=== PATIENT | male | born 1955 | race Caucasian/White ===

== ENCOUNTER 2023-08-02 08:47 | Outpatient (CLI) | payer OTHER, SELFPAY ==
[2023-08-02 09:14] LABS: Basophils Absolute Auto 0.1 K/mm3 (0.0-0.1); Eosinophils Absolute Auto 0.3 K/mm3 (0-0.3); Eosinophils Percent Auto 5.3 % (0-4.4); Hematocrit 39.6 % (42.0-52.0); Hemoglobin 12.6 g/dL (14.0-18.0); Immature Granulocyte Absolute 0.01 K/mm3 (0.00-0.031); Immature Granulocyte Percent A 0.2 % (0-0.5); Lymphocytes Absolute Auto 1.88 K/mm3 (0.9-3.2); Lymphocytes Percent Auto 36.6 % (18.3-44.2); Mean Corpuscular HGB Conc 31.8 g/dl (32-36); Mean Corpuscular Hemoglobin 28.2 pg (26-34); Mean Corpuscular Volume 88.6 fl (80-100); Mean Platelet Volume 8.6 fl (7.4-10.4); Monocytes Absolute Auto 0.5 K/mm3 (0.1-0.6); Monocytes Percent Auto 9.6 % (2.6-8.5); Neutrophils Absolute Auto 2.4 K/mm3 (1.3-6.7); Neutrophils Percent Auto 47.3 % (45.5-73.1); Platelet Count Result 138 k/mm3 (150-375); Red Blood Count 4.47 M/mm3 (4.6-6.20); Red Cell Distribution Width 13.4 % (11.5-14.5); White Blood Count 5.1 K/mm3 (4.5-10.0)
[2023-08-02 09:30] LABS: Alanine Aminotransferase 59 U/L (6-50); Albumin Level 4.1 g/dL (3.5-5.1); Alkaline Phosphatase 159 U/L (38-126); Anion Gap 9 mmol/L (4-12); Aspartate Amino Transferase 46 U/L (17-59); Bilirubin,Total 0.4 mg/dL (0.2-1.3); Blood Urea Nitrogen 24 mg/dL (9-20); Calcium 9.5 mg/dL (8.4-10.2); Carbon Dioxide 21 mmol/L (22-30); Chloride 113 mmol/L (98-107); Cholesterol 118 mg/dL (0-200); Estimated Glomerular Filt Rate 51; Glucose 150 mg/dL (65-110); HDL Direct 40 mg/dL; Potassium 4.4 mmol/L (3.4-5.0); Sodium 143 mmol/L (137-145); Triglycerides 78 mg/dL (<150)
[2023-08-02 09:41] LABS: LDL Cholesterol Direct 62 mg/dL
[2023-08-02 09:42] LABS: Appearance Urine Clear (Clear); Bacteria Urine None Seen /hpf; Bilirubin Urine Negative (Negative); Blood Urine Negative (Negative); Color Urine Yellow (Yellow); Glucose Urine UA Negative (Negative); Ketones Urine Negative (Negative); Leukocyte Esterase Ur Negative LEU/UL (Negative); Need Manual Microscopic Reviewed; Nitrate Urine Negative (Negative); Protein Urine Trace mg/dL (Negative); RBC Urine 0-2 /hpf (0-2); Squamous Epithelial Cell Urine Occasional /hpf (Few); Urobilinogen Urine 0.2 mg/dL (<2.0); WBC Urine 0-5 /hpf (0-3); pH Urine 5.5 (5.0-9.0)
[2023-08-02 09:44] LABS: Add Urine Microscopic? YES
[2023-08-02 09:48] LABS: Creatinine Urine 108.6 mg/dL
[2023-08-02 09:52] LABS: MALB Creatinine Ratio 12.3 mg/g (0-30); Microalbumin Urine Random 13.4 mg/L (0-16.7)
== END 2023-08-02 08:48 | disposition home or self-care (01) ==
PROVIDERS: PCP Family Medicine; Visit Provider Internal Medicine
DX: Z00.00 Encounter for general adult medical examination without abnormal findings (principal); Z13.1 Encounter for screening for diabetes mellitus; Z76.89 Persons encountering health services in other specified circumstances
CPT/HCPCS: 36415; 80053; 80061; 81001; 82043; 83036; 84153; 85025

== ENCOUNTER 2024-09-25 13:51 | Emergency (ER) | payer OTHER, SELFPAY ==
--- NOTE | ~2024-09-25 | CT_ITS ---
CT abdomen pelvis wo con Ordering provider: Colin Husain MD History: 68 years Male with . hematuria, hx stones . Comparison: None. Technique: CT abdomen and pelvis without IV and without oral contrast. Automated exposure control and iterative reconstruction technique were employed. The dose-length product was 876.96 mGy-cm. Findings: VISUALIZED LOWER CHEST: Normal. UPPER ABDOMINAL ORGANS: Liver: Lobulated outline suggestive of cirrhosis. Gallbladder: Small hyperdensity near to the neck suggestive of a stone. Ultrasound evaluation advised . Spleen: Normal. Stomach/duodenum: Normal. Pancreas: Normal. Adrenals: Normal. Kidneys: Multiple stones in the left kidney lower pole with the largest measures 5.4 mm. Tiny cyst is seen in the left kidney lower pole. Exophytic Soft tissue density also seen in the left kidney lower pole which measures 1.3 cm most likely a cyst. Follow-up advised. No definite left hydroureter or hydronephrotic changes seen. Calcific shadow is seen along the course of the left ureter in the pelvis most likely outside and measures 5 mm. Minimal fat stranding seen i n the area. Follow-up advised. Tiny stone in the right kidney lower pole. PELVIC ORGANS: The bladder is normal. BOWEL AND MESENTERY: Colon: No evidence of diverticulitis.. Normal appendix. Small Bowel: Normal. No obstruction. Peritoneum/mesentery: No free air or free fluid. No mesenteric lymphadenopathy. RETROPERITONEUM: Mild atheromatous disease of the abdominal aorta. No retroperitoneal lymphadenopat hy. MUSCULOSKELETAL: Superficial soft tissues: The superficial soft tissues are normal. Bones: Age appropriate degenerative changes of the spine. Erect symphysitis. Bilateral hip osteoarthr itic changes. IMPRESSION: 1. Bilateral kidney stones. 2. Calcific shadow which measures 5 mm seen along the course of the left ureter which may be an old adjacent to the ureter.. No definite left hydroureter or hydronephrotic changes seen. Minimal fat str anding is seen in the same area. Follow-up advised. 3. Highly suggestive liver cirrhosis. Clinical correlation advised. 4. Possible cholelithiasis. Ultrasound evaluation advised. 5. Soft tissue density in the left kidney. Follow-up advised. Reviewed, dictated and finalized at location A. IMPRESSION: 1. Bilateral kidney stones. 2. Calcific shadow which measures 5 mm seen along the course of the left urete r which may be an old adjacent to the ureter.. No definite left hydroureter or hydronephrotic changes seen. Minimal fat stranding is seen in the same area. Fo llow-up advised. 3. Highly suggestive liver cirrhosis. Clinical correlation advised. 4. Possible cholelithiasis. Ultrasound evaluation advised. 5. Soft tissue density in the left kidney. Follow-up advised.
[2024-09-25 14:08] VITALS: BP 136/78; PULSE 99; RESP 16; TEMP 36.9; O2SAT 100
[2024-09-25 14:54] VITALS: BP 136/78; PULSE 99; RESP 18; TEMP 36.9; O2SAT 100
--- NOTE | 2024-09-25 14:54 | ED_ITS ---
HPI - Male Genitourinary General Chief complaint: Urogenital-Male Stated complaint: hematuria, hx of kidney stones Time Seen by Provider: 09/25/24 14:46 History of Present Illness HPI Narrative: 68-year-old male with a past medical history including kidney stones requiring lithotripsy. Patient presents to the emergency department with right-sided flank pain and hematuria. States it feels very similar to his normal kidney stone. He has passed numerous stones without any interventions otherwise. Denies any fever, chills, nausea, vomiting abdominal pain. No trauma or injury. No urinary pain, dysuria, urgency, retention, or foul odor. Review of Systems 2 Review of Systems: As reviewed above in HPI Exam 2 Narrative: GENERAL: [Well-appearing, well-nourished, and in no acute distress.] HEAD: [Normocephalic, atraumatic.] EYES: [PERRLA and EOMI.] ENT: Nares clear, no rhinorrhea or epistaxis. Mucous membranes moist. NECK: Supple. CHEST: [Clear to auscultation. No respiratory distress.] HEART: [Regular rate and rhythm]. No murmur heard. [Normal peripheral pulses.] ABDOMEN: [Soft, nondistended], [nontender], [No rigidity or guarding] EXTREMITIES: Normal range of motion. [No edema.] SKIN: Warm, dry, no rash. NEURO: [No focal deficits]. Alert and oriented [x3.] PSYCH: [Normal mood and affect.] Course Vital Signs Vital signs: Vital Signs Temperature 36.9 C 09/25/24 14:08 Pulse Rate 99 09/25/24 14:08 Respiratory Rate 16 09/25/24 14:08 Blood Pressure 136/78 09/25/24 14:08 Pulse Oximetry 100 09/25/24 14:08 Oxygen Delivery Room Air 09/25/24 14:08 Temperature 36.9 C 09/25/24 14:54 Pulse Rate 99 09/25/24 14:54 Respiratory Rate 18 09/25/24 14:54 Blood Pressure 136/78 09/25/24 14:54 Pulse Oximetry 100 09/25/24 14:54 Oxygen Delivery Room Air 09/25/24 14:54 MDM - Male Genitourinary MDM Narrative Medical decision making narrative: 68-year-old male with history of kidney stones 1 previously requiring lithotripsy. Patient presents to the emergency room with right-sided flank discomfort and hematuria consistent with his kidney stone. Denies any fever, chills, nausea, vomiting, dysuria, hematuria, foul odor or retention. Patient otherwise is well appearing not any acute distress with normal vital signs without any tachycardia, fever, hypoxia blood pressure concerns. Considerations presently are for nephrolithiasis, urolithiasis, bladder stone, hematuria from an infection or cystitis. CT scan without contrast was ordered for delineation and a urinalysis obtained as well as blood work to assess kidney function. Patient is comfortable at this time and does not require analgesia medications. Previously seen Dr. Felipe from urology. Patient's laboratory studies reassuring. No leukocytosis or anemia. Normal platelet count. Electrolytes normal. Normal creatinine from baseline. Slightly hyperglycemic 192. LFTs mildly elevated but consistent with his previous levels. Urinalysis shows blood but no signs of infection. CT scan finding shows bilateral kidney stones and a 5 mm calcific structure in the left ureter. Liver cirrhosis evident, cholelithiasis without cholecystitis. Soft tissue density in left kidney. Patient made aware of the above imaging findings and given his symptomatic control at this time can be safely discharged with tamsulosin and follow up with his urologist. Patient's questions were answered he was safe for discharge. Medical Records Attestation: I reviewed the patient's medical records. Lab Data Attestation: I reviewed the patient's lab results. 09/25/24 15:14 09/25/24 15:14 Labs: Lab Results 09/25/24 09/25/24 Range/Units 14:42 15:14 WBC 6.0 (4.5-10.0) K/mm3 RBC 5.18 (4.6-6.20) M/mm3 Hgb 14.6 (14.0-18.0) g/dL Hct 45.2 (42.0-52.0) % MCV 87.3 (80-100) fl MCH 28.2 (26-34) pg MCHC 32.3 (32-36) g/dl RDW 13.4 (11.5-14.5) % Plt Count 146 L (150-375) k/mm3 MPV 9.1 (7.4-10.4) fl Immature Gran % (Auto) 0.2 (0-0.5) % Neut % (Auto) 45.7 (45.5-73.1) % Lymph % (Auto) 38.2 (18.3-44.2) % [place] % (Auto) 10.1 H (2.6-8.5) % Eos % (Auto) 4.8 H (0-4.4) % Baso % (Auto) 1.0 (0.2-1.2) % Lymph # (Auto) 2.30 (0.9-3.2) K/mm3 [place] # (Auto) 0.6 (0.1-0.6) K/mm3 Eos # (Auto) 0.3 (0-0.3) K/mm3 Baso # (Auto) 0.1 (0.0-0.1) K/mm3 Abs Immat Gran (auto) 0.01 (0.00-0.031) K/mm3 Absolute Neuts (auto) 2.8 (1.3-6.7) K/mm3 Absolute Nucleated RBC 0.000 (0.0-0.012) K/mm3 Nucleated RBC % 0.0 (0.0-0.2) % Sodium 137 (137-145) mmol/L Potassium 4.4 (3.4-5.0) mmol/L Chloride 106 (98-107) mmol/L Carbon Dioxide 21 L (22-30) mmol/L Anion Gap 10 (4-12) mmol/L BUN 24 H (9-20) mg/dL Creatinine 1.30 (0.7-1.3) mg/dL Estim Creat Clear Calc 49 ml/min Estimated GFR 55 L (59 - ) Glucose 192 H (65-110) mg/dL Calcium 9.3 (8.4-10.2) mg/dL Total Bilirubin 0.3 (0.2-1.3) mg/dL AST 68 H (17-59) U/L ALT 98 H (6-50) U/L Alkaline Phosphatase 167 H (38-126) U/L Total Protein 7.5 (6.3-8.2) g/dL Albumin 4.4 (3.5-5.1) g/dL Urine Color Yellow (Yellow) Urine Appearance Clear (Clear) Urine pH 5.5 (5.0-9.0) Ur Specific [place] 1.022 (1.001-1.035) Urine Protein Negative (Negative) mg/dL Urine Glucose (UA) Trace H (Negative) mg/dL Urine Ketones Trace H (Negative) mg/dL Ur Blood (Man) 3+ H (Negative) Urine Nitrate Negative (Negative) Urine Bilirubin Negative (Negative) Urine Urobilinogen 0.2 (<2.0) mg/dL Leukocyte Esterase Rfl Negative (Negative) CAESAR/UL Urine RBC >100 H (0-2) /hpf Urine WBC 0-5 (0-3) /hpf Ur Squamous Epith Cells None seen (Few) /hpf Urine Bacteria None seen /hpf Urine Casts 0-2 Imaging Data Attestation: I personally reviewed and interpreted this imaging study as follows: My impression: Impressions Abdomen/Pelvis CT 09/25/24 15:31 IMPRESSION: 1. Bilateral kidney stones. 2. Calcific shadow which measures 5 mm seen along the course of the left ureter which may be an old adjacent to the ureter.. No definite left hydroureter or hydronephrotic changes seen. Minimal fat stranding is seen in the same area. Follow-up advised. 3. Highly suggestive liver cirrhosis. Clinical correlation advised. 4. Possible cholelithiasis. Ultrasound evaluation advised. 5. Soft tissue density in the left kidney. Follow-up advised. Discharge Plan Discharge Clinical Impression: Kidney stones, Elevated LFTs, Abnormal CT scan, kidney Patient Disposition: Home Condition: Stable Instructions: Antibiotic Form, Kidney Stones (ED), How to Strain Your Urine (ED), Flank Pain (ED) Additional Instructions: Your CT scan shows bilateral kidney stones and 1 in the left side as approximately 5 mm. No signs of hydronephrosis. You do have a soft tissue density in the left kidney that need some outpatient follow-up for repeat imaging and monitoring. Your CT scan also shows some incidental findings including potential liver cirrhosis any do have mildly elevated LFTs which are consistent. You also have some potential gallstones which are not causing any issues at this time. Follow-up with regular doctor about all these as well as your urologist. Return with any emergent concerns we will send you home with some Flomax. Patient Language: Trinidadian Prescriptions: New tamsulosin [Flomax] 0.4 mg capsule 0.4 mg PO DAILY Qty: 20 0RF Follow-up/Referrals: Davi Fernández MD [Physician] - 1 Week (Kidney stones, hematuria) Mango Ramos MD [Physician] - Time of Disposition: 17:05
[2024-09-25 15:08] LABS: Add Urine Microscopic? YES; Appearance Urine Clear (Clear); Bacteria Urine None Seen /hpf; Bilirubin Urine Negative (Negative); Blood Urine 3+ (Negative); Color Urine Yellow (Yellow); Glucose Urine UA Trace mg/dL (Negative); Ketones Urine Trace mg/dL (Negative); Leukocyte Esterase Ur Negative LEU/UL (Negative); Nitrate Urine Negative (Negative); Non Pathogenic Casts 0-2; Protein Urine Negative (Negative); RBC Urine >100 /hpf (0-2); Specific Grav Ur 1.022 (1.001-1.035); Squamous Epithelial Cell Urine None Seen /hpf (Few); Urobilinogen Urine 0.2 mg/dL (<2.0); WBC Urine 0-5 /hpf (0-3); pH Urine 5.5 (5.0-9.0)
[2024-09-25 15:40] LABS: Basophils Absolute Auto 0.1 K/mm3 (0.0-0.1); Eosinophils Absolute Auto 0.3 K/mm3 (0-0.3); Eosinophils Percent Auto 4.8 % (0-4.4); Hematocrit 45.2 % (42.0-52.0); Hemoglobin 14.6 g/dL (14.0-18.0); Immature Granulocyte Absolute 0.01 K/mm3 (0.00-0.031); Immature Granulocyte Percent A 0.2 % (0-0.5); Lymphocytes Percent Auto 38.2 % (18.3-44.2); Mean Corpuscular HGB Conc 32.3 g/dl (32-36); Mean Corpuscular Hemoglobin 28.2 pg (26-34); Mean Corpuscular Volume 87.3 fl (80-100); Mean Platelet Volume 9.1 fl (7.4-10.4); Monocytes Absolute Auto 0.6 K/mm3 (0.1-0.6); Monocytes Percent Auto 10.1 % (2.6-8.5); Neutrophils Absolute Auto 2.8 K/mm3 (1.3-6.7); Neutrophils Percent Auto 45.7 % (45.5-73.1); Platelet Count Result 146 k/mm3 (150-375); Red Blood Count 5.18 M/mm3 (4.6-6.20); Red Cell Distribution Width 13.4 % (11.5-14.5)
[2024-09-25 15:50] LABS: Alanine Aminotransferase 98 U/L (6-50); Albumin Level 4.4 g/dL (3.5-5.1); Alkaline Phosphatase 167 U/L (38-126); Anion Gap 10 mmol/L (4-12); Aspartate Amino Transferase 68 U/L (17-59); Bilirubin,Total 0.3 mg/dL (0.2-1.3); Blood Urea Nitrogen 24 mg/dL (9-20); Calcium 9.3 mg/dL (8.4-10.2); Carbon Dioxide 21 mmol/L (22-30); Chloride 106 mmol/L (98-107); Estimated CRCL calculation 49 ml/min; Estimated Glomerular Filt Rate 55; Glucose 192 mg/dL (65-110); Potassium 4.4 mmol/L (3.4-5.0); Sodium 137 mmol/L (137-145); Total Protein 7.5 g/dL (6.3-8.2)
== END 2024-09-25 17:26 | disposition home or self-care (01) ==
PROVIDERS: Physician Assistant; Emergency Provider Student in an Organized Health Care Education/Training Program; PCP Internal Medicine
DX: N20.0 Calculus of kidney (principal); R79.89 Other specified abnormal findings of blood chemistry; R93.429 Abnormal radiologic findings on diagnostic imaging of unspecified kidney
CPT/HCPCS: 36415; 74176; 80053; 81001; 85025; 99284

== ENCOUNTER 2024-12-12 08:50 | Outpatient (CLI) | payer OTHER, SELFPAY ==
--- OUTSIDE RECORDS SUMMARY | 2024-12-12 09:08 | XMS_ITS | Clinical Summary ---
Author Organization [facility] Address [address] [place] [address] Care Team Providers Care Veterans Adviser Name Role Phone Shannon Melgar MD Unavailable Unknown, Provider Primary Care Provider Unavaila ble Source Comments [facility],non-owned Affiliates and Associated Physician Practices is amultiple site organization consisting of ambulatory clinics and hospital sitesin [place], [place] and [place]. This disclosure is being madepursuant to the Care Everywhere program and may not contain all information available regarding this patient. Last updated 18.[facility] Encounters Date Type Department Care Team Description 11/27/2024 3:15 PM CDT - 11/27/2024 11:59 PM CDT Hospital Encounter [address] [id number] Shannon Melgar MD Discharge Disposition: Home or Self Care 11/27/2024 Travel from Last 3 Months Social History Tobacco Use Types Packs/Day Years Used Date Smoking Tobacco: Never Assessed Sex and Gender Information Value Date Recorded Sex Assigned at Male 06/18/2024 8:32 AM [employer] Legal Sex Male 8:32 AM [employer] Gender Identity Male 06/18/2024 8:32 AM [employer] Sexual Orientation Not on file Plan of Treatment Health Maintenance Due Date Last Done Comments COLOGUARD (AGES 45-75) - COL ON CA SCREENING 1956 COLON MONITORING 1956 COLONOSCOPY - COLON CA SCREENING 1956 CT COLONOGRAPHY - COLON CA SCREENING 1956 Colorectal Cancer Screening 1956 FIT - COLON CA SCREENING 1956 FLEX SIG - COLON CA SCREENING 1956 DTAP/TDAP/TD VACCINES (1 - Tdap) 12/14/1975 PNEUMOCOCCAL VACCINE 50+ (1 of 2 - PCV) 12/14/1975 ZOSTER VACCINE (1 of 2) 2006 HEPATITIS B VACCINE (1 of 3 - Risk 3-dose series) 2016 Respiratory Syncytial Virus (RSV) Vaccine Pt: or over 60 yrs (1 - Risk 60-74 years 1-dose series) 2016 COVID-19 VACCINE (2 - 2023-2 5 season) 2024 02/08/2024 DEPRESSION SCREENING 04/17/2024 INFLUENZA VACCINE (#1) 2024 01/25/2024 LIPID TESTING 01/30/2029 01/31/2024, 12/01/2022 HEPATITIS C SCREENING Completed 01/31/2024 HIB VACCINE Aged Out No longer eligi ble based on patient's age to complete this topic HPV VACCINE Aged Out No longer eligi ble based on patient's age to complete this topic MENINGOCOCCAL (Group B) VACCINE SHARED DECISION-MAKING Aged Out No longer eligible based on patient's age to complete this topic MENINGOCOCCAL GROUPS A/C/Y/W VACCINE Aged Out No longer eligible b ased on patient's age to complete this topic Procedures Procedure Name Priority Date/Time Associated Diagnosis Comments US ELASTOGRAPHY Routine 11/27/2024 3:59 PM CDT Cirrhosis of liver without ascites, unspecified hepatic cirrhosis type (HCC) from Last 3 Months Results * US Elastography (11/27/2024 3:59 PM CDT) Anatomical Region Laterality Modality Abdomen Ultrasound 11/27/2024 4:47 PM CDT Impressions 11/27/2024 8:35 PM CDT Impression: Stiffness Score: Median 7.34 kPa. IQR/Median retio: 7.2. (Retio should be less than 30%). Reference: <5 kPa (1.3 m/sec)- High probability of being normal. <9 kPa (1.7 m/sec)- in the absence of other known clinical signs, rule out compensated advanced chronic liver disease (cACLD). If there is known clinical signs, May need for test for confirmation. 9-13 kPa (1.7-2.1 m/sec)-suggestive of cACLD but need for test for confirmation. >13 kPa (2.1 m/sec)- Rule in cACLD >17 kPa (2.4m/sec)- suggestive of clinically significant portal hypertension (CSPH). > Dictated by Kaur Ramírez 11/27/2024 4:47 PM > Dictated by Product Safety Manager I, Bairon Matos have personally reviewed and interpreted this examination/study. > Interpreting Provider: Bairon Matos on 11/27/2024 8:35 PM Narrative 11/27/2024 8:35 PM CDT PROCEDURE: US ELASTOGRAPHY, DATE/TIME OF EXAM: 11/27/2024 3:59 PM, LOCATION [facility] INDICATION: K74.60: Cirrhosis of liver without ascites, unspecified hepatic cirrhosis type (HCC) ADDITIONAL CLINICAL INFORMATION: Ordering Provider Reason For Exam: see media order Technologist Note: Additional: COMPARISON: None. Technique: A limited abdominal ultrasound was performed by using real-time and B-Mode to localize an optimal sampling site, to target only liver tissue. 50Hz Shear Wave pulses were applied and the resulting Shear Wave and Propagation Speed detected with an ultrasonic signal, using US Elastography. Skin to liver capsule distance and liver parenchyma were accessed during the entire examination with the US Elastography. At least ten Shear Waves were produced; individual measurements of each Shear Wave were calculated. Patient tolerated the procedure well and was discharged without incident. Findings: The median liver stiffness score was 7.34 kPa. The Interquartile Range (IQR) to Median ratio all measurement 7.2 %. Procedure Note Bairon Tineo MD - 11/27/2024 PROCEDURE: US ELASTOGRAPHY, DATE/TIME OF EXAM: 11/27/2024 3:59 PM, LOCATION [facility] INDICATION: K74.60: Cirrhosis of liver without ascites, unspecified hepaticcirrhosis type (HCC) ADDITIONAL CLINICAL INFORMATION: Ordering Provider Reason For Exam: see media order Technologist Note: Additional: COMPARISON: None. Technique: A limited abdominal ultrasound was performed by usingreal-time and B-Mode to localize an optimal sampling site, to target only liver tissue. 50Hz Shear Wave pulses were applied and the resulting Shear Wave and Propagation Speed detected with an ultrasonic signal, using US Elastography. Skin to liver capsule distance and liver parenchyma were accessed during the entire examination with the US Elastography. At least ten Shear Waves were produced; individual measurements of each Shear Wave were calculated. Patient tolerated the procedure well and was discharged withoutincident. Findings: The median liver stiffness score was 7.34 kPa. The Interquartile Range (IQR) to Median ratio all measurement 7.2 %. Impression: Stiffness Score: Median 7.34 kPa. IQR/Median retio: 7.2. (Retio shouldbe less than 30%). Reference: <5 kPa (1.3 m/sec)- High probability of being normal. <9 kPa (1.7 m/sec)- in the absence of other known clinical signs, ruleout compensated advanced chronic liver disease (cACLD). If there is known clinical signs, May need for test for confirmation. 9-13 kPa (1.7-2.1 m/sec)-suggestive of cACLD but need for test for confirmation. >13 kPa (2.1 m/sec)- Rule in cACLD >17 kPa (2.4m/sec)- suggestive of clinically significant portal hypertension (CSPH). > Dictated by Kaur Ramírez 11/27/2024 4:47 PM > Dictated by Product Safety Manager I, Bairon Matos have personally reviewed and interpreted this examination/study. > Interpreting Provider: Bairon Matos on 11/27/2024 8:35 PM us Shannon Melgar MD ORDERABLES Final Result from Last 3 Months Insurance [facility] Care Teams Veterans Adviser Relationship Specialty Start Date End Date Shannon Melgar MD [address] [address] PCP - Att[facility] 05/18/24 Unknown, Provider PCP - General 07/09/24
[2024-12-12 09:41] LABS: Hematocrit 44.6 % (42.0-52.0); Hemoglobin 14.4 g/dL (14.0-18.0); Immature Granulocyte Percent A 0.2 % (0-0.5); Lymphocytes Absolute Auto 1.86 K/mm3 (0.9-3.2); Mean Corpuscular HGB Conc 32.3 g/dl (32-36); Mean Corpuscular Hemoglobin 28.7 pg (26-34); Mean Corpuscular Volume 88.8 fl (80-100); Nucleated Red Blood Cells Absolute Auto 0.000 K/mm3 (0.0-0.012); Nucleated Red Blood Cells Perc 0.0 % (0.0-0.2); Platelet Count Result 141 k/mm3 (150-375); Red Blood Count 5.02 M/mm3 (4.6-6.20); White Blood Count 6.2 K/mm3 (4.5-10.0)
[2024-12-12 09:46] LABS: Ammonia < 9 umol/L (9-30)
[2024-12-12 09:51] LABS: Hemoglobin A1C 7.1 % (<5.7)
[2024-12-12 09:55] LABS: INR 1.2; Prothrombin Time 14.7 Seconds (11.1-14.7)
[2024-12-12 10:05] LABS: Alanine Aminotransferase 109 U/L (6-50); Albumin Level 4.3 g/dL (3.5-5.1); Alkaline Phosphatase 154 U/L (38-126); Anion Gap 8 mmol/L (4-12); Aspartate Amino Transferase 81 U/L (17-59); Bilirubin,Total 0.7 mg/dL (0.2-1.3); Blood Urea Nitrogen 29 mg/dL (9-20); Calcium 9.5 mg/dL (8.4-10.2); Carbon Dioxide 24 mmol/L (22-30); Chloride 102 mmol/L (98-107); Cholesterol 128 mg/dL (0-200); Estimated Glomerular Filt Rate 46; Glucose 146 mg/dL (65-110); HDL Direct 47 mg/dL; Potassium 4.6 mmol/L (3.4-5.0); Sodium 134 mmol/L (137-145); Total Protein 7.4 g/dL (6.3-8.2); Triglycerides 80 mg/dL (<150)
[2024-12-12 10:37] LABS: Hepatitis B Surface Antigen Negative (Negative); Thyroid Stimulating Hormone Reflex 1.880 uIU/mL (0.465-4.68)
[2024-12-12 10:41] LABS: Prostate Specific Antigen 0.8 ng/mL (< OR = 4.0)
[2024-12-12 10:42] LABS: HAV RESULT Negative (Negative)
[2024-12-12 10:57] LABS: Hepatitis B Surface Anti Res Positive
[2024-12-13 07:09] LABS: Hep B Core Ab, Total Negative (Negative)
[2024-12-18 16:08] LABS: ANA by IFA Rfx Titer/Pattern Positive (.)
== END 2024-12-12 08:51 | disposition home or self-care (01) ==
PROVIDERS: PCP Internal Medicine; Visit Provider Internal Medicine
DX: Z79.899 Other long term (current) drug therapy (principal)
CPT/HCPCS: 36415; 80053; 80061; 82140; 83036; 84153; 84443; 85025; 85610; 86015; 86038; 86704; 86706; 86709; 87340

== ENCOUNTER 2024-12-18 12:47 | Observation (INO) | payer OTHER, SELFPAY ==
--- NOTE | ~2024-12-18 | US_ITS ---
EXAM: US carotid duplex BI - 12/19/2024 8:31 CDT History: 69 years old Male with stroke workup Technique: Real-time sonographic images of the bilateral carotid and vertebral arterial systems were obtained. Color Doppler sonography and spectral waveform analysis were performed. Findings: Right Velocities (cm/sec): Right Common carotid Peak systolic velocity: 90 Right internal carotid Peak systolic velocity: 113 End diastolic velocity: 51 Right ICA/CCA ratio: 1.3 Right External carotid Peak systolic velocity: 90 Right Vertebral: Antegrade flow Left Velocities (cm/sec): Left Common carotid Peak systolic velocity: 93 Left internal carotid Peak systolic velocity: 93 End diastolic velocity: 46 Left ICA/CCA ratio: 1.0 Left External carotid Peak systolic velocity: 75 Left Vertebral: Antegrade flow Impression: No evidence of sonographically significant stenosis. Reviewed, dictated and finalized at location N. Impression: No evidence of sonographically significant stenosis.
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
--- NOTE | ~2024-12-18 | XR_ITS ---
EXAM/PROCEDURE: XR chest 2V - 12/18/2024 13:15 CDT HISTORY: 69 years old Male with pre-syncope TECHNIQUE: Two view(s) of the chest. COMPARISON: None available. FINDINGS: LUNGS/ PLEURA: No focal consolidation. No appreciable pneumothorax or large pleural effusion. HEART/ MEDIASTINUM: Heart appears normal in size. BONES: Degenerative changes. OTHER: Visualized upper abdomen is unremarkable. IMPRESSION: No acute process. Reviewed, dictated and finalized at location N. IMPRESSION: No acute process.
--- NOTE | ~2024-12-18 | MR_ITS ---
EXAMINATION: MR brain/brain stem wo/w con DATE: 12/19/2024 09:42 INDICATION: Transient alteration of awareness TECHNIQUE: Magnetic resonance imaging (MRI) of the brain and brainstem was performed without and with 20 mL Multihance intravenous contrast. Sequences included sagittal and axial T1-weighted SE, axial diffusion-weighted FS SE, axial 3D SWAN, axial T2-weighted FLAIR, and axial T2-weighted FSE. Postcontrast axial and coronal T1-weighted SE was obtained. Apparent diffusion coefficient (ADC) maps were created. COMPARISON: Head CT dated 12/18/2024 FINDINGS: There are no areas of restricted diffusion to suggest acute infarction. No intracranial hemorrhage or abnormal intracranial mass lesion. There are scattered areas of nonspecific increased T2-weighted signal intensity in the cerebral white matter, predominantly involving the deep and periventricular whi te matter. Single focus of susceptibility artifact in the anterior left frontal lobe consistent with sequela of chronic microhemorrhage.. The ventricles are symmetric and normal in size. There are no abnormal extra-axial fluid collections. Flow voids are seen in the cerebral arteries on the T2-weighted sequences consistent with their expected patency. Left vertebral artery is dominant. Visualized orbits and soft tissues are unremarkable. There are no areas of abnormal enhancement on the post contrast images. IMPRESSION: 1. Mild scattered periventricular predominant nonspecific white matter T2 hyperintensity which within normal limits for age and likely sequela of chronic small vessel ischemic disease. No acute intracranial process or abnormally enhancing brain lesions. Reviewed, dictated and finalized at location A. IMPRESSION: 1. Mild scattered periventricular predominant nonspecific white matter T2 hyper intensity which within normal limits for age and likely sequela of chronic smal l vessel ischemic disease. No acute intracranial process or abnormally enhancin g brain lesions.
[2024-12-18 12:55] VITALS: BP 136/91; PULSE 111; RESP 17; O2SAT 98
--- NOTE | 2024-12-18 13:05 | ECG_ITS ---
Test Date: 2024-12-18 13:57:43 Measurements Intervals [place] Rate: 98 P: 0 MS: 0 QRS: 16 QRSD: 96 T: 59 QT: 337 QTc: 431 Interpretive Statements NORMAL SINUS RHYTHM SEPTAL MYOCARDIAL INFARCTION , OF INDETERMINATE AGE [40+ ms Q WAVE IN V1/V2] ABNORMAL ECG No previous ECG available for comparison Electronically Signed On 12-18-2024 15:42:03 CDT by Jonathan Rosales M.D.
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
--- NOTE | 2024-12-18 13:11 | PC.NURSE ---
patient to radiology at this time
--- OUTSIDE RECORDS SUMMARY | 2024-12-18 13:54 | XMS_ITS | Clinical Summary ---
Author Organization [facility] Address [address] [place] [address] Care Team Providers Care Selenium Plant Operator Name Role Phone Shannon Melgar MD Unavailable Unknown, Provider Primary Care Provider Unavaila ble Source Comments [facility],non-owned Affiliates and Associated Physician Practices is amultiple site organization consisting of ambulatory clinics and hospital sitesin [place], [place], [place] and [place]. This disclosure is being madepursuant to the Care Everywhere program and may not contain all information available regarding this patient. Last updated 18.[facility] Encounters Date Type Department Care Team Description 11/27/2024 3:15 PM CDT - 11/27/2024 11:59 PM CDT Hospital Encounter [address] [phone] Shannon Meglar MD Discharge Disposition: Home or Self Care 11/27/2024 Travel from Last 3 Months Social History Tobacco Use Types Packs/Day Years Used Date Smoking Tobacco: Never Assessed Sex and Gender Information Value Date Recorded Sex Assigned at Male 06/18/2024 8:32 AM MANAGER R D Legal Sex Male 8:32 AM MANAGER R D Gender Identity Male 06/18/2024 8:32 AM MANAGER R D Sexual Orientation Not on file Plan of [...] Ramírez 11/27/2024 4:47 PM > Dictated by Electrical And Instrument Mechanic I, Bairon Matos have personally reviewed and interpreted this examination/study. > Interpreting Provider: Bairon Matos on 11/27/2024 8:35 PM Narrative 11/27/2024 8:35 PM CDT PROCEDURE: US ELASTOGRAPHY, DATE/TIME OF EXAM: 11/27/2024 3:59 PM, LOCATION [facility] INDICATION: K74.60: Cirrhosis of liver without ascites, [...] DATE/TIME OF EXAM: 11/27/2024 3:59 PM, LOCATION [facility] INDICATION: K74.60: Cirrhosis of liver without ascites, [...] Ramírez 11/27/2024 4:47 PM > Dictated by Electrical And Instrument Mechanic I, Bairon Matos have personally reviewed and interpreted this examination/study. > Interpreting Provider: Bairon Matos on 11/27/2024 8:35 PM us Shannon Melgar MD ORDERABLES Final Result from Last 3 Months Insurance [facility] Care Teams Selenium Plant Operator Relationship Specialty Start Date End Date Shannon Melgar MD [address] [address] PCP - [facility] 05/18/24 Unknown, Provider PCP - General 07/09/24
[2024-12-18 14:00] LABS: Hematocrit 45.8 % (42.0-52.0); Hemoglobin 14.7 g/dL (14.0-18.0); Immature Granulocyte Percent A 0.2 % (0-0.5); Lymphocytes Absolute Auto 1.79 K/mm3 (0.9-3.2); Mean Corpuscular HGB Conc 32.1 g/dl (32-36); Mean Corpuscular Hemoglobin 28.5 pg (26-34); Mean Corpuscular Volume 88.9 fl (80-100); Nucleated Red Blood Cells Absolute Auto 0.000 K/mm3 (0.0-0.012); Nucleated Red Blood Cells Perc 0.0 % (0.0-0.2); Platelet Count Result 153 k/mm3 (150-375); Red Blood Count 5.15 M/mm3 (4.6-6.20); White Blood Count 5.5 K/mm3 (4.5-10.0)
[2024-12-18 14:12] LABS: INR 1.1; Partial Thromboplastin Time 28.1 Seconds (22.3-36.8); Prothrombin Time 14.0 Seconds (11.1-14.7)
[2024-12-18 14:19] LABS: Alanine Aminotransferase 80 U/L (6-50); Albumin Level 4.4 g/dL (3.5-5.1); Alkaline Phosphatase 159 U/L (38-126); Anion Gap 7 mmol/L (4-12); Aspartate Amino Transferase 49 U/L (17-59); Bilirubin,Total 0.4 mg/dL (0.2-1.3); Blood Urea Nitrogen 26 mg/dL (9-20); Calcium 9.5 mg/dL (8.4-10.2); Carbon Dioxide 24 mmol/L (22-30); Chloride 105 mmol/L (98-107); Estimated CRCL calculation 47 ml/min; Estimated Glomerular Filt Rate 51; Glucose 229 mg/dL (65-110); Potassium 4.6 mmol/L (3.4-5.0); Sodium 136 mmol/L (137-145); Total Protein 7.6 g/dL (6.3-8.2)
--- OUTSIDE RECORDS SUMMARY | 2024-12-18 14:34 | XMS_ITS | Encounter Summary ---
Author Organization [facility] Address [facility] [place] [address] Care Team Providers Care Sap Payroll Consultant Name Role Phone Shannon Melgar MD Primary Care Provider El Cook MD Unavailable Encounter Details Date Type Department Care Team (Late st Contact Info) Description 07/03/2024 Therapy Plan [facility] Physical Therapy [address] [place] [address] Anila Gibbons, PT [facility] [place] [address] Social History Tobacco Use Types Packs/Day Years Used Date Smoking Tobacco: Never Passive Smoke Exposure: Never Smokeless Tobacco: Never Comments:Counseled by Dr. Neva saenz. Alcohol Use Standard Drinks/Week Comments Yes 3.3 (1 standard drink = 0.6 oz p ure alcohol) socially AUDIT-C Answer Date Recorded Q1: How often do you have a drink containing alc ohol? Monthly or less 08/01/2023 Q2: How many drinks containi ng alcohol do you have on a typical day when you are drinking? 3 or 4 08/01/2023 Q3: How often do you have si x or more drinks on one occasion? Never 08/01/2023 PHQ-2 Answer Date Recorded Patient Health Questionnaire-2 Score 0 06/04/2024 Sex and Gender Information Value Date Recorded Sex Assigned at Male 05/02/2024 1:46 PM CARTRIDGE MAKER Legal Sex Male 2:51 PM CARTRIDGE MAKER Gender Identity Male 06/04/2024 4:19 PM CARTRIDGE MAKER Sexual Orientation Straight 06/04/2024 4: 19 PM CARTRIDGE MAKER documented as of this encounter Plan of Treatment Upcoming Encounters Date Type Department Care Team (Late st Contact Info) Description 03/04/2025 3:00 PM CARTRIDGE MAKER [facility] [place] [address] [address] [place] [address] Shannon Melgar MD [facility] [address] [address] 04/22/2025 10:30 AM CARTRIDGE MAKER Office Visit [facility] [place] [address] Dione Duke PA 3 [facility] [address] [place] [address] 06/04/2025 4:20 PM CARTRIDGE MAKER Office Visit [facility] [address] [place] [address] Shannon Melgar MD [facility] [address] [address] documented as of this encounter Visit Diagnoses Not on filedocumented in this encounter Additional Health Concerns Assessment Noted Time PHQ-9 Depression Total Score: 2 06/04/19 25 5:17 PM CARTRIDGE MAKER documented as of this encounter Care Teams Sap Payroll Consultant Relationship Specialty Start Date End Date Shannon Melgar MD [address] [place] [id number] PCP - General INTERNAL MEDICINE 08/01/23 El Cook MD [address] [phone] UNKNOWN PHYSICIAN SPECIALTY 01/15/24 documented as of this encounter
--- OUTSIDE RECORDS SUMMARY | 2024-12-18 14:34 | XMS_ITS | Encounter Summary ---
Author Organization [facility] Address [facility] [place] [address] Care Team Providers Care Display And Banner Designer Name Role Phone Shannon Melgar MD Primary Care Provider [phone] El Cook MD Unavailable Encounter Details Date Type Department Care Team (Late st Contact Info) Description 06/21/2024 Adku Message Enc [facility] - [address] [place] [address] [place] Provider lab results Social History Tobacco Use Types Packs/Day Years [...] Sex Assigned at Male 05/02/2024 1:46 PM RESPIRATORY CARE TECHNICIAN Legal Sex Male 2:51 PM RESPIRATORY CARE TECHNICIAN Gender Identity Male 06/04/2024 4:19 PM RESPIRATORY CARE TECHNICIAN Sexual Orientation Straight 06/04/2024 4: 19 PM RESPIRATORY CARE TECHNICIAN documented as of this encounter Plan of Treatment Upcoming Encounters Date Type Department Care Team (Late st Contact Info) Description 03/04/2025 3:00 PM RESPIRATORY CARE TECHNICIAN [facility] [place] [facility] [address] [place] [address] Shannon Melgar MD [address] [place] [address] 04/22/2025 10:30 AM RESPIRATORY CARE TECHNICIAN Office [facility] [address] [place] [address] Dione Duke PA 3 [facility] [address] [place] [address] 06/04/2025 4:20 PM RESPIRATORY CARE TECHNICIAN Office Visit [facility] - [address] [place] [address] Shannon Melgar MD [facility] [address] [address] documented as of this encounter Visit Diagnoses Not on filedocumented in this encounter Additional Health Concerns Assessment Noted Time PHQ-9 Depression Total Score: 2 06/04/19 25 5:17 PM RESPIRATORY CARE TECHNICIAN documented as of this encounter Care Teams Display And Banner Designer Relationship Specialty Start Date End Date Shannon Melgar MD [address] [place] [id number] PCP - General INTERNAL MEDICINE 08/01/23 El Cook MD [address] [place] [address] UNKNOWN PHYSICIAN SPECIALTY 01/15/24 documented as of this encounter
--- OUTSIDE RECORDS SUMMARY | 2024-12-18 14:35 | XMS_ITS | Clinical Summary ---
Author Organization [facility] Address [address] [place] [address] Care Team Providers Care Valve Inserter Name Role Phone Shannon Melgar MD Primary Care Provider [phone] El Cook MD Unavailable Allergies Active Allergy Reactions Criticality Noted Date Comments Sulfa Antibiotics Hives 01/13/2021 Medications Coenzyme Q10 (COQ10) 30 MG Cap Active Magnesium Oxide 420 MG Tab Active fish oil (OMEGA-3 FATTY ACID) 1000 MG Cap capsule Take 1 capsule (1,000 mg total) by mouth 2 (two) times daily. Active multi vitamin/mineral s (THERA-M ENHANCED) tablet Take 1 tablet by mouth daily. Active ALANINE OR Beta-alanine. Supplement for bone support. Active traMADol (ULTRAM) 50 MG tabletIndicatio ns:Chronic Pain Take 1 tablet (50 mg total) by mouth daily as needed for Pain. Indications: Chronic Pain 30 tablet 01/31/20 24 Active sildenafil (REVATIO) 20 MG tablet TAKE 1 TO 5 TABLETS BY MOUTH ONE HOUR BEFORE SEXUAL ACTIVITY 03/25/20 24 Active Testosterone 1.62 % GelIndications: Low testosterone in male 1 APPLICATION BY OTHER ROUTE DAILY. 75 g 09/11/19 25 Active lactulose (CHRONULAC) 10 GM/15ML solutionIndicat ions:Cirrhosis of liver without ascites, unspecified hepatic cirrhosis type (CMS/HCC HHS/HCC) Take 30 mLs (20 g total) by mouth nightly as needed. 240 mL 12 12/04/19 25 Active tirzepatide (MOUNJARO) 12.5 MG/0.5ML injectionIndica tions:Diabetes Mellitus Inject 12.5 mg into the skin once a week. Indications: Diabetes 6 mL 1 12/04/19 25 Active Finerenone (KERENDIA) 10 MG TabIndications: CKD stage 3 due to type 2 diabetes mellitus (CMS/HCC HHS/HCC) Take 10 mg by mouth daily. 90 tablet 1 12/04/19 25 Active carvedilol (COREG) 6.25 MG tabletIndicatio ns:Hypertension associated with type 2 diabetes mellitus (CMS/HCC HHS/HCC) Take 1 tablet (6.25 mg total) by mouth 2 (two) times daily. 180 tablet 1 12/04/19 25 Active ELIQUIS 5 MG tabletIndicatio ns:Persistent atrial fibrillation (CMS/HCC HHS/HCC) Take 1 tablet (5 mg total) by mouth 2 (two) times daily. 60 tablet 5 12/04/19 25 Active lisinopril (PRINIVIL) 10 MG tabletIndicatio ns:Hypertension associated with type 2 diabetes mellitus (CMS/HCC HHS/HCC) Take 1 tablet (10 mg total) by mouth daily. 90 tablet 1 12/04/19 25 Active metFORMIN (GLUCOPHAGE) 500 MG tabletIndicatio ns:Type 2 diabetes mellitus with hyperglycemia, without long-term current use of insulin (CMS/HCC HHS/HCC) Take 1 tablet (500 mg total) by mouth daily with breakfast. 90 tablet 1 12/04/19 25 Active rosuvastatin (CRESTOR) 20 MG tabletIndicatio ns:Hyperlipidem ia associated with type 2 diabetes mellitus (CMS/HCC HHS/HCC) Take 1 tablet (20 mg total) by mouth nightly at bedtime. 90 tablet 1 12/04/19 25 Active venlafaxine XR (EFFEXOR-XR) 150 MG 24 hr capsuleIndicati ons:Mild episode of recurrent major depressive disorder,SHRADDHA (generalized anxiety disorder) Take 1 capsule (150 mg total) by mouth daily. 90 capsule 1 12/04/19 25 Active vitamin D2, ergocalciferol, (DRISDOL) 1.25 mg capsuleIndicati ons:Vitamin D deficiency Take 1 capsule (1.25 mg total) by mouth every 7 days. 12 capsule 3 12/04/19 25 Active vitamin D2, ergocalciferol, (DRISDOL) 1.25 mg capsule Take 1 capsule (1.25 mg total) by mouth. 2024 Discontinued(R eorder) venlafaxine XR (EFFEXOR-XR) 150 MG 24 hr capsuleIndicati ons:Mild episode of recurrent major depressive disorder,SHRADDHA (generalized anxiety disorder) Take 1 capsule (150 mg total) by mouth daily. 90 capsule 1 06/04/19 25 2024 Discontinued rosuvastatin (CRESTOR) 20 MG tabletIndicatio ns:Hyperlipidem ia associated with type 2 diabetes mellitus (CMS/HCC HHS/HCC) Take 1 tablet (20 mg total) by mouth nightly at bedtime. 90 tablet 1 06/04/192024 Discontinued(R eorder) carvedilol (COREG) 6.25 MG tabletIndicatio ns:Hypertension associated with type 2 diabetes mellitus (CMS/HCC HHS/HCC) Take 1 tablet (6.25 mg total) by mouth 2 (two) times daily. 180 tablet 1 06/04/192024 Discontinued(R eorder) ELIQUIS 5 MG tabletIndicatio ns:Persistent atrial fibrillation (CMS/HCC HHS/HCC) Take 1 tablet (5 mg total) by mouth 2 (two) times daily. 60 tablet 5 06/04/192024 Discontinued(R eorder) tirzepatide (MOUNJARO) 10 MG/0.5ML injectionIndica tions:Diabetes Mellitus Inject 10 mg into the skin once a week. Indications: Diabetes 6 mL 1 06/04/192024 Discontinued(T herapy completed) Finerenone (KERENDIA) 10 MG TabIndications: CKD stage 3 due to type 2 diabetes mellitus (CMS/HCC HHS/HCC) Take 10 mg by mouth daily. 90 tablet 1 06/06/192024 Discontinued(R eorder) lisinopril (PRINIVIL) 10 MG tabletIndicatio ns:Hypertension associated with type 2 diabetes mellitus (CMS/HCC HHS/HCC) Take 1 tablet (10 mg total) by mouth daily. 90 tablet 1 10/08/192024 Discontinued(R eorder) metFORMIN (GLUCOPHAGE) 500 MG tabletIndicatio ns:Type 2 diabetes mellitus with hyperglycemia, without long-term current use of insulin ([facility]) Take 1 tablet (500 mg total) by mouth daily with breakfast. 10/09/192024 Discontinued(R eorder) venlafaxine XR (EFFEXOR-XR) 150 MG 24 hr capsuleIndicati ons:Mild episode of recurrent major depressive disorder,SHRADDHA (generalized anxiety disorder) Take 1 capsule by mouth once daily 90 capsule 11/23/192024 Discontinued(R eorder) potassium citrate CR (UROCIT-K) 10 MEQ (1080 MG) tablet Take 1 tablet (10 mEq total) by mouth 3 (three) times daily with meals. 10/09/192024 Discontinued Active Problems Problem Noted Date Diagnosed Date Injury of tendon of long hea d of biceps, left, initial encounter 12/03/2024 Impingement syndrome of left shoulder 12/03/2024 Cirrhosis of liver without a scites, unspecified hepatic cirrhosis type ([facility]) 10/07/2024 Longstanding persistent atri al fibrillation ([facility]) 02/29/2024 Hyperlipidemia associated wi th type 2 diabetes mellitus ([facility]) 08/01/2023 Sciatica of left side 08/01/2023 Hypertension associated with type 2 diabetes mellitus ([facility]) 08/01/2023 SHRADDHA (generalized anxiety disorder) 08/01/2023 Mild episode of recurrent major depressive disor ashley 08/01/2023 Type 2 diabetes mellitus wit h hyperglycemia, without long-term current use of insulin ([facility]) 08/01/2023 Encounters Date Type Department Care Team Description 12/12/2024 8:20 AM CDT Laboratory Only [facility] [place] [address] [place] [address] Shannon Melgar MD 12/12/2024 Travel 12/11/2024 [facility]phone [facility] [place] [address] [place] [address] Shannon Melgar MD Information 12/05/2024 [facility]phone [facility] [place] [address] [address] [address] [place] [address] Shannon Melgar MD Information 12/03/2024 3:40 PM CDT Office Visit [place] [address] [address] [address] [place] [address] Shannon Melgar MD Annual (Cirrhosis of the liver. ); Diabetes; Hypertension; Anxiety; Depression; Kidney Stones (H/o); Atrial Fibrillation (/); Follow Up (Chronic medical issues); Physical; Hyperlipidemia; Weight Problem; Low Testosterone (/); Liver Disease 12/03/2024 2:20 PM CDT Office Visit [facility] [address] [place] [address] Nehemiah Almonte MD Follow Up (Left shoulder ) 12/03/2024 Scan Film[employer] SRVCS Scanned, [facility] 12/03/2024 Travel 11/07/2024 [facility]phone [facility] [place] [address] [address] [address] [address] [place] [address] Shannon Melgar MD Orders 11/06/2024 [facility]phone [facility] [address] [address] [address] [address] [place] [address] Shannon Melgar MD Orders 10/11/2024 Telephone [facility] [address] [place] [address] Nehemiah Almonte MD Appointment Request 10/08/2024 9:15 AM CDT Office Visit [facility] [address] Shaw Martinez MD Atrial Fibrillation (Follow up) 10/08/2024 Orders Only [facility] [place] [address] [address] [address] [address] [place] [address] Shannon Melgar MD 10/08/2024 Travel 10/08/2024 Telephone [facility], [address] [address] Shaw Martinez MD Information 10/07/2024 9:20 AM CDT Office Visit [place] [address] [facility] [address] [place] [address] Shannon Melgar MD Follow Up (Pt has questions about abdominal us done at [facility]); ER F/U (Yefri ); Kidney Stones (/); Cirrhosis 10/07/2024 Results Follow-Up [place] [address] [address] [facility] [address] [place] [address] Shannon Melgar MD BASIC METABOLIC PANEL, CBC W/DIFF AUTOMATED, URINALYSIS 10/07/2024 Travel 09/25/2024 Scan Bamatea INFO SRVCS Scanned, [facility] CT (SCAN) 09/24/2024 Telephone [place] [address] [address] [facility] [address] [place] [address] Shannon Melgar MD Kidney Stones; Returned Call from Last 3 Months Immunizations Immunization Administration Dates Next Due Arexvy Respiratory Syncytial Virus (RSV, adjuvanted) 0.5 mL, PF 02/08/2024 Influenza Peds (Generic) 01/25/2024 MODERNA COVID-19 BIVALENT (6-11), MRNA, LNP-S, P F 02/08/2024 Pneumococcal (Pneumovax 23) 06/02/2021 Pneumococcal (Prevnar 20) 06/04/2024 Tdap (Generic) 12/24/2018,06/15/2008 Zoster (Zostavax) [address] Unt/0.65Ml 04/18/2017 Family History Medical History Relation Comments Diabetes Father Early Father CVA Heart Disease Father Hyperlipidemia Father Hypertension Father Stroke Father Depression Mother Diabetes Mother Drug Abuse Mother Sleeping pills Hypertension Mother Mental Health Mother COPD Sister Diabetes Sister Early Sister CHATTERJEE Hyperlipidemia Sister Hypertension Sister Mental Health Sister Stroke Sister Relation Status Comments Father Mother Sister Social History Tobacco Use Types Packs/Day Years Used Date Smoking Tobacco: Never Passive Smoke Exposure: Never Smokeless Tobacco: Never Tobacco Cessation:Counseling Given: Not Answered Comments:Counseled by Dr. Melgar. Alcohol Use Standard Drinks/Week Comments Yes 3.3 (1 standard drin k = 0.6 oz pure alcohol) About 1 oz/week with my on date night AUDIT-C Answer Date Recorded Q1: How often [...] Answer Date Recorded Patient Health Questionnaire-2 Score 3 12/03/2024 Sex and Gender Information Value Date Recorded Sex Assigned at Male 05/02/2024 1:46 PM PLATING EQUIPMENT TENDER Legal Sex Male 2:51 PM PLATING EQUIPMENT TENDER Gender Identity Male 06/04/2024 4:19 PM PLATING EQUIPMENT TENDER Sexual Orientation Straight 06/04/2024 4: 19 PM PLATING EQUIPMENT TENDER Last Filed Vital Signs Vital Sign Reading Time Taken Comments Blood Pressure 110/70 12/03/2024 3:45 PM CDT Pulse 78 12/03/2024 3:45 PM CDT Temperature 36.9 C (98.4 F) 12/03/2024 3:45 PM CDT Respiratory Rate 14 12/03/2024 3:45 PM CDT Oxygen Saturation 98% 12/03/2024 3:45 PM CDT Inhaled Oxygen Concentration - - Weight 92.6 kg (204 lb 3.2 oz) 12/03/2024 3:45 P M CDT Height 177.8 cm (5' 10) 12/03/2024 3:45 PM CDT Body Mass Index 29.3 12/03/2024 3:45 PM CDT Plan of Treatment Upcoming Encounters Date Type Department Care Team (Late st Contact Info) Description 03/04/2025 3:00 PM PLATING EQUIPMENT TENDER Office Visit [facility] [place] [address] [address] [place] [address] Shannon Melgar MD [address] [place] [address] [address] [place] [address] 04/22/2025 10:30 AM PLATING EQUIPMENT TENDER Office Visit [facility] [address] [place] [address] Dione Duke PA [address] [facility] [address] [place] [address] 06/04/2025 4:20 PM PLATING EQUIPMENT TENDER Office Visit [facility] [place] [address] [facility] [address] [place] [address] Shannon Melgar MD [address] [facility] [address] [place] [address] Health Maintenance Due Date Last Done Comments Zoster Vaccines (2 of 3) 06/13/2017 04/18/2017 Hemoglobin A1C 07/31/2024 01/31/2024, 08/02/2023 COVID-19 Vaccine (1 - 2023-2 5 season) 2024 02/08/2024 Lipid Panel 01/30/2025 01/31/2024, 12/01/2022, 02/07/2017 Kidney Health Evaluation 06/04/2025 06/04/2024 Diabetes: Retinopathy Eye Exam 01/04/2026 01/05/2024 Colorectal Cancer Screening Colonoscopy (10 Years) 03/29/2028 03/29/2018 DTaP, Tdap and Td Vaccines ( 3 - Td or Tdap) 12/24/2028 12/24/2018, 06/15/2008 Hepatitis C Completed 01/31/2024 RSV Immunization or 60+ Years Completed 02/08/2024 Pneumococcal Vaccine: 50+ Years Completed 06/04/2024, 06/02/2021 PHQ-2 (Physician [place]) Completed 12/03/2024 Meningococcal B Vaccine Aged Out No l onger eligible based on patient's age to complete this topic Meningococcal Vaccine Aged Out No ehsan krista eligible based on patient's age to complete this topic RSV Immunizations Under 20 Months Aged Out No longer eligible b ased on patient's age to complete this topic Procedures Procedure Name Priority Date/Time Associated Diagnosis Comments URINALYSIS, AUTO, COMPLETE Routine 10/07/2024 9:47 AM CDT Kidney stone CBC W/DIFF AUTOMATED Routine 10/07/2024 9:47 AM CDT Kidney stone BASIC METABOLIC PANEL Routine 10/07/2024 9:47 AM CDT Kidney stone COLLECTION VENOUS BLOOD VENIPUNCTURE Routine 10/07/2024 9:45 AM CDT Kidney stone CT GENERIC 09/25/2024 HEPATITIS C ANTIBODY Routine 01/31/2024 4:00 PM CDT General medical exam Drug therapy LIPID PANEL Routine 01/31/2024 4:00 PM CDT General medical exam Drug therapy HEMOGLOBIN, GLYCOSYLATED Routine 01/31/2024 4:00 PM CDT General medical exam Drug therapy DIABETIC RETINOPATHY EXAM (NEGATIVE)(SCAN ORDER) Routine 01/05/2024 COLONOSCOPY GENERIC (SCAN ORDER) 03/29/2018 from Last 3 Months or Most Recently Relevant to Health Maintenance Results * (ABNORMAL) URINALYSIS (10/07/2024 9:47 AM CDT) COLOR (U) YELLOW 10/07/2024 2:33 PM CDT [facility] TRANSPARENCY CLEAR CLEAR 10/07/2024 2:33 PM CDT [facility] SPECIFIC GRAVITY (U) 1.025 1.003 - 1.040 10/07/2024 2:33 PM CDT [facility] U PH 6.0 5.0 - 9.0 10/07/2024 2:33 PM CDT [facility] PROTEIN RANDOM (U) NEGATIVE NEGATIVE 10/07/2024 2:33 PM CDT [facility] GLUCOSE (U) NEGATIVE NEGATIVE 10/07/2024 2:33 PM CDT [facility] KETONES MG/DL (U) NEGATIVE NEGATIVE 10/07/2024 2:33 PM CDT [facility] BILIRUBIN (U) NEGATIVE NEGATIVE 10/07/2024 2:33 PM CDT [facility] BLOOD (U) NEGATIVE NEGATIVE 10/07/2024 2:33 PM CDT [facility] UROBILINOGEN 0.2 0.0 - 2.0 EU/DL 10/07/2024 2:33 PM CDT [facility] NITRITES NEGATIVE NEGATIVE 10/07/2024 2:33 PM CDT [facility] LEUKOCYTES (U) NEGATIVE NEGATIVE 10/07/2024 2:33 PM CDT [facility] RBC/HPF 0-3 0 - 3 /HPF 10/07/2024 2:33 PM CDT [facility] WBC/HPF 0-3 0 - 3 /HPF 10/07/2024 2:33 PM CDT [facility] EPI/HPF 0-3 /HPF 10/07/2024 2:33 PM CDT [facility] BACTERIA (U) 1+(A) NONE SEEN 10/07/2024 2:33 PM CDT [facility] URINE SPECIMEN OBTAINED BY CLEAN CATCH PROCEDURE / Unknown 10/07/2024 9:47 AM CDT Shannon Melgar MD URINE ORDERABLES Final Result [facility] [address] [place] [address], * (ABNORMAL) BASIC METABOLIC PANEL (10/07/2024 9:47 AM CDT) [facility] SODIUM S/P/B 140 136 - 145 MMOL/L 10/07/2024 2:24 PM CDT [facility] POTASSIUM S/P/B 4.8 3.5 - 5.1 MMOL/L 10/07/2024 2:24 PM [facility] CHLORIDE S/P/B 104 98 - 107 MMOL/L 10/07/2024 2:24 PM [facility] CO2 29.7 21 - 32 MMOL/L 10/07/2024 2:24 PM [facility] GLUCOSE 207(H) 70 - 99 MG/DL 10/07/2024 2:24 PM T [facility] BUN 25(H) 7 - 18 MG/DL 10/07/2024 2:24 PM [facility] CREATININE S/P/B 1.43(H) 0.70 - 1.30 MG/DL 10/07/2024 2:24 PM [facility] CALCIUM S/P/B 9.3 8.4 - 10.5 MG/DL 10/07/2024 2:24 PM [facility] ANION GAP 6.3 5 - 15 MMOL/L 10/07/2024 2:24 PM [facility] Comment:REFERENCE RANGE NOT ESTABLISHED OSMOLALITY (CALC) 300 MOSM/KG 025 2:24 PM [facility] Comment:REFERENCE RANGE NOT ESTABLISHED GFR ESTIMATE 54(L) >90 ML/MIN/1. 73 M2 10/07/2024 2:24 PM [facility] GFR NOTES GFR REFERENCE S: 10/07/2024 2:24 PM [facility] Comment: THE ESTIMATED GFR IS CALCULATED USING THE 2020 CKD-EPI EQUATION. THE FOLLOWING CATEGORIES FOR GRADING RENAL FUNCTION ARE RECOMMENDED BY THE INTERNATIONAL SOCIETY OF NEPHROLOGY (KDIGO 2012 CLINICAL PRACTICE GUIDELINE). G1,NORMAL OR HIGH: >89 ml/min/1.73 m2 G2,MILDLY DECREASED: 60-89 ml/min/1.73 m2 G3A,MILDLY TO MODERATELY DECREASED: 45-59 ml/min/1.73 m2 G3B,MODERATELY TO SEVERELY DECREASED: 30-44 ml/min/1.73 m2 G4,SEVERELY DECREASED: 15-29 ml/min/1.73 m2 G5,KIDNEY FAILURE: <15 ml/min/1.73 m2 10/07/2024 9:47 AM CDT Shannon Melgar MD LABORATORY Final Result -[facility] [address] [place] [address], * (ABNORMAL) CBC W/DIFF AUTOMATED (10/07/2024 9:47 AM CDT) WBC 5.28 4.00 - 10.80 x10'3/uL 10/07/2024 3:36 PM CDT MG-[facility] RBC 5.08 4.50 - 6.10 x10'6/uL 10/07/2024 3:36 PM CDT [facility] HGB 14.5 13.0 - 18.0 G/DL 10/07/2024 3:36 PM CDT [facility] HCT 44.5 37.0 - 52.0 % 10/07/2024 3:36 PM CDT [facility] MCV 87.6 78.0 - 100.0 FL 10/07/2024 3:36 PM CDT [facility] MCH 28.5 27.0 - 31.0 PG 10/07/2024 3:36 PM CDT [facility] MCHC 32.6(L) 33.0 - 36.0 G/DL 10/07/2024 3:36 PM CDT [facility] RDW 13.5 11.5 - 14.5 % 10/07/2024 3:36 PM CDT [facility] PLT 158 150 - 350 x10'3/uL 10/07/2024 3:36 PM CDT [facility] MPV 8.9 7.4 - 10.4 FL 10/07/2024 3:36 PM CDT [facility] DIFFERENTIAL TYPE AUTOMATED DIFFERENTIAL 10/07/2024 3:36 PM CDT [facility] NEUTROPHILS % 53.5 % 10/07/2024 3:36 PM CDT [facility] LYMPHOCYTES % 32.0 % 10/07/2024 3:36 PM CDT [facility] MONOCYTES % 9.5 % 10/07/2024 3:36 PM CDT [facility] EOSINOPHILS % 4.2 % 10/07/2024 3:36 PM CDT [facility] BASOPHILS % 0.4 % 10/07/2024 3:36 PM CDT [facility] IMMATURE GRANS % 0.4 % 10/07/2024 3:36 PM CDT [facility] ABS. NEUTROPHILS 2.83 1.60 - 8.30 x10'3/uL 10/07/2024 3:36 PM CDT [facility] ABS. LYMPHOCYTES 1.69 0.80 - 4.70 x10'3/uL 10/07/2024 3:36 PM CDT [facility] ABS. MONOCYTES 0.50 0.00 - 1.50 x10'3/uL 10/07/2024 3:36 PM CDT [facility] ABS. EOSINOPHILS 0.22 0.00 - 0.40 x10'3/uL 10/07/2024 3:36 PM CDT [facility] ABS. BASOPHILS 0.02 0.00 - 0.20 x10'3/uL 10/07/2024 3:36 PM CDT [facility] ABS. IMMATURE GRANULOCYTES 0.02 0.00 - 0.03 x10'3/uL 10/07/2024 3:36 PM CDT [facility] 10/07/2024 9:47 AM CDT us Shannon Melgar MD LABORATORY Final Result [facility] [address] [place] [address], [place] [phone] * CT GENERIC (09/25/2024) Anatomical Region Laterality Modality Other 09/25/2024 [facility] Scanned SCANNING Final Resu lt * (ABNORMAL) HEMOGLOBIN, GLYCOSYLATED (01/31/2024 4:00 PM CDT) HGB A1C 6.8(H) 4.5 - 6.2 % 02/01/2024 5:12 PM CDT [facility] ESTIMATED AVG GLUCOSE 148(H) 74 - 106 MG/DL 02/01/2024 5:12 PM CDT [facility] 01/31/2024 4:00 PM CDT Shannon Melgar MD LABORATORY Final Result Performing Organization Address City/[facility]/ZIP Co de Phone Number [facility] [address] [place] [address], [place] [phone] * (ABNORMAL) LIPID PANEL (01/31/2024 4:00 PM CDT) CHOLESTEROL 117 <200 MG/DL 02/01/2024 3:52 PM CDT [facility] TRIGLYCERIDES 164(H) <150 MG/DL 02/01/2024 3:52 PM CDT [facility] HDL 46 >40 MG/DL 02/01/2024 3:52 PM CDT [facility] LDL-C 38 <100 MG/DL 02/01/2024 3:52 PM CDT [facility] VLDL CALCULATION 33(H) 5 - 28 MG/DL 02/01/2024 3:52 PM CDT [facility] CHOL/HDL RATIO 2.5 0.0 - 4.0 02/01/2024 3:52 PM CDT [facility] LDL/HDL 0.8 0.41 - 2.13 02/01/2024 3:52 PM CDT [facility] NON HDL CHOLESTEROL 71 <140 MG/DL 02/01/2024 3:52 PM CDT [facility] 01/31/2024 4:00 PM CDT Shannon Melgar MD LABORATORY Final Result Performing Organization Address [facility] de Phone Number [facility] [address] [place] [address], [place] [phone] * HEPATITIS C ANTIBODY (01/31/2024 4:00 PM CDT) HEPATITIS C AB NON-REACTI VE NON-REACT MIGUEL A 02/01/2024 6:48 PM CDT [facility] Comment: ANTIBODIES TO HCV NOT DETECTED. DOES NOT EXCLUDE THE POSSIBILITY OF EXPOSURE TO HCV. 01/31/2024 4:00 PM CDT Shannon Melgar MD LABORATORY Final Result Performing Organization Address [facility] Co de Phone Number [facility] [address] [place] [address], [place] [phone] * DIABETIC RETINOPATHY EXAM (NEGATIVE) (01/05/2024) [facility] Scanned SCANNING Final Resu lt Performing Organization Address City/[facility] Co de Phone Number [facility] ONBASE * COLONOSCOPY GENERIC (SCAN ORDER) (03/29/2018) 03/29/2018 [facility] Scanned SCANNING Final Resu lt from Last 3 Months or Most Recently Relevant to Health Maintenance Insurance MEDICA Member Subscriber Plan / Payer (Ef fective 2023-Present) Name:Timo Palma Relation to Subscriber:Self Name:Timo Palma Payer ID:Not on file Type:Not on file Address: [place] [id number] [place] [phone] Advance Directives * Full Code (Latest Code Status on File) Date Activated Date Inactivated Comments 05/17/2024 4:02 PM 05/17/2024 8:20 PM Care Teams Valve Inserter Relationship Specialty Start Date End Date Shannon Melgar MD [address] [facility] [address] [place] [address] PCP - General INTERNAL MEDICINE 08/01/23 El Cook MD [address] [phone] UNKNOWN PHYSICIAN SPECIALTY 01/15/24
--- OUTSIDE RECORDS SUMMARY | 2024-12-18 14:35 | XMS_ITS | Encounter Summary ---
Author Organization [facility] Address Formerly [facility] [place] [address] Care Team Providers Care Target Developer Name Role Phone Shannon Melgar MD Primary Care Provider [phone] El Cook MD Unavailable Encounter Details Date Type Department Care Team (Latest Contact Info) Description 10/18/2023 Hyper9 Message Enc [facility] Multispecialty Care - [address] [place] [address] Shannon Melgar MD [address] [facility] [address] [place] [address] Atrial fibulation Social History Tobacco Use Types Packs/Day Years [...] Answer Date Recorded Patient Health Questionnaire-2 Score 1 08/01/2023 Sex and Gender Information Value Date Recorded Sex Assigned at Male 05/02/2024 1:46 PM LIFE SPECIALIST Legal Sex Male 2:51 PM LIFE SPECIALIST Gender Identity Male 06/04/2024 4:19 PM LIFE SPECIALIST Sexual Orientation Straight 06/04/2024 4: 19 PM LIFE SPECIALIST documented as of this encounter Plan of Treatment Upcoming Encounters Date Type Department Care Team (Late st Contact Info) Description 03/04/2025 3:00 PM LIFE SPECIALIST [facility] [place] - [address] [place] [address] Shannon Melgar MD Formerly [facility] [address] 04/22/2025 10:30 AM LIFE SPECIALIST Office Visit [facility] [address] [place] [address] Dione Duke PA 3 [facility] [address] [place] [address] 06/04/2025 4:20 PM LIFE SPECIALIST Office Visit [facility] [place] [address] [address] [place] [address] Shannon Melgar MD Formerly [facility] [address] [address] documented as of this encounter Visit Diagnoses Not on filedocumented in this encounter Additional Health Concerns Assessment Noted Time PHQ-9 Depression Total Score: 6 08/01/19 24 4:28 PM CDT documented as of this encounter Care Teams Target Developer Relationship Specialty Start Date End Date Shannon Melgar MD [address] [place] [id number] PCP - General INTERNAL MEDICINE 08/01/23 El Cook MD [address] [phone] UNKNOWN PHYSICIAN SPECIALTY 01/15/24 documented as of this encounter
--- OUTSIDE RECORDS SUMMARY | 2024-12-18 14:35 | XMS_ITS | Clinical Summary ---
Author Organization [facility] Address [address] [place] [address] Care Team Providers Care Wheelman Name Role Phone Shannon Melgar MD Unavailable Unknown, Provider Primary Care Provider Unavaila ble Source Comments [facility],non-owned Affiliates and Associated Physician Practices is amultiple site organization consisting of ambulatory clinics and hospital sitesin [place], [place], [place] and [place]. This disclosure is being madepursuant to the Care Everywhere program and may not contain all information available regarding this patient. Last updated 18.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 > Interpreting Provider: Bairon Matos on 11/27/2024 8:35 PM Narrative 11/27/2024 8:35 PM CDT PROCEDURE: US ELASTOGRAPHY, DATE/TIME OF EXAM: 11/27/2024 3:59 PM, LOCATION [facility] INDICATION: K74.60: Cirrhosis of liver without [...] DATE/TIME OF EXAM: 11/27/2024 3:59 PM, LOCATION [facility] INDICATION: K74.60: Cirrhosis of liver without [...] Ramírez 11/27/2024 4:47 PM > Dictated by Quality Assurance Monitor Chassis I, Bairon Matos have personally reviewed and interpreted this examination/study. > Interpreting Provider: Bairon Matos on 11/27/2024 8:35 PM us Shannon Melgar MD ORDERABLES Final Result from Last 3 Months Insurance [facility] Care Teams Wheelman Relationship Specialty Start Date End Date Shannon Melgar MD [address] [address] PCP - Att[facility] 05/18/24 Unknown, Provider PCP - General 07/09/24
[2024-12-18 15:28] VITALS: BP 137/94; PULSE 106; RESP 17; TEMP 36.7; O2SAT 96
--- NOTE | 2024-12-18 17:20 | ADMGEN ---
This patient, Timo Palma, was admitted to Medical Room 346-01. Patient/family oriented to hospital policies and general routines including ID bracelet, bed and alarms, visiting hours, pain management, procedures, bathroom and other care routines, personal items, smoking policy, room service/diet, and visiting hours. Information on how to activate the Rapid Response Team has been discussed. Patient/Family are encouraged to report perceived risks to care and to ask questions if they do not understand what they are told or what they should do.
[2024-12-18 17:21] VITALS: BMI 28.7
[2024-12-18 20:00] VITALS: PULSE 101
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
[2024-12-18 20:42] VITALS: PULSE 95
[2024-12-18] MEDS: APIXABAN 5 MG TABLET PO (20:42)
[2024-12-18] MEDS: ALPRAZolam (*CRX) 0.125 MG TABLET PO (20:42)
[2024-12-18] MEDS: VENLAFAXINE HCL XR 75 MG CAP.ER.24H PO (20:42)
[2024-12-18] MEDS: ROSUVASTATIN 20 MG TABLET PO (20:42)
[2024-12-18] MEDS: ACETAMINOPHEN 500 MG TABLET 1000 MG PO (20:43)
[2024-12-18 22:00] VITALS: BP 134/83; PULSE 106; RESP 18; TEMP 36.5; O2SAT 100
[2024-12-18] MEDS: LACTATED RINGERS 1,000 ML 100 ML IV CONT (23:14)
[2024-12-19] VITALS (12 sets, daily range): BP systolic 122–143; BP diastolic 65–83; PULSE 67–107; RESP 18; TEMP 35.8–36.3; O2SAT 94–99
--- NOTE | 2024-12-19 | ECHO_ITS ---
Patient Info Name: Timo Palma Age: 69 years : 1955 Gender: Male Ht: 70 in Wt: 200 lbs BSA: 2.14 m2 HR: 91 bpm BP: 122 / 65 mmHg Technical Quality: Good Exam Date: 12/19/2024 10:50 AM Patient Status: I Admit Date: 12/18/2024 Exam Type: CA echo doppler w bubble study Complete two-dimensional, color flow and Doppler transthoracic echocardiogram is performed with agitated saline. Staff Referring Physician: Symone Del Cid Boat Builder And Repairer: Susan Ontiveros Attending Provider: Radha Bazzi Contrast/Agitated Saline Contrast/Ag. Saline: Agitated Saline Amount: 20.00 ml Existing IV Access: Yes IV Access Condition: patent with no signs of infiltration Summary 1. There is normal biventricular size and systolic function. 2. There are no significant valvular abnormalities. 3. Agitated saline study did not reveal any ovcql-kw-[id number] intracardiac shunts. Left Ventricle The left ventricle is normal in size and systolic function. The left ventricular ejection fraction is visually estimated to be 60-65%. Right Ventricle The right ventricle is normal in size and systolic function. Left Atria The left atrium is normal size. Right Atria The right atrium is normal size. Atrial Septum Agitated saline study did not reveal any daqod-sm-[id number] intracardiac shunts. Aortic Valve The aortic valve is not well visualized. There is no aortic stenosis by echo Doppler gradients. Pulmonic Valve The pulmonic valve is not well visualized. Mitral Valve The mitral valve is normal. There is trace mitral regurgitation. Tricuspid Valve The tricuspid valve is normal. There is trace tricuspid regurgitation. Pericardium/Pleural Pericardium is normal in appearance with no evidence for significant pericardial effusion. Inferior Vena Cava Normal inferior vena cava with >50% collapse upon inspiration consistent with normal right atrial pressure, 3 mmHg. Left Ventricular Outflow Tract Name Value Normal LVOT 2D LVOT Diameter 2.0 cm LVOT Doppler LVOT Peak Velocity 148 cm/s LVOT Peak Gradient 9 mmHg LVOT Mean Gradient 5 mmHg LVOT VTI 29 cm LVOT VTI/AV VTI Ratio 0.8 LVOT Stroke Volume 94 ml LVOT CO 8.5 l/min LVOT CI 4.0 l/min/m2 Pulmonic Valve Name Value Normal RVOT Doppler RVOT Peak Velocity 57 cm/s RVOT Peak Gradient 1 mmHg PV Doppler PV Peak Velocity 92 cm/s PV Peak Gradient 3 mmHg Tricuspid Valve Name Value Normal Estimated PAP/RSVP RA Pressure 3 mmHg <=5 Aortic Valve Name Value Normal AV Doppler AV Peak Velocity 204 cm/s AV Peak Gradient 17 mmHg AV Mean Gradient 8 mmHg AV VTI 36 cm AV Area (Cont Eq VTI) 2.6 cm2 >=3.0 AV Area (Cont Eq Willam) 2.3 cm2 AV DI (Willam) 0.73 AV Regurgitation 2D LVOT Area 3.2 cm2 Ventricles Name Value Normal LV Dimensions 2D/MM LVOT Diameter 2.0 cm LV Fractional Shortening/Ejection Fraction 2D/MM LV Diastolic Volume (4C MOD) 93 ml LV EF (4C MOD) 61 % LV Diastolic Volume (2C MOD) 104 ml LV EF (2C MOD) 63 % LV Diastolic Volume (BP MOD) 99 ml 62-150 LV Diastolic Volume Index (BP MOD) 46 ml/m2 34-74 LV Systolic Volume (BP MOD) 37 ml 21-61 LV Systolic Volume Index (BP MOD) 18 ml/m2 11-31 LV EF (BP MOD) 62 % 52-72 LV Diastolic Length (4C) 8.8 cm LV Systolic Length (4C) 7.6 cm LV Stroke Volume (4C MOD) 57 ml Atria Name Value Normal LA Dimensions LA Volume (4C A-L) 33 ml LA Volume (BP A-L) 38 ml RA Dimensions RA Systolic Major Eccles Length (4C) 5.2 cm 2.1-2.7 RA Area (4C) 15.2 cm2 <=18.0 Report Signatures
[2024-12-19 06:12] LABS: Hematocrit 41.9 % (42.0-52.0); Hemoglobin 13.4 g/dL (14.0-18.0); Immature Granulocyte Percent A 0.3 % (0-0.5); Lymphocytes Absolute Auto 2.05 K/mm3 (0.9-3.2); Mean Corpuscular HGB Conc 32.0 g/dl (32-36); Mean Corpuscular Hemoglobin 28.9 pg (26-34); Mean Corpuscular Volume 90.3 fl (80-100); Nucleated Red Blood Cells Absolute Auto 0.000 K/mm3 (0.0-0.012); Nucleated Red Blood Cells Perc 0.0 % (0.0-0.2); Platelet Count Result 133 k/mm3 (150-375); Red Blood Count 4.64 M/mm3 (4.6-6.20); White Blood Count 5.8 K/mm3 (4.5-10.0)
[2024-12-19 06:30] LABS: Alanine Aminotransferase 61 U/L (6-50); Albumin Level 3.7 g/dL (3.5-5.1); Alkaline Phosphatase 130 U/L (38-126); Anion Gap 4 mmol/L (4-12); Aspartate Amino Transferase 42 U/L (17-59); Bilirubin,Total 0.5 mg/dL (0.2-1.3); Blood Urea Nitrogen 21 mg/dL (9-20); Calcium 9.1 mg/dL (8.4-10.2); Carbon Dioxide 25 mmol/L (22-30); Chloride 107 mmol/L (98-107); Estimated CRCL calculation 49 ml/min; Estimated Glomerular Filt Rate 53; Glucose 121 mg/dL (65-110); Potassium 4.1 mmol/L (3.4-5.0); Sodium 136 mmol/L (137-145); Total Protein 6.4 g/dL (6.3-8.2)
--- NOTE | 2024-12-19 07:27 | PM.IMPN ---
Progress Note: A&P Assessment and Plan (1) Altered awareness, transient: Code(s): R40.4 - Transient alteration of awareness Status: Acute Assessment and Plan: Reported 5 episodes of loss of time on Monday, 12/16. No current focal deficits. - Lipid panel 12/12/24: TG 80, cholesterol 128, LDL 52, HDL 47 - TSH and a1c WNL on 12/12/24 - UA nonconcerning for infection - CXR unremarkable - Head CT: No fracture or acute intracranial process. Mild age-related changes and small old lacunar infarct at the right thalamus. - Carotid duplex negative - MRI: Mild scattered periventricular predominant nonspecific white matter T2 hyperintensity which within normal limits for age and likely sequela of chronic small vessel ischemic disease. No acute intracranial process or abnormally enhancing brain lesions. - Possible focal seizure, no known seizure history. EEG ordered. - Echo: unremarkable - Will hold off on initiating triple therapy as he is already on a statin and Eliquis. - Initiate stroke protocol, NIH Stroke Scale, neuro's q.4 hours - Monitor CBC, CMP, magnesium, troponin, and lipid profile - Telemetry monitoring unremarkable. Consider 30 day event monitoring at discharge - Monitor blood glucose - Neurology consulted, appreciate assistance and recommendations (2) Anxiety: Code(s): F41.9 - Anxiety disorder, unspecified Status: Acute Assessment and Plan: - history of anxiety, depression, PTSD - continue home medication(s): Effexor - Xanax p.r.n. (3) Type 2 diabetes mellitus: Qualifiers: Diabetes mellitus complication status: without complication Diabetes mellitus prison insulin use: without prison use Qualified Code(s): E11.9 - Type 2 diabetes mellitus without complications Code(s): E11.9 - Type 2 diabetes mellitus without complications Status: Acute Assessment and Plan: - hypoglycemia protocol - POC blood glucose ACHS - home medication: Hold metformin in case of need for contrast and Mounjaro (NF). - correct regimen ordered - moderate dose TIDWM based off BMI - A1C 7.1% on 12/12/2024 (4) HTN (hypertension): Qualifiers: Hypertension type: primary hypertension Qualified Code(s): I10 - Essential (primary) hypertension Code(s): I10 - Essential (primary) hypertension Status: Acute Assessment and Plan: chronic, continue home medications - Lisinopril 10 mg daily - Carvedilol 6.25 mg BID - blood pressures stable, continue to monitor (5) Von willebrand disease, type 1: Code(s): D68.01 - Von Willebrand disease, type 1 Status: Chronic Assessment and Plan: - patient on Eliquis due to AFib, has been stable on this medication for some time - will avoid placing patient on plavix and ASA at this time, defer initiation of triple therapy for possible stroke/TIA until MRI results and Neurology consultation (6) Atrial fibrillation: Code(s): I48.91 - Unspecified atrial fibrillation Status: Acute Assessment and Plan: - s/p cardiac ablation - EKG: sinus rhythm - Current home medication: carvedilol 6.25 mg BID - Anticoagulation: eliquis 5 mg BID Time Spent With Patient Time with patient: 25 - 35 minutes Subjective Date/time seen: 12/19/24 07:27 Interval history: 69 year old male with PMH of atrial fibrillation s/p cardiac ablation, HLD, hypertension, sleep apnea, kidney stones, anemia, diabetes, anxiety, depression, and PTSD presents here with transient confusion. Patient is pleasant sitting up comfortably in bed and ambulating throughout the room. He remains alert and oriented at time assessment. He has no complaints denying chest pain, shortness a breath, palpitations, nausea/vomiting, abdominal pain. Patient states that he has not had any further episodes of lost time. He denies any tingling/numbness/weakness. Review of Systems Review of Systems: All systems reviewed & are unremarkable except as noted in HPI and below Exam Narrative: AF HR 67 RR 18 SpO2 94 BP 143/78 General: male in no acute respiratory distress who is nontoxic appearing, sitting up in bed and ambulating throughout the room HEENT: Normocephalic. Atraumatic. Extraocular movement intact. Sclera clear and anicteric. No facial asymmetry. Chest: Lungs are clear to auscultation bilaterally. No wheezes or crackles. CV: Heart was regular rate and rhythm. S1/S2. No murmurs, gallops, or rubs. Abd: Abdomen was soft. Nontender. Nondistended. Positive bowel sounds. Ext: No clubbing, cyanosis, or edema. DP pulses bilaterally. Neuro: Patient is alert and oriented x4. Strength is 5/5 in both upper and lower extremities. Cranial nerves 2-12 are intact. Speech is clear. Objective Data Vital Signs Vital Signs: Vital Signs - 24 hr 12/18/24 12:55 12/18/24 15:28 12/18/24 17:41 Temperature 98.1 F Pulse Rate 111 H 106 H Respiratory Rate 17 17 Blood Pressure 136/91 H 137/94 H Pulse Oximetry 98 96 Oxygen Delivery Room Air 12/18/24 20:00 12/18/24 20:00 12/18/24 20:42 Temperature Pulse Rate 101 H 95 Respiratory Rate Blood Pressure Pulse Oximetry Oxygen Delivery Room Air 12/18/24 22:00 12/19/24 00:00 12/19/24 02:11 Temperature 97.7 F Pulse Rate 106 H 94 Respiratory Rate 18 Blood Pressure 134/83 Pulse Oximetry 100 Oxygen Delivery Autopap 12/19/24 02:30 12/19/24 04:00 12/19/24 06:00 Temperature 97.0 F L 97.2 F L Pulse Rate 95 88 92 Respiratory Rate 18 18 Blood Pressure 133/77 122/65 Pulse Oximetry 98 99 Oxygen Delivery Intake/Output Intake/Output: Intake & Output 12/16/24 12/17/24 12/18/24 12/19/24 23:59 23:59 23:59 23:59 Intake Total 240 500 Balance 240 500 Meds/Results Medications: Active Medications Generic Name Dose Route Start Last Admin Trade Name Freq PRN Reason Stop Dose Admin Acetaminophen 1,000 mg 12/18/24 20:01 12/18/24 20:43 Acetaminophen 500 Mg Tablet PO 1,000 mg Q6H PRN Administration Mild Pain (1-3) or Fever Alprazolam 0.125 mg 12/18/24 20:03 12/18/24 20:42 Alprazolam (*Crx) 0.125 Mg Tablet PO 0.125 mg TID PRN Administration Anxiety Apixaban 5 mg 12/18/24 21:00 12/18/24 20:42 Apixaban 5 Mg Tablet PO 5 mg Q12H CARMEN Administration Carvedilol 6.25 mg 12/18/24 21:00 12/18/24 20:42 Carvedilol 6.25 Mg Tablet PO 6.25 mg Q12H CARMEN Administration Dextrose 12.5 gm 12/18/24 20:29 Dextrose 50% 25 Gm/50 Ml Syringe IV PUSH PRN PRN Hypoglycemia Protocol Glucagon 1 mg 12/18/24 20:29 Glucagon For Inj 1 Mg Vial IM PRN PRN Hypoglycemia Protocol Glucose 15 gm 12/18/24 20:29 Glucose Oral Gel 15 Gm Of Glucse In 37.5 Gm Tube PO PRN PRN Hypoglycemia Protocol Dextrose 1,000 mls @ 100 mls/hr 12/18/24 20:29 Dextrose 5% 1,000 Ml IVPB PRN PRN Hypoglycemia Protocol Insulin Aspart 3 - 6 units 12/19/24 08:00 Insulin Aspart (*Bkc) 100 Units/Ml SUB-Q TIDWM [facility] Protocol Lactulose 20 gm 12/18/24 20:02 Lactulose 20 Gm/30 Ml Udc PO HS PRN Constipation Lisinopril 10 mg 12/19/24 09:00 Lisinopril 10 Mg Tablet PO DAILY [facility] Miscellaneous Information 1 each 12/19/24 00:01 Please Send Home Med Magnesium Glycinate To Pharmacy For Verification When Available XX 01/18/25 00:00 CLARIFY [facility] Multivitamins Therapeutic 1 tablet 12/19/24 09:00 Multivitamins Therapeutic Tab (*Bkc) PO DAILY [facility] Non-Formulary Medication 100 mg 12/19/24 09:00 Magnesium Glycinate [Mag Glycinate] PO 01/18/25 08:59 DAILY [facility] Perflutren Lipid Microsphere 0 ml 12/18/24 20:30 Perflutren Lipid Microspheres 1.5 Ml Vial Diluted To 10 Ml Total Volume IV PUSH 12/21/24 20:31 ONCE PRN adequate visualization Protocol Rosuvastatin Calcium 20 mg 12/18/24 21:00 12/18/24 20:42 Rosuvastatin 20 Mg Tablet PO 20 mg HS CARMEN Administration Tramadol HCl 50 mg 12/18/24 20:02 Tramadol Hcl (*Crx) 50 Mg Tablet PO DAILY PRN PAIN RATED 4-6 Venlafaxine HCl 75 mg 12/18/24 20:20 12/18/24 20:42 Venlafaxine Hcl Xr 75 Mg Cap.Er.24h PO 75 mg BID CARMEN Administration Vitamin D 125 mcg 12/19/24 09:00 Cholecalciferol (Vitamin D3) 125 Mcg (5,000 Units) Tablet PO DAILY [facility] Radiology Results: ITS Impressions Head CT 12/18/24 13:15 IMPRESSION: 1. No fracture or acute intracranial process. 2. Mild age-related changes and small old lacunar infarct at the right thalamus. Chest X-Ray 12/18/24 13:30 IMPRESSION: No acute process. Labs Labs: Laboratory Results - last 24 hr 12/18/24 12/18/24 12/18/24 13:51 17:30 20:56 WBC 5.5 RBC 5.15 Hgb 14.7 Hct 45.8 MCV 88.9 MCH 28.5 MCHC 32.1 RDW 14.1 Plt Count 153 MPV 8.7 Immature Gran % (Auto) 0.2 Neut % (Auto) 55.3 Lymph % (Auto) 32.6 [place] % (Auto) 9.5 H Eos % (Auto) 1.5 Baso % (Auto) 0.9 Lymph # (Auto) 1.79 [place] # (Auto) 0.5 Eos # (Auto) 0.1 Baso # (Auto) 0.1 Abs Immat Gran (auto) 0.01 Absolute Neuts (auto) 3.0 Absolute Nucleated RBC 0.000 Nucleated RBC % 0.0 PT 14.0 INR 1.1 APTT 28.1 Sodium 136 L Potassium 4.6 Chloride 105 Carbon Dioxide 24 Anion Gap 7 BUN 26 H Creatinine 1.39 H Estim Creat Clear Calc 47 Estimated GFR 51 L Glucose 229 H POC Capillary Glucose 164 H 150 H Calcium 9.5 Total Bilirubin 0.4 AST 49 ALT 80 H Alkaline Phosphatase 159 H Total Protein 7.6 Albumin 4.4 12/19/24 05:42 WBC 5.8 RBC 4.64 Hgb 13.4 L Hct 41.9 L MCV 90.3 MCH 28.9 MCHC 32.0 RDW 14.0 Plt Count 133 L MPV 8.8 Immature Gran % (Auto) 0.3 Neut % (Auto) 47.9 Lymph % (Auto) 35.3 [place] % (Auto) 12.9 H Eos % (Auto) 2.9 Baso % (Auto) 0.7 Lymph # (Auto) 2.05 [place] # (Auto) 0.8 H Eos # (Auto) 0.2 Baso # (Auto) 0.0 Abs Immat Gran (auto) 0.02 Absolute Neuts (auto) 2.8 Absolute Nucleated RBC 0.000 Nucleated RBC % 0.0 PT INR APTT Sodium 136 L Potassium 4.1 Chloride 107 Carbon Dioxide 25 Anion Gap 4 BUN 21 H Creatinine 1.34 H Estim Creat Clear Calc 49 Estimated GFR 53 L Glucose 121 H POC Capillary Glucose Calcium 9.1 Total Bilirubin 0.5 AST 42 ALT 61 H Alkaline Phosphatase 130 H Total Protein 6.4 Albumin 3.7 Quality VTE Prophylaxis VTE prophylaxis: pharmacologic ordered
[2024-12-19] MEDS: ALPRAZolam (*CRX) 0.125 MG TABLET PO ×2 (08:08→21:24)
[2024-12-19] MEDS: CHOLECALCIFEROL (VITAMIN D3) 125 MCG (5,000 UNITS) TABLET PO (08:08)
[2024-12-19] MEDS: MULTIVITAMINS THERAPEUTIC TAB (*BKC) 1 TABLET PO (08:09)
[2024-12-19] MEDS: VENLAFAXINE HCL XR 75 MG CAP.ER.24H PO ×2 (08:09→17:13)
[2024-12-19] MEDS: APIXABAN 5 MG TABLET PO ×2 (08:09→21:23)
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
[2024-12-19] MEDS: ROSUVASTATIN 20 MG TABLET PO (21:23)
[2024-12-20] VITALS: PULSE 86
[2024-12-20 04:00] VITALS: PULSE 78
[2024-12-20 06:00] VITALS: BP 132/63; PULSE 86; RESP 18; TEMP 36.1; O2SAT 97
[2024-12-20 06:16] LABS: Hematocrit 42.5 % (42.0-52.0); Hemoglobin 13.6 g/dL (14.0-18.0); Immature Platelet Fraction Pct 1.8 % (0.9-11.2); Mean Corpuscular HGB Conc 32.0 g/dl (32-36); Mean Corpuscular Hemoglobin 28.6 pg (26-34); Mean Corpuscular Volume 89.5 fl (80-100); Platelet Count Result 150 k/mm3 (150-375); Red Blood Count 4.75 M/mm3 (4.6-6.20); White Blood Count 6.1 K/mm3 (4.5-10.0)
[2024-12-20 06:38] LABS: Alanine Aminotransferase 57 U/L (6-50); Albumin Level 3.7 g/dL (3.5-5.1); Alkaline Phosphatase 131 U/L (38-126); Anion Gap 5 mmol/L (4-12); Aspartate Amino Transferase 42 U/L (17-59); Bilirubin,Total 0.4 mg/dL (0.2-1.3); Blood Urea Nitrogen 22 mg/dL (9-20); Calcium 9.5 mg/dL (8.4-10.2); Carbon Dioxide 27 mmol/L (22-30); Chloride 106 mmol/L (98-107); Estimated CRCL calculation 48 ml/min; Estimated Glomerular Filt Rate 52; Glucose 113 mg/dL (65-110); Potassium 4.4 mmol/L (3.4-5.0); Sodium 138 mmol/L (137-145); Total Protein 6.5 g/dL (6.3-8.2)
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
[2024-12-20] MEDS: VENLAFAXINE HCL XR 75 MG CAP.ER.24H PO (08:48)
[2024-12-20 08:49] VITALS: PULSE 108
[2024-12-20] MEDS: APIXABAN 5 MG TABLET PO (08:49)
[2024-12-20 08:50] VITALS: PULSE 75; O2SAT 97
[2024-12-20] MEDS: CHOLECALCIFEROL (VITAMIN D3) 125 MCG (5,000 UNITS) TABLET PO (08:50)
[2024-12-20] MEDS: MULTIVITAMINS THERAPEUTIC TAB (*BKC) 1 TABLET PO (08:50)
[2024-12-20 14:00] VITALS: BP 116/78; PULSE 87; RESP 16; TEMP 36.8; O2SAT 98
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
== END 2024-12-20 16:20 | disposition home or self-care (01) ==
LOC: ANHED 13:24 → ANH3MEDSUR 16:55 → ANH3MED 17:01 → ANH3MEDSUR 12-23 07:22
PROVIDERS: Student in an Organized Health Care Education/Training Program; Admitting Provider General Practice; Emergency Provider Physician Assistant; PCP Internal Medicine; Visit Provider Internal Medicine
DX: R40.4 Transient alteration of awareness (principal); V48.5XXA Car driver injured in noncollision transport accident in traffic accident, initial encounter; W22.10XA Striking against or struck by unspecified automobile airbag, initial encounter; E11.9 Type 2 diabetes mellitus without complications; E78.5 Hyperlipidemia, unspecified; I10 Essential (primary) hypertension; Z86.73 Personal history of transient ischemic attack (TIA), and cerebral infarction without residual deficits; I48.91 Unspecified atrial fibrillation; F41.8 Other specified anxiety disorders; Z87.442 Personal history of urinary calculi; D68.01 Von Willebrand disease, type 1; F43.12 Post-traumatic stress disorder, chronic; Z79.84 Long term (current) use of oral hypoglycemic drugs; Z79.01 Long term (current) use of anticoagulants; G47.30 Sleep apnea, unspecified; Z79.899 Other long term (current) drug therapy
CPT/HCPCS: 36415; 70450; 70553; 71046; 80053; 82948; 85025; 85027; 85055; 85610; 85730; 93005; 93306; 93880; 94002; 95816; 96360; 96361; 96375; 99285; A9270; A9577; G0378; J7120

== ENCOUNTER 2024-12-25 06:51 | Outpatient (CLI) | payer OTHER, SELFPAY ==
--- OUTSIDE RECORDS SUMMARY | 2024-12-25 13:48 | XMS_ITS | Clinical Summary ---
Author Organization [facility] Address [address] [place] [address] Care Team Providers Care Psychiatric Assistant Name Role Phone Shannon Melgar MD Unavailable Unknown, Provider Primary Care Provider Unavaila ble Source Comments [facility],non-owned Affiliates and Associated Physician Practices is amultiple site organization consisting of ambulatory clinics and hospital sitesin [place], [place], [place] and [place]. This disclosure is being madepursuant to the Care Everywhere program and may not contain all information available regarding this patient. 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 > Interpreting Provider: Bairon Matos on 11/27/2024 8:35 PM Narrative 11/27/2024 8:35 PM CDT PROCEDURE: US ELASTOGRAPHY, DATE/TIME OF EXAM: 11/27/2024 3:59 PM, LOCATION [facility] INDICATION: K74.60: Cirrhosis of liver without ascites, [...] DATE/TIME OF EXAM: 11/27/2024 3:59 PM, LOCATION [facility] INDICATION: K74.60: Cirrhosis of liver without ascites, [...] Ramírez 11/27/2024 4:47 PM > Dictated by Pulley Maintainer I, Bairon Matos have personally reviewed and interpreted this examination/study. > Interpreting Provider: Bairon Matos on 11/27/2024 8:35 PM us Shannon Melgar MD ORDERABLES Final Result from Last 3 Months Insurance [facility] Care Teams Psychiatric Assistant Relationship Specialty Start Date End Date Shannon Melgar MD [address] [address] PCP - Attributed-[facility] 05/18/24 Unknown, Provider PCP - General 07/09/24
--- NOTE | 2025-01-08 12:04 | WPDHOLTEREM ---
Holter/Event Monitor Holter/Event Monitor Date of procedure: 12/25/24 Holter/Event Procedure: 3-7 Day Holter Monitor Indications: Transient alteration of awareness Conclusion: 1. 7 days holter monitor on 12/25/24. 2. Underlying rhythm is sinus rhythm. HR range 65-156 bpm; average HR 94 bpm. HR at 156 bpm was on 12/30/24 at 5:28 pm. 3. There are rare premature supraventricular complexes and rare supraventricular couplets. No supraventricular tachycardia. 4. There are rare premature ventricular complexes, rare ventricular couplets, and rare ventricular triplets, longest ventricular bigeminy was 4 seconds, and longest ventricular trigeminy was 8 seconds. No ventricular tachycardia. 5. No significant pauses greater than 3 seconds. 6. Patient reports 3 episodes of symptoms of lightheadedness which demonstrate sinus rhythm, HR range 99-116 bpm with 1 episode with PAC and PVC and 2 episodes with PVC's.
--- OUTSIDE RECORDS SUMMARY | 2025-04-25 06:54 | XMS_ITS | Clinical Summary ---
Author Organization [facility] Address [address] [place] [address] Care Team Providers Care Terminal Superintendent Name Role Phone El Cook MD Unavailable Luh Santoyo DO Primary Care Provider [phone] Shaw Martinez MD Unavailable [phone] Allergies Active Allergy Reactions Criticality Noted Date [...] days. 12 capsule 3 12/04/19 25 Active lisinopril (PRINIVIL) 5 MG tabletIndication [...] daily. 90 tablet 2 02/04/20 25 Active lisinopril (PRINIVIL) 2.5 MG tabletIndication s:Primary hypertension Take 1 tablet (2.5 mg total) by mouth daily. 30 tablet 2 03/17/20 25 Active traMADol (ULTRAM) 50 MG tabletIndication s:Chronic Pain Take 1 tablet (50 mg total) by mouth daily as needed for Pain. Indications: Chronic Pain 30 tablet 04/23/19 26 Active traMADol (ULTRAM) 50 MG tabletIndication s:Chronic Pain Take 1 tablet (50 mg total) by mouth daily as needed for Pain. Indications: Chronic Pain 30 tablet 01/04/20 25 026 Discontinu ed(Reorder ) hydrOXYzine (ATARAX) 10 MG tabletIndication s:Anxiety Take 1 tablet (10 mg total) by mouth 3 (three) times daily as needed for Anxiety. 30 tablet 03/17/20 25 025 Active Problems Problem Noted Date Diagnosed Date [...] Encounters Date Type Department Care Team Description 04/23/2025 3:20 PM CALCIMINER Office Visit [facility] Family & Internal [address] [address] Luh Santoyo, DO Follow Up (Patient is here for a 1 month follow up.); Anxiety (Patient states new dosage is working well and it does not cause him to sleep like the last dosage.); Hypertension 04/23/2025 Travel 04/01/2025 Telephone [facility] [address] [address] Timo Hanna MD Surgical Clearance 03/17/2025 8:00 AM CALCIMINER Office Visit [facility] Family & Internal Medicine [address] [address] Luh Santoyo, DO Follow Up (Patient is here for a 1 month follow up.); Anxiety (Patient reports that he has been doing better. Patient states that the medication makes him very sleepy so only takes it very PRN. States he would be open to discussing other medications that don't knock him out.) 03/17/2025 Travel 03/10/2025 MyChart Message Enc [facility] Orthopedic & Sports Medicine [facility] [address] [place] [address] Trista [facility] Provider surgical scheduling 03/06/2025 Scan [facility] INFO SRVCS Scanned, Doc Med Group 03/04/2025 Telephone [facility] Orthopedic Sports [facility] [address] [place] [address] Nehemiah Almonte MD Schedule Surgery 02/28/2025 Scan [facility] HEALTH INFO SRVCS Scanned, Doc Med Group Lab (SCAN) 02/20/2025 Scan [facility] HEALTH INFO SRVCS Scanned, Doc Med Group 02/17/2025 MyChart Message Enc [facility] Orthopedic Sports [facility] [address] [place] [address] Trista, [facility] Provider MRI results 02/14/2025 Scan [facility] HEALTH INFO SRVCS Scanned, Doc Med Group EGD (SCAN); Colonoscopy Report (SCAN) 02/13/2025 Scan [facility] HEALTH INFO SRVCS Scanned, Doc Med Group 02/11/2025 9:00 AM CDT Office Visit [facility] Family & Internal [address] [address] Luh Santoyo, DO Anxiety (Pt is here today discuss PTSD symptoms and getting Xanax prescribed for when he has a PTSD episode. ) 02/11/2025 Travel 02/04/2025 Scan [facility] HEALTH INFO SRVCS Scanned, Doc Med Group 02/03/2025 7:00 AM CDT Office Visit [facility] Family Internal [address] [address] Luh Santoyo, DO New Patient (Pt is here today establish care. No questions/concerns. ) 02/03/2025 Telephone [facility] Family & Internal Medicine - [place] [address] [place] [address] Luh Santoyo, Medication Request 02/03/2025 Travel 01/29/2025 Telephone [facility], [address] [place] [address] Timo Hanna MD Surgical Clearance 01/28/2025 Scan HEALTH INFO SRVCS Scanned, Doc Med Group MRI (SCAN) from Last 3 Months Immunizations Immunization Administration Dates Next Due Arexvy Respiratory Syncytial Virus (RSV, adjuvanted) 0.5 mL, PF 02/08/2024 Fluzone High Dose (IIV, trivalent, 0.5mL) 2024 Influenza Peds (Generic) 01/25/2024 MODERNA COVID-19 BIVALENT (6 -11), MRNA, LNP-S, PF 02/08/2024 Pneumococcal (Pneumovax 23) 06/02/2021 Pneumococcal (Prevnar 20) 06/04/2024 Tdap (Generic) 01/06/2025,12/24/2018,06/15/2008 Zoster (Zostavax) [address] Unt/0.65Ml 04/18/2017 Family History Medical History Relation [...] Never Smokeless Tobacco: Never Tobacco Cessation:Counseling Given: No Comments:Counseled by Dr. Melgar. Alcohol Use Standard [...] Sex Assigned at Male 05/02/2024 1:46 PM CALCIMINER Legal Sex Male 2:51 PM CALCIMINER Gender Identity Male 06/04/2024 4:19 PM CALCIMINER Sexual Orientation Straight 06/04/2024 4: 19 PM CALCIMINER Last Filed Vital Signs Vital Sign Reading Time Taken Comments Blood Pressure 124/72 04/23/2025 3:23 PM CALCIMINER Pulse 87 04/23/2025 3:23 PM CALCIMINER Temperature 36.8 C (98.2 F) 04/23/2025 3:23 PM CALCIMINER Respiratory Rate 16 02/11/2025 9:07 AM CDT Oxygen Saturation 99% 04/23/2025 3:23 PM CALCIMINER Inhaled Oxygen Concentration - - Weight 86.8 kg (191 lb 4.8 oz) 04/23/2025 3:23 P M CALCIMINER Height 177.8 cm (5' 10) 04/23/2025 3:23 PM CALCIMINER Body Mass Index 27.45 04/23/2025 3:23 PM CALCIMINER Plan of Treatment Upcoming Encounters Date Type Department Care Team (Late st Contact Info) Description 05/12/2025 2:30 PM CALCIMINER Office Visit [facility] [address] [place] [address] [address] [place] [address] Timo Hanna MD [facility], [address] [place], [place] [address] 05/15/2025 11:00 AM CALCIMINER Office Visit [facility] Medical Group Orthopedic & Sports Medicine - [place] [address] [place] [address] Nehemiah Almonte MD [address] [address] [place] [address] 05/22/2025 2:15 PM CALCIMINER Office Visit [facility] THREE [facility], [address] [place] [address] Dione Duke PA 3 [facility] [address] [place] [address] 05/30/2025 9:00 AM CALCIMINER Allied Health/Nurse Visit [facility] Medical [facility] Orthopedic & Sports Medicine - [place] [address] [place] [address] Nehemiah Almonte MD [address] [address] [place] [address] 08/04/2025 3:00 PM CDT Office Visit [facility] Medical [facility] Family & Internal Medicine [address] [address] Luh Santoyo DO 3 [facility]. [address] [place] [address] Health Maintenance Due Date Last Done Comments Hepatitis A Vaccines (1 of 2 - Risk 2-dose series) 12/14/1975 Zoster Vaccines (2 of 3) 06/13/2017 04/18/2017 ASCVD LDL 01/30/2025 01/31/2024 Lipid Panel 01/30/2025 01/31/2024, 11/15, 02/07/2017 PHQ-2 (Physician [facility]) 04/17/2025 02/11/2025 Kidney Health Evaluation 06/04/2025 06/04/2024 Hemoglobin A1C 08/04/2025 02/03/2025, 0811/2024, 01/31/2024, Additional history exists COVID-19 Vaccine ( season) 2026 02/08/2024 Postponed from 12/16/2024 (Patient Refused) Diabetes: Retinopathy Eye Exam 2026 2024, 01/05/2024, 01/05/2024 DTaP, Tdap and Td Vaccines (4 - Td or Tdap) 01/06/2035 01/06/2025, 12/24/2018, 06/15/2008 Colorectal Cancer Screening Colonoscopy (10 Years) 02/14/2035 02/14/2025, 02/14/2025, 03/29/2018, Additional history exists Hepatitis C Completed 01/31/2024 RSV Immunization or 60+ Years Completed 02/08/2024 Pneumococcal Vaccine: 50+ Years Completed 06/04/2024, 06/02/2021 Influenza Adult Completed 02/03/2025, 01/25/2024 Meningococcal B Vaccine Aged Out No l onger eligible based on patient's age to complete this topic Meningococcal Vaccine Aged Out No ehsan krista eligible based on patient's age to complete this topic RSV Immunizations Under 20 Months Aged Out No longer eligible based on patient's age to complete this topic Procedures Procedure Name Priority Date/Time Associated Diagnosis Comments OUTSIDE PT/INR (SCAN ORDER) 02/28/2025 OUTSIDE LAB (SCAN ORDER) 02/28/2025 OUTSIDE LAB (SCAN ORDER) 02/28/2025 OUTSIDE LAB (SCAN ORDER) 02/28/2025 OUTSIDE LAB (SCAN ORDER) 02/28/2025 OUTSIDE LAB (SCAN ORDER) 02/28/2025 OUTSIDE LAB (SCAN ORDER) 02/28/2025 COLONOSCOPY GENERIC (SCAN ORDER) 02/14/2025 COLONOSCOPY GENERIC (SCAN ORDER) 02/14/2025 EGD GENERIC (SCAN ORDER) 02/14/2025 COLLECT.CAPILLARY (FNGR,HEEL,EAR) Routine 02/03/2025 7:14 AM CDT Type 2 diabetes mellitus with hyperglycemia, without long-term current use of insulin ([facility]/HCC) HEMOGLOBIN, GLYCOSYLATED Routine 02/03/2025 Type 2 diabetes mellitus with hyperglycemia, without long-term current use of insulin ([facility]CC HHS/HCC) MRI GENERIC 01/28/2025 MRI SHOULDER LT WO CON LENKA 01/28/2025 12:00 AM CDT Injury of tendon of long head of biceps, left, initial encounter DIABETIC RETINOPATHY EXAM (NEGATIVE)(SCAN ORDER) Routine 2024 HEPATITIS C ANTIBODY Routine 01/31/2024 4:00 PM CDT General medical exam Drug therapy LIPID PANEL Routine 01/31/2024 4:00 PM CDT General medical exam Drug therapy from Last 3 Months or Most Recently Relevant to Health Maintenance Results * OUTSIDE PT/INR (SCAN ORDER) (02/28/2025) 02/28/2025 [facility] Scanned SCANNING Final Resu lt * OUTSIDE LAB (SCAN ORDER) (02/28/2025) Only the most recent of6 resultswithin the time period is included. 02/28/2025 [facility] Scanned SCANNING Final Resu lt * EGD GENERIC (SCAN ORDER) (02/14/2025) 02/14/2025 Result [facility] Scanned SCANNING Final Resu lt * COLONOSCOPY GENERIC (SCAN ORDER) (02/14/2025) 02/14/2025 Result [facility] Scanned SCANNING Final Resu lt * COLONOSCOPY GENERIC (SCAN ORDER) (02/14/2025) 02/14/2025 Result [facility] Scanned SCANNING Final Resu lt * HEMOGLOBIN, GLYCOSYLATED (02/03/2025) HGB A1C 6.6 % [facility] 02/03/2025 Result [facility] Luh Santoyo DO LABORATORY Final Result [facility] [address] [place] [address], [place] * MRI SHOULDER LT WO CON (01/28/2025 12:00 AM CDT) Anatomical Region Laterality Modality Shoulder Magnetic Resonan ce 01/28/2025 Nehemiah Almonte MD MRI Final Result * MRI GENERIC (01/28/2025) Anatomical Region Laterality Modality Other 01/28/2025 Result [facility] Group Scanned SCANNING Final Resu lt * DIABETIC RETINOPATHY EXAM (NEGATIVE) (2024) Result [facility] Scanned SCANNING Final Resu lt [facility] * (ABNORMAL) LIPID PANEL (01/31/2024 4:00 PM CDT) CHOLESTEROL 117 <200 MG/DL 02/01/2024 3:52 PM CDT -[facility] TRIGLYCERIDES 164(H) <150 MG/DL 02/01/2024 3:52 PM CDT [facility] HDL 46 >40 MG/DL 02/01/2024 3:52 PM CDT [facility] LDL-C 38 <100 MG/DL 02/01/2024 3:52 PM CDT [facility] VLDL CALCULATION 33(H) 5 - 28 MG/DL 02/01/2024 3:52 PM CDT [facility] CHOL/HDL RATIO 2.5 0.0 - 4.0 02/01/2024 3:52 PM CDT [facility] LDL/HDL 0.8 0.41 - 2.13 02/01/2024 3:52 PM CDT [facility] NON HDL CHOLESTEROL 71 <140 MG/DL 02/01/2024 3:52 PM CDT [facility] 01/31/2024 4:00 PM CDT Shannon Melgar MD LABORATORY Final Result Performing Organization Address City/[facility]/ZIP Co de Phone Number -ALEXANDER JAMES MERSHON [address] [facility] [place] [address], [place] [phone] * HEPATITIS C ANTIBODY (01/31/2024 4:00 PM CDT) HEPATITIS C AB NON-REACTI VE NON-REACT MIGUEL A 02/01/2024 6:48 PM CDT [facility] Comment: ANTIBODIES TO HCV NOT DETECTED. DOES NOT EXCLUDE THE POSSIBILITY OF EXPOSURE TO HCV. 01/31/2024 4:00 PM CDT Shannon Melgar MD LABORATORY Final Result Performing Organization Address [facility] Co de Phone Number [facility] [address] [place] [address], [place] [phone] [id number] from Last 3 Months or Most Recently Relevant to Health Maintenance Insurance MEDIC MEDICARE PART A Advance Directives * Full Code (Latest Code Status on File) Date Activated Date Inactivated Comments 05/17/2024 4:02 PM 05/17/2024 8:20 PM Care Teams Terminal Superintendent Relationship Specialty Start Date End Date Luh Santoyo DO [facility] [place] [address] PCP - General FAMILY PRACTICE 02/03/25 El Cook MD [address] [phone] UNKNOWN PHYSICIAN SPECIALTY 01/15/24 Shaw Martinez MD [address] [address] Consulting Physician CLINICAL CARDIAC ELECTROPHYSIOLOGY 03/31/25
--- OUTSIDE RECORDS SUMMARY | 2025-04-25 06:54 | XMS_ITS | Encounter Summary ---
Author Organization [facility] Address [facility] [place] [address] Care Team Providers Care Phlebotomist Lab Assistant Name Role Phone El Cook MD Unavailable Luh Santoyo DO Primary Care Provider [phone] Shaw Martinez MD Unavailable [phone] Encounter Details Date Type Department Care Team (Late st Contact Info) Description 02/17/2025 [employer] Message Enc [facility] Medical Group Orthopedic & Sports Medicine - [address] [address] Trista, [facility] Provider MRI results Social History Tobacco Use Types Packs/Day [...] Sex Assigned at Male 05/02/2024 1:46 PM PROCESS SPECIALIST Legal Sex Male 2:51 PM PROCESS SPECIALIST Gender Identity Male 06/04/2024 4:19 PM PROCESS SPECIALIST Sexual Orientation Straight 06/04/2024 4: 19 PM PROCESS SPECIALIST documented as of this encounter Plan of Treatment Upcoming Encounters Date Type Department Care Team (Late st Contact Info) Description 05/12/2025 2:30 PM PROCESS SPECIALIST Office Visit [facility] [address] [place] [address] Timo Hanna MD Three [facility] [address] [place] [address] 05/15/2025 11:00 AM PROCESS SPECIALIST Office Visit [facility] Orthopedic & Sports Medicine - [place] [address] [place] [address] Nehemiah Almonte MD [address] [facility] [address] [place], [place] [address] 290- 05/22/2025 2:15 PM PROCESS SPECIALIST Office Visit [facility] THREE [facility] [address] [place] [address] Dione Duke PA 3 [facility] [address] [place] [address] 05/30/2025 9:00 AM PROCESS SPECIALIST Allied Health/Nurse Visit [facility] Orthopedic & Sports Medicine [facility] [address] [place] [address] Nehemiah Almonte MD [address] [place] [address] [place] [address] 08/04/2025 3:00 PM CDT Office Visit [facility] Medical Group Family & Internal Medicine [place] [address] [place] [address] Luh Santoyo DO 3 [facility]. [address] [place] [address] documented as of this encounter Visit Diagnoses Not on filedocumented in this encounter Additional Health Concerns Assessment Noted Time PHQ-9 Depression Total Score: 2 02/12/20 9:05 AM CDT documented as of this encounter Care Teams Phlebotomist Lab Assistant Relationship Specialty Start Date End Date Luh Santoyo DO [facility] [place] [address] PCP - General FAMILY PRACTICE 02/03/25 El Cook MD [address] [phone] UNKNOWN PHYSICIAN SPECIALTY 01/15/24 Shaw [facility] [address] [place] [address] Consulting Physician CLINICAL CARDIAC ELECTROPHYSIOLOGY 03/31/25 documented as of this encounter
--- OUTSIDE RECORDS SUMMARY | 2025-04-25 06:54 | XMS_ITS | Encounter Summary ---
Author Organization [facility] Address [facility] [place] [address] Care Team Providers Care Interventional Radiology Tech Name Role Phone Shannon Melgar MD Primary Care Provider [phone] El Cook MD Unavailable Luh Santoyo DO Primary Care Provider [phone] Shaw Martinez MD Unavailable [phone] Encounter Details Date Type Department Care Team (Latest Contact Info) Description 10/18/2023 MyChart Message Enc [facility] Medical Group Multispecialty Care - [place] [address] [place] [address] [address] [place] [address] Shannon Melgar MD 1188 [facility] 157 [place] [address] Atrial fibulation Social History Tobacco [...] Sex Assigned at Male 05/02/2024 1:46 PM CUSTODIAN Legal Sex Male 2:51 PM CUSTODIAN Gender Identity Male 06/04/2024 4:19 PM CUSTODIAN Sexual Orientation Straight 06/04/2024 4: 19 PM CUSTODIAN documented as of this encounter Plan of Treatment Upcoming Encounters Date Type Department Care Team (Late st Contact Info) Description 05/12/2025 2:30 PM CUSTODIAN Office Visit [place] [facility] [address] [place] [address] Timo Hanna MD Three [facility], [address] [place] [address] 05/15/2025 11:00 AM CUSTODIAN Office Visit [facility] Sports Medicine - [place] [address] [place] [address] Nehemiah Almonte MD [address] [place] [address] 05/22/2025 2:15 PM CUSTODIAN Office Visit [facility] THREE [facility] [place] [address] [place] [address] Dione Duke PA 3 [facility] [address] [place] [address] 05/30/2025 9:00 AM CUSTODIAN Allied Health/Nurse Visit [facility] Medicine - [place] [address] [place], [place] [address] 100- [phone] Nehemiah Almonte MD [address] [place] [address] 08/04/2025 3:00 PM CDT Office Visit [facility] Medical Group Family & Internal Medicine - [address] [address] Luh Santoyo DO 3 [facility]. [facility] [address] [place] [address] documented as of this encounter Visit Diagnoses Not on filedocumented in this encounter Additional Health Concerns Assessment Noted Time PHQ-9 Depression Total Score: 6 08/01/19 24 4:28 PM CDT documented as of this encounter Care Teams Interventional Radiology Tech Relationship Specialty Start Date End Date Shannon Melgar MD [address] [address] PCP - General INTERNAL MEDICINE 08/01/23 02/02/25 Luh Santoyo DO [address] [place] [address] PCP - General FAMILY PRACTICE 02/03/25 El Cook MD [address] [facility] 2 [place] [address] UNKNOWN PHYSICIAN SPECIALTY 01/15/24 Shaw Martinez MD Three [facility]. [facility] [address] [place] [address] Consulting Physician CLINICAL CARDIAC ELECTROPHYSIOLOGY 03/31/25 documented as of this encounter
--- OUTSIDE RECORDS SUMMARY | 2025-04-25 06:54 | XMS_ITS | Clinical Summary ---
Author Organization [facility] Address [address] [place] [address] Phone Care Team Providers Care Law Clerk Name Role Phone Unavailable Primary Care Provider Unavailabl e Encounters Date Type Department Care Team Description 04/22/2025 External Device Data [facility] [place] Provider, Abstract 04/08/2025 External Device Data [facility] Provider, Abstract 02/12/2025 External Device Data [place] Provider, Abstract 02/12/2025 External Device Data [place] Provider, Abstract from Last 3 Months Social History Tobacco [...] VACCINE 50+ YEARS Completed 06/04/2024 , 06/02/2021 Insurance [facility] [id number] OUT OF NETWORK [place] [id number]
--- OUTSIDE RECORDS SUMMARY | 2025-04-25 06:54 | XMS_ITS | Encounter Summary ---
Author Organization [facility] Address [facility]ly [facility], [facility] [place] [address] Care Team Providers Care Pharmacy Informatics Specialist Name Role Phone Shannon Melgar MD Primary Care Provider [phone] El Cook MD Unavailable Luh Santoyo DO Primary Care Provider [phone] Shaw Martinez MD Unavailable [phone] Encounter Details Date Type Department Care Team (Late st Contact Info) Description 06/21/2024 R&V Message Enc [facility] Medical Group Multispecialty Care - [address] [place] [address] Kylin Networktrisha, [facility] Provider lab results Social History [...] Sex Assigned at Male 05/02/2024 1:46 PM REGULATORY ASSOCIATE Legal Sex Male 2:51 PM REGULATORY ASSOCIATE Gender Identity Male 06/04/2024 4:19 PM REGULATORY ASSOCIATE Sexual Orientation Straight 06/04/2024 4: 19 PM REGULATORY ASSOCIATE documented as of this encounter Plan of Treatment Upcoming Encounters Date Type Department Care Team (Late st Contact Info) Description 05/12/2025 2:30 PM REGULATORY ASSOCIATE Office Visit [facility] [address] [place] [address] Timo Hanna MD Three [facility] [address] [place] [address] 05/15/2025 11:00 AM REGULATORY ASSOCIATE Office Visit [facility] Orthopedic & Sports Medicine - [place] [address] [place] [address] Nehemiah Almonte MD [address] [address] 05/22/2025 2:15 PM REGULATORY ASSOCIATE Office Visit [facility] THREE [facility], [address] [place] [address] Dione Duke PA 3 [facility] [address] [place] [address] 05/30/2025 9:00 AM REGULATORY ASSOCIATE Allied Health/Nurse Visit [facility] Orthopedic & Sports Medicine [facility] [address] [place] [address] Nehemiah Almonte MD [address] [place] [address] 08/04/2025 3:00 PM CDT Office Visit [facility] Medical [facility] Family & Internal Medicine [address] [address] Luh Santoyo DO 3 [facility]. [address] [place] [address] documented as of this encounter Visit Diagnoses Not on filedocumented in this encounter Additional Health Concerns Assessment Noted Time PHQ-9 Depression Total Score: 2 06/04/19 25 5:17 PM REGULATORY ASSOCIATE documented as of this encounter Care Teams Pharmacy Informatics Specialist Relationship Specialty Start Date End Date Shannon Melgar MD [address] [address] PCP - General INTERNAL MEDICINE 08/01/23 02/02/25 Luh Santoyo DO 2401 [place] [address] PCP - General FAMILY PRACTICE 02/03/25 El Cook MD [address] [address] UNKNOWN PHYSICIAN SPECIALTY 01/15/24 Shaw Martinez MD Three [facility]. [facility] 2800 [place] [address] Consulting Physician CLINICAL CARDIAC ELECTROPHYSIOLOGY 03/31/25 documented as of this encounter
--- OUTSIDE RECORDS SUMMARY | 2025-04-25 06:54 | XMS_ITS | Clinical Summary ---
Author Organization [facility] Address [address], [facility] 1 [place] [address] Phone Care Team Providers Care Glaze Carrier Name Role Phone Luh Santoyo Radha BURDICK Primary Care Provider [phone] López Lind MD Unavailable [phone] Allergies Active Allergy Reactions Criticality Noted Date [...] by mouth daily. Active ergocalciferol (VITAMIN D) 63431 UNIT Capsule Take 1.25 mg by mouth [...] Encounters Date Type Department Care Team Description 03/20/2025 2:00 PM INDUSTRIAL SALES REPRESENTATIVE Office Visit [facility] [address] [address] Mercy Jones APRN, COFFEE SAMPLER Easy bruising (Primary Dx) 03/20/2025 Travel 02/27/2025 2:45 PM INDUSTRIAL SALES REPRESENTATIVE Lab [facility] [address] [address] Lab, [facility] Von Willebrand disease 02/27/2025 2:30 PM INDUSTRIAL SALES REPRESENTATIVE Office Visit [facility] [address] [address] López Lind MD Von Willebrand disease (Primary [...] Sign Reading Time Taken Comments Blood Pressure 126/70 03/20/2025 2:21 PM INDUSTRIAL SALES REPRESENTATIVE Pulse 109 03/20/2025 2:21 PM INDUSTRIAL SALES REPRESENTATIVE Temperature 36.7 C (98.1 F) 03/20/2025 2:21 PM INDUSTRIAL SALES REPRESENTATIVE Respiratory Rate 18 03/20/2025 2:21 PM INDUSTRIAL SALES REPRESENTATIVE Oxygen Saturation 99% 03/20/2025 2:21 PM INDUSTRIAL SALES REPRESENTATIVE Inhaled Oxygen Concentration - - Weight 87 kg (191 lb 11.2 oz) 03/20/2025 2:21 PM INDUSTRIAL SALES REPRESENTATIVE Height 177.8 cm (5' 10) 03/20/2025 2:21 PM INDUSTRIAL SALES REPRESENTATIVE Body Mass Index 27.51 03/20/2025 2:21 PM INDUSTRIAL SALES REPRESENTATIVE Plan of Treatment Upcoming Encounters Date Type Department Care Team (Late st Contact Info) Description 09/18/2025 2:00 PM CDT Lab [facility] [address] [phone] Lab, Cc [facility] 09/18/2025 2:15 PM CDT Office Visit [facility] [address] [address] López Lind MD [facility] [address] [place] [address] [place] [address] Health Maintenance Due Date Last Done Comments Cologuard 2001 Colonoscopy 2001 Colorectal Cancer Screening 2001 Immunochemical Fecal Occult Blood 2001 PSA Discussion 12/14/2011 Zoster Immunization (2 of 3) 06/13/2017 04/18/2017 SARS-COV-2 Immunization ( - season) 2024 02/08/2024 Hepatitis C Virus (HCV) Screening Completed 01/31/2024 Respiratory Syncytial Virus (RSV) Immunization (Adult) Completed 02/08/2024 Pneumococcal Immunization (5 0+ years) Completed 06/04/2024, 06/02/2021 TdaP Immunization Completed 01/06/2025, 12/24/2018, 06/15/2008 Influenza Immunization Completed 5, 01/25/2024 Hepatitis B Immunization Aged Out No longer eligible based on patient's age to complete this topic Human Papillomavirus (HPV) Immunization (No Doses Required) Completed Meningococcal Immunization (ACWY) Aged Out No longer eligible b ased on patient's age to complete this topic Rotavirus Immunization Aged Out No lo nger eligible based on patient's age to complete this topic Procedures Procedure Name Priority Date/Time Associated Diagnosis Comments COMPLETE BLOOD COUNT (CBC) WITH DIFF Routine 02/27/2025 3:48 PM INDUSTRIAL SALES REPRESENTATIVE Von Willebrand disease APTT (PTT) Routine 02/27/2025 3:48 PM INDUSTRIAL SALES REPRESENTATIVE Von Willebrand disease LACTATE DEHYDROGENASE (LD) Routine 02/27/2025 3:48 PM INDUSTRIAL SALES REPRESENTATIVE [place]brand [place] [id number] Routine 02/27/2025 3:48 PM INDUSTRIAL SALES REPRESENTATIVE Von Willebrand disease from Last 3 Months Results * (ABNORMAL) [place] [id number] (02/27/2025 3:48 PM INDUSTRIAL SALES REPRESENTATIVE) FACTOR VIII ACTIVITY 144(H) 56 - 140 % CANCER TELEPHONE ANSWERING SERVICE OPERATOR [facility] VON WILLEBRAND FACTOR (VWF) AG 53 50 - 200 % CANCER TELEPHONE ANSWERING SERVICE OPERATOR [facility] VWF ACTIVITY 57 50 - 200 % CANCER TELEPHONE ANSWERING SERVICE OPERATOR [facility] INTERPRETATION NOTE [facility] Comment: COAGULATION: VON WILLEBRAND FACTOR ASSESSMENT CURRENT RESULTS ASSESSMENT THE VWF:AG IS NORMAL. THE VWF:ACTIVITY IS NORMAL. THE FVIII IS ELEVATED. VON WILLEBRAND FACTOR ASSESSMENT CURRENT RESULTS INTERPRETATION - THESE RESULTS ARE NOT CONSISTENT WITH A DIAGNOSIS OF VON WILLEBRAND DISEASE. PERSISTENTLY ELEVATED FVIII ACTIVITY IS A RISK FACTOR FOR VENOUS THROMBOSIS WELL RECURRENCE OF VENOUS THROMBOSIS. RISK IS GRADED AND INCREASES WITH THE DEGREE OF ELEVATION. ALTHOUGH ELEVATED FVIII ACTIVITY HAS BEEN IDENTIFIED TO CLUSTER WITHIN FAMILIES, A GENETIC BASIS FOR THE ELEVATION HAS NOT YET BEEN ELUCIDATED (BR J HAEMATOL. 2012; 157(6):653-663). VON WILLEBRAND FACTOR ASSESSMENT - RESULTS MAY BE FALSELY ELEVATED AND POSSIBLY FALSELY NORMAL VWF AND FVIII MAY INCREASE IN SAMPLES DRAWN FROM PATIENTS (PARTICULARLY CHILDREN) WHO ARE VISIBLY STRESSED AT THE TIME OF PHLEBOTOMY, ACUTE PHASE REACTANTS, OR IN RESPONSE TO CERTAIN DRUG THERAPIES SUCH DESMOPRESSIN. REPEAT TESTING MAY BE NECESSARY BEFORE EXCLUDING A DIAGNOSIS OF VWD ESPECIALLY IF THE CLINICAL SUSPICION IS HIGH FOR AN UNDERLYING BLEEDING DISORDER. THE SETTING FOR PHLEBOTOMY SHOULD BE CALM POSSIBLE AND PATIENTS SHOULD BE ENCOURAGED TO SIT QUIETLY PRIOR TO THE BLOOD DRAW. VON WILLEBRAND FACTOR ASSESSMENT DEFINITIONS - VWD - VON WILLEBRAND DISEASE; VWF - VON WILLE[place]AND FACTOR; VWF:AG - VWF ANTIGEN; VWF:ACTIVITY - VWF ACTIVITY; FVIII - FACTOR VIII ACTIVITY. - FOR QUESTIONS REGARDING PANEL INTERPRETATION, PLEASE CONTACT [employer] AT . DISCLAIMER THESE ASSESSMENTS AND INTERPRETATIONS ARE PROVIDED A CONVENIENCE IN SUPPORT OF THE PHYSICIAN-PATIENT RELATIONSHIP AND ARE NOT INTENDED TO REPLACE THE PHYSICIAN'S CLINICAL JUDGMENT. THEY ARE DERIVED FROM NATIONAL GUIDELINES IN ADDITION TO OTHER EVIDENCE AND EXPERT OPINION. THE CLINICIAN SHOULD CONSIDER THIS INFORMATION WITHIN THE CONTEXT OF CLINICAL OPINION AND THE INDIVIDUAL PATIENT. SEE GUIDANCE FOR VON WILLEBRAND FACTOR ASSESSMENT: (1) THE [facility]ATIONAL [facility]LOOD [facility]. THE DIAGNOSIS, EVALUATION AND MANAGEMENT OF VON WILLEBRAND DISEASE. BETHESDA, MD: [facility] PUBLICATION [id number]. 2007. AVAILABLE AT [email or web address] (2) TAM WL ET AL. AM J HEMATOL. 2009; 84(6):366-370. (3) DEEPA M ET AL. HAEMOPHILIA. 2004;10(3):199-217. (4) NIMISHA COREY ET AL. HAEMOPHILIA. 2004; 10(3):218-231. PDF IMAGE . [facility] 02/27/2025 3:48 PM INDUSTRIAL SALES REPRESENTATIVE [facility] - 03/01/2025 5:08 AM INDUSTRIAL SALES REPRESENTATIVE TESTING PERFORMED AT: [BN] LAB[address], [address], PHONE: [phone], STAFF CERTIFIED NURSE MIDWIFE: LAZ MCADAMS MD TESTING PERFORMED AT: [[facility]] [facility] / [facility], [address] [place] [address], [address], PHONE: [phone], STAFF CERTIFIED NURSE MIDWIFE: SHAGUFTA TURNER MD TEST(S) [id number] WILLEBRAND FACTOR (VWF) AG WAS DEVELOPED AND ITS PERFORMANCE CHARACTERISTICS DETERMINED BY [facility]. IT HAS NOT BEEN CLEARED OR APPROVED BY THE FOOD AND DRUG ADMINISTRATION. Release to patient->Immediate López Lind MD LAB SEND OUTS Final Result Performing Organization Address City/[facility]/ZIP Co de Phone Number CANCER TELEPHONE ANSWERING [facility]ICE [facility] [address] [address], * APTT (PTT) (02/27/2025 3:48 PM INDUSTRIAL SALES REPRESENTATIVE) APTT 26 24 - 33 SEC [facility] Comment: THIS TEST HAS NOT BEEN VALIDATED FOR MONITORING UNFRACTIONATED HEPARIN THERAPY. APTT-BASED THERAPEUTIC RANGES FOR UNFRACTIONATED HEPARIN THERAPY HAVE NOT BEEN ESTABLISHED. FOR GENERAL GUIDELINES ON HEPARIN MONITORING, REFER TO THE [facility] DIRECTORY OF SERVICES. Blood 02/27/2025 3:48 PM INDUSTRIAL SALES REPRESENTATIVE Narrative [facility] - 02/28/2025 8:08 AM INDUSTRIAL SALES REPRESENTATIVE TESTING PERFORMED AT: [] [facility], [address] [place] [address], [address], PHONE: [phone], STAFF CERTIFIED NURSE MIDWIFE: HOLGER PINEDA, Release to patient->Immediate López Lind MD HEMATOLOGY ORDERABLES Final Result Performing Organization Address [facility] Co de Phone Number [facility] Cancer Care [address] [address], * LACTATE DEHYDROGENASE (LD) (02/27/2025 3:48 PM INDUSTRIAL SALES REPRESENTATIVE) LDH 199 140 - 271 U/L [facility] Blood 02/27/2025 3:48 PM INDUSTRIAL SALES REPRESENTATIVE Narrative CANCER TELEPHONE ANSWERING SERVICE OPERATOR [facility] - 02/28/2025 8:51 AM INDUSTRIAL SALES REPRESENTATIVE Release to patient->Immediate us López Lind MD CHEMISTRY ORDERABLES Final R esult CANCER TELEPHONE ANSWERING SERVICE OPERATOR [facility] Cancer Care Specialists [facility] [place] [address], [place] [phone] * (ABNORMAL) COMPLETE BLOOD COUNT (CBC) WITH DIFF (02/27/2025 3:48 PM INDUSTRIAL SALES REPRESENTATIVE) WBC 5.7 4.0 - 10.0 10*3/uL CANCER TELEPHONE ANSWERING SERVICE OPERATOR [facility] HGB 14.8 13.7 - 17.5 g/dL CANCER TELEPHONE ANSWERING SERVICE OPERATOR [facility] HCT 45.4 40.1 - 51.0 % CANCER TELEPHONE ANSWERING SERVICE OPERATOR [facility] PLT 154(L) 163 - 369 10*3/uL CANCER TELEPHONE ANSWERING SERVICE OPERATOR [facility] MPV 9.2(L) 9.4 - 12.4 fL CANCER TELEPHONE ANSWERING SERVICE OPERATOR [facility] RBC 4.94 4.63 - 6.08 10*6/uL CANCER TELEPHONE ANSWERING SERVICE OPERATOR [facility] MCV 92 79 - 95 fL [facility] CE NTER [facility]ISTS [facility] MCH 30.0 25.6 - 32.2 pg CANCER TELEPHONE ANSWERING SERVICE OPERATOR [facility] MCHC 32.6 32.2 - 36.5 g/dL CANCER TELEPHONE ANSWERING SERVICE OPERATOR [facility] RDW 13.6 11.6 - 14.4 % CANCER TELEPHONE ANSWERING SERVICE OPERATOR [facility] Absolute Neutrophil Count 2,604 cells/uL [facility] CENT ER SPECIALISTS [facility] Absolute Seg Count 2,604 1,440 - 6,600 cells/uL CANCER TELEPHONE ANSWERING SERVICE OPERATOR [facility] Absolute Lymph Count 1,698 760 - 4,000 cells/uL CANCER TELEPHONE ANSWERING SERVICE OPERATOR [facility] Absolute Schoolcraft Count 623 160 - 1,200 cells/uL CANCER TELEPHONE ANSWERING SERVICE OPERATOR [facility] Absolute Eos Count 509(H) 0 - 300 cells/uL CANCER TELEPHONE ANSWERING SERVICE OPERATOR [facility] Absolute Baso Count 226(H) 0 - 100 cells/uL CANCER TELEPHONE ANSWERING SERVICE OPERATOR [facility] Segmented Neutrophils 46 36 - 66 % CANCER TELEPHONE ANSWERING SERVICE OPERATOR [facility] Lymphocytes 30 19 - 40 % CANCER C ENTER SPECIALISTS [facility] Monocytes 11 4 - 12 % CANCER EBER TER SPECIALISTS [facility] Eosinophils 9(H) 0 - 3 % CANCER C ENTER SPECIALISTS [facility] Basophils 4(H) 0 - 1 % CANCER EBER TER [facility] WBC Estimate Normal CANCER TELEPHONE ANSWERING SERVICE OPERATOR [facility] Platelet Estimate Low CANCER TELEPHONE ANSWERING SERVICE OPERATOR [facility] RBC Morphology Normal CANCE R TELEPHONE ANSWERING SERVICE OPERATOR [facility] Blood 02/27/2025 3:48 PM INDUSTRIAL SALES REPRESENTATIVE Narrative CANCER TELEPHONE ANSWERING SERVICE OPERATOR [facility] - 02/28/2025 2:13 PM INDUSTRIAL SALES REPRESENTATIVE Release to patient->Immediate us López Lind MD HEMATOLOGY ORDERABLES Final Result CANCER TELEPHONE ANSWERING SERVICE OPERATOR [facility] Cancer Care [facility] [address] [place] [address], from Last 3 Months Insurance MEDICA Care Teams Glaze Carrier Relationship Specialty Start Date End Date Luh Santoyo DO [address] [place] [address], [address] [address] PCP - General Family Medicine 02/07/25 López Lind MD [address] [place] [phone] Consulting Physician Oncology 02/07/25
--- OUTSIDE RECORDS SUMMARY | 2025-04-25 06:54 | XMS_ITS | Encounter Summary ---
Author Organization [facility] Address [facility] [place] [address] Care Team Providers Care Content Creation Manager Name Role Phone El Cook MD Unavailable Luh Santoyo DO Primary Care Provider [phone] Shaw Martinez MD Unavailable [phone] Encounter Details Date Type Department Care Team (Late st Contact Info) Description 03/10/2025 [place] [employer] Message Enc [facility] Medical Group Orthopedic & Sports Medicine - [address] [address] [place], [facility] Provider surgical scheduling Social History Tobacco Use Types Packs/Day Years [...] Sex Assigned at Male 05/02/2024 1:46 PM HEELER MACHINE Legal Sex Male 2:51 PM HEELER MACHINE Gender Identity Male 06/04/2024 4:19 PM HEELER MACHINE Sexual Orientation Straight 06/04/2024 4: 19 PM HEELER MACHINE documented as of this encounter Plan of Treatment Upcoming Encounters Date Type Department Care Team (Late st Contact Info) Description 05/12/2025 2:30 PM HEELER MACHINE Office Visit [facility] [address] [place] [address] Timo Hanna MD Three [facility] [address] [place] [address] 05/15/2025 11:00 AM HEELER MACHINE Office Visit [facility] Orthopedic & Sports Medicine - [place] [address] [place] [address] Nehemiah Almonte MD 670 [facility] [address] [place], [place] [address] 532- 05/22/2025 2:15 PM HEELER MACHINE Office Visit [facility] THREE [facility], [address] [place] [address] Dione Duke PA 3 [facility] [address] [place] [address] 05/30/2025 9:00 AM HEELER MACHINE Allied Health/Nurse Visit [facility] Orthopedic & Sports Medicine [facility] [address] [place] [address] Nehemiah Almonte MD [address] [place] [address] [place] [address] 08/04/2025 3:00 PM CDT Office Visit [facility] Medical Group Family & Internal Medicine [place] [address] [place] [address] Luh Santoyo DO 3 [facility]. [address] [place] [address] documented as of this encounter Visit Diagnoses Not on filedocumented in this encounter Additional Health Concerns Assessment Noted Time PHQ-9 Depression Total Score: 2 02/12/20 9:05 AM CDT documented as of this encounter Care Teams Content Creation Manager Relationship Specialty Start Date End Date Luh Santoyo DO [facility] [place] [address] PCP - General FAMILY PRACTICE 02/03/25 El Cook MD [address] [phone] UNKNOWN PHYSICIAN SPECIALTY 01/15/24 Shaw Martinez MD [facility] [address] [place] [address] Consulting Physician CLINICAL CARDIAC ELECTROPHYSIOLOGY 03/31/25 documented as of this encounter
--- OUTSIDE RECORDS SUMMARY | 2025-04-25 06:54 | XMS_ITS | Clinical Summary ---
Author Organization [facility] Address [address] [place] [place] [address] Care Team Providers Care Breast Puller Name Role Phone Shannon Melgar MD Unavailable Unknown, Provider Primary Care Provider Unavaila ble Source Comments [facility],non-owned Affiliates and Associated Physician Practices is amultiple site organization consisting of ambulatory clinics and hospital sitesin [place], [place], [place] and [place]. This disclosure is being madepursuant to the Care Everywhere program and may not contain all information available regarding this patient. Last updated 18.[facility] nfon Social History Tobacco Use Types Packs/Day Years Used Date Smoking Tobacco: Never Assessed Sex and Gender Information Value Date Recorded Sex Assigned at Male 06/18/2024 8:32 AM ACCOUNTANT SUPERVISOR Legal Sex Male 8:32 AM ACCOUNTANT SUPERVISOR Gender Identity Male 06/18/2024 8:32 AM ACCOUNTANT SUPERVISOR Sexual Orientation Not on file Plan [...] 50+ (1 of 2 - PCV) 12/14/1975 Respiratory Syncytial Virus (RSV) Vaccine Pt: or over 60 yrs (1 - Risk 50-74 years 1-dose series) 2006 ZOSTER VACCINE (1 of 2) 2006 HEPATITIS B VACCINE (1 of 3 - Risk 3-dose series) 2016 COVID-19 VACCINE (2 - 2024-2 6 season) 2024 02/08/2024 INFLUENZA VACCINE (#1) 2024 01/25/2024 DEPRESSION SCREENING 04/17/2025 LIPID TESTING 01/30/2029 01/31/2024, 12/01/2022 HEPATITIS C [...] on patient's age to complete this topic ROTAVIRUS VACCINE Aged Out No longer eligible based on patient's age to complete this topic Insurance [facility] Care Teams Breast Puller Relationship Specialty Start Date End Date Shannon Melgar MD [address] [place] [id number] PCP - Attributed-[facility] 05/18/24 Unknown, Provider PCP - General 07/09/24
== END 2024-12-25 06:52 ==
LOC: ANHCARD 04-25 06:52
PROVIDERS: Visit Provider Student in an Organized Health Care Education/Training Program
DX: R40.4 Transient alteration of awareness (principal)
CPT/HCPCS: 93242

== ENCOUNTER 2025-01-06 16:43 | Emergency (ER) | payer OTHER, SELFPAY ==
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
--- OUTSIDE RECORDS SUMMARY | 2025-01-06 16:46 | XMS_ITS | Clinical Summary ---
Author Organization [facility] Address [address] [place] [address] Care Team Providers Care Commercial Truck Driver Name Role Phone Shannon Melgar MD Unavailable Unknown, Provider Primary Care Provider Unavaila ble Source Comments [facility],non-owned Affiliates and Associated Physician Practices is amultiple site organization consisting of ambulatory clinics and hospital sitesin [place], [place], [place] and [place]. This disclosure is being madepursuant to the Care Everywhere program and may not contain all information available regarding this patient. Last updated 18.[facility] Encounters Date Type Department Care Team Description 11/27/2024 3:15 PM CDT - 11/27/2024 11:59 PM CDT Hospital Encounter [address] [address] Shannon Melgar MD Discharge Disposition: Home or Self Care 11/27/2024 Travel from Last 3 Months Social History Tobacco Use Types Packs/Day Years Used Date Smoking Tobacco: Never Assessed Sex and Gender Information Value Date Recorded Sex Assigned at Male 06/18/2024 8:32 AM FLOOR SPECIALIST Legal Sex Male 8:32 AM FLOOR SPECIALIST Gender Identity Male 06/18/2024 8:32 AM FLOOR SPECIALIST Sexual Orientation Not on file Plan of [...] - Risk 60-74 years 1-dose series) 2016 DEPRESSION SCREENING 04/17/2024 COVID-19 VACCINE (2 - 2024-2 6 season) 2024 02/08/2024 INFLUENZA VACCINE (#1) 2024 01/25/2024 LIPID TESTING [...] Ramírez 11/27/2024 4:47 PM > Dictated by Tour Sales Representative I, Bairon Matos have personally reviewed and interpreted this examination/study. > Interpreting Provider: Bairon Matos on 11/27/2024 8:35 PM Narrative 11/27/2024 8:35 PM CDT PROCEDURE: US ELASTOGRAPHY, DATE/TIME OF EXAM: 11/27/2024 3:59 PM, LOCATION [facility] INDICATION: K74.60: Cirrhosis of liver without [...] DATE/TIME OF EXAM: 11/27/2024 3:59 PM, LOCATION [facility] INDICATION: K74.60: Cirrhosis of liver without [...] Ramírez 11/27/2024 4:47 PM > Dictated by Tour Sales Representative I, Bairon Matos have personally reviewed and interpreted this examination/study. > Interpreting Provider: Bairon Matos on 11/27/2024 8:35 PM us Shannon Melgar MD ORDERABLES Final Result from Last 3 Months Insurance [facility] [place] [address] Care Teams Commercial Truck Driver Relationship Specialty Start Date End Date Shannon Melgar MD [address] [address] PCP - Attributed-[employer] STL 05/18/24 Unknown, Provider PCP - General 07/09/24
--- OUTSIDE RECORDS SUMMARY | 2025-01-06 16:46 | XMS_ITS | Encounter Summary ---
Author Organization [facility] Address Psychiatric [facility] [place] [address] Care Team Providers Care It Architecture Analyst Name Role Phone Shannon Melgar MD Primary Care Provider [phone] El Cook MD Unavailable Encounter Details Date Type Department Care Team (Late st Contact Info) Description 06/21/2024 SmartSynch Message Enc [facility] Medical Group Multispecialty Care - [address] [place] [address] [facility], [facility] Provider lab results Social History [...] Sex Assigned at Male 05/02/2024 1:46 PM SURFACING TECHNICIAN Legal Sex Male 2:51 PM SURFACING TECHNICIAN Gender Identity Male 06/04/2024 4:19 PM SURFACING TECHNICIAN Sexual Orientation Straight 06/04/2024 4: 19 PM SURFACING TECHNICIAN documented as of this encounter Plan of Treatment Upcoming Encounters Date Type Department Care Team (Late st Contact Info) Description 01/09/2025 12:30 PM CDT Telephone [place] [facility], [facility] [address] [place] [address] Shannon Melgar MD [address] [address] 03/04/2025 3:00 PM SURFACING TECHNICIAN [facility] [place] [address] [address] [place] [address] Shannon Melgar MD [facility] [address] [address] 04/21/2025 1:30 PM SURFACING TECHNICIAN Office Visit [facility]-[address] [address] Timo Hanna MD [facility] Suite [facility] [place] [address] 04/22/2025 10:30 AM SURFACING TECHNICIAN Office Visit [place] [facility], [facility] [address] [place] [address] Dione Duke PA 3 [facility] Suite [facility] [place] [address] 06/04/2025 4:20 PM SURFACING TECHNICIAN [facility] [place] [address] [address] [place] [address] Shannon Melgar MD [facility] [address] [address] documented as of this encounter Visit Diagnoses Not on filedocumented in this encounter Additional Health Concerns Assessment Noted Time PHQ-9 Depression Total Score: 2 06/04/19 25 5:17 PM SURFACING TECHNICIAN documented as of this encounter Care Teams It Architecture Analyst Relationship Specialty Start Date End Date Shannon Melgar MD [address] [facility] [address] [place] [address] PCP - General INTERNAL MEDICINE 08/01/23 El Cook MD [address] [place] [address] [address] UNKNOWN PHYSICIAN SPECIALTY 01/15/24 documented as of this encounter
--- OUTSIDE RECORDS SUMMARY | 2025-01-06 16:46 | XMS_ITS | Encounter Summary ---
Author Organization [facility] Address [facility] [place] [address] Care Team Providers Care Sales Operations Manager Name Role Phone Shannon Melgar MD Primary Care Provider [phone] El Cook MD Unavailable Encounter Details Date Type Department Care Team (Latest Contact Info) Description 10/18/2023 [email or web address] Message Enc [facility] Medical Group Multispecialty Care - [address] [place] [address] Shannon Melgar MD 1188 [facility] [address] [place] [address] Atrial fibulation Social History Tobacco [...] Sex Assigned at Male 05/02/2024 1:46 PM WEATHERIZATION SPECIALIST Legal Sex Male 2:51 PM WEATHERIZATION SPECIALIST Gender Identity Male 06/04/2024 4:19 PM WEATHERIZATION SPECIALIST Sexual Orientation Straight 06/04/2024 4: 19 PM WEATHERIZATION SPECIALIST documented as of this encounter Plan of Treatment Upcoming Encounters Date Type Department Care Team (Late st Contact Info) Description 01/09/2025 12:30 PM CDT [facility]phone [place] [facility] [address] [address] Shannon Melgar MD [address] [place] [address] 03/04/2025 3:00 PM WEATHERIZATION SPECIALIST [facility] [place] [address] [address] [place] [address] Shannon Melgar MD [address] [place] [address] 04/21/2025 1:30 PM WEATHERIZATION SPECIALIST Office Visit [facility]-[address] [address] Timo Hanna MD [facility], Suite [facility] [place] [address] 04/22/2025 10:30 AM WEATHERIZATION SPECIALIST Office Visit [place] [facility], [address] [address] Dione Duke PA 3 [facility] [address] [place] [address] 06/04/2025 4:20 PM WEATHERIZATION SPECIALIST [facility] [place] [address] [address] [place] [address] Shannon Melgar MD [address] [place] [address] documented as of this encounter Visit Diagnoses Not on filedocumented in this encounter Additional Health Concerns Assessment Noted Time PHQ-9 Depression Total Score: 6 08/01/19 24 4:28 PM CDT documented as of this encounter Care Teams Sales Operations Manager Relationship Specialty Start Date End Date Shannon Melgar MD [address] [facility] [address] [place] [address] PCP - General INTERNAL MEDICINE 08/01/23 El Cook MD [address] [phone] UNKNOWN PHYSICIAN SPECIALTY 01/15/24 documented as of this encounter
--- OUTSIDE RECORDS SUMMARY | 2025-01-06 16:46 | XMS_ITS | Clinical Summary ---
Author Organization [facility] Address [address] [place] [address] Phone Care Team Providers Care Welder Pipe Making Name Role Phone Unavailable Primary Care Provider Unavailabl e Encounters Date Type Department Care Team Description 01/02/2025 9:55 AM CDT - 01/02/2025 11:59 PM CDT Hospital Encounter [facility] [address] [phone] Howard Huffman MD Arrived Discharge Disposition: Home or Self Care from Last 3 Months Social History Tobacco Use Types Packs/Day Years Used Date Smoking Tobacco: Never Assessed Sex and Gender Information Value Date Recorded Sex Assigned at Not on file Legal Sex Male 9:48 AM CDT Gender Identity Not on file Sexual Orientation Not on file Plan of Treatment Health Maintenance Due Date Last Done Comments DIABETES ANNUAL FOOT EXAM 1974 DIABETES MICROALBUMIN ANNUAL SCREEN 1974 LDL CHOLESTEROL ANNUAL 1974 FIT-DNA Q 3 years 2001 FIT/FOBT Q 1 year 2001 Flex Sig/CT Colonography Q 5 years 2001 RSV VACCINE (60+ or ) (1 - Risk 60-74 years 1-dose series) 2016 ZOSTER VACCINE (2 of 3) 06/13/2017 04/18/2017 DIABETES HBA1C Q 6 MONTHS 07/31/2024 01/31/2024, 03/2023 INFLUENZA VACCINE (#1) 2024 , 02/19/2022, 01/18/2020 COVID-19 Vaccine ( - 2024-2 6 season) 2024 02/18/2024, 02/08/2024, 04/17/2022, Additional history exists DIABETES ANNUAL RETINAL EXAM 12/12/2025 12/12/2024 COLORECTAL SCREENING 03/29/2028 03/29/2018 Colorectal Cancer Screening 03/29/2028 DTAP/TDAP/TD VACCINES (3 - T d or Tdap) 12/24/2028 12/24/2018, 06/15/2008 PNEUMOCOCCAL VACCINE 50+ YEARS Completed 06/04/2024 , 06/02/2021 Procedures Procedure Name Priority Date/Time Associated Diagnosis Comments XR ABDOMEN 1 VW Routine 01/02/2025 10:17 AM CDT Kidney stone from Last 3 Months Results * XR ABDOMEN 1 VW (01/02/2025 10:17 AM CDT) Anatomical Region Laterality Modality Abdomen Computed Radiogr aphy 01/02/2025 10:1 7 AM CDT Impressions 01/02/2025 10:49 AM CDT IMPRESSION: Evaluation of both kidneys limited by overlying bowel content. Suspect a few less than 3 mm right renal calculi. Vascular calcification and phleboliths in the pelvis. Narrative 01/02/2025 10:49 AM CDT EXAMINATION: XR ABDOMEN 1 VW DATE: 01/02/2025 10:17 AM. COMPARISON: None HISTORY: Kidney stones Procedure Note Arnold Martinez MD - 01/02/2025 EXAMINATION: XR ABDOMEN 1 VW DATE: 01/02/2025 10:17 AM. COMPARISON: None HISTORY: Kidney stones IMPRESSION: Evaluation of both kidneys limited by overlying bowel content. Suspect a few less than 3 mm right renal calculi. Vascular calcification and phleboliths in the pelvis. Howard Huffman MD DIAGNOSTIC IMAGING ORDERAB LES Final Result from Last 3 Months Insurance [facility] [id number] OUT OF NETWORK [place] [id number]
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
[2025-01-06] MEDS: TETANUS,DIPHTHERIA,AC PERTUSSIS ADULT (0.5 ML) BOOSTRIX IM (18:02)
[2025-01-06 18:28] VITALS: BP 125/83; PULSE 99; RESP 18; O2SAT 99
--- OUTSIDE RECORDS SUMMARY | 2025-01-06 19:27 | XMS_ITS | Encounter Summary ---
Author Organization [facility] Address [facility] [place] [address] Care Team Providers Care Machine Heel Sprayer Name Role Phone Shannon Melgar MD Primary Care Provider [phone] El Cook MD Unavailable Encounter Details Date Type Department Care Team (Late st Contact Info) Description 07/03/[address] [facility] [address] [place] [address] Anila Gibbons, [place] [address] Social History Tobacco Use Types Packs/Day Years [...] Sex Assigned at Male 05/02/2024 1:46 PM BACK SIZER Legal Sex Male 2:51 PM BACK SIZER Gender Identity Male 06/04/2024 4:19 PM BACK SIZER Sexual Orientation Straight 06/04/2024 4: 19 PM BACK SIZER documented as of this encounter Plan of Treatment Upcoming Encounters Date Type Department Care Team (Late st Contact Info) Description 01/09/2025 12:30 PM CDT Telephone [facility], [address] [address] Shannon Melgar MD [address] [place] [address] 03/04/2025 3:00 PM BACK SIZER [facility] [place] [address] [address] [place] [address] Shannon Melgar MD [address] [place] [address] 04/21/2025 1:30 PM BACK SIZER Office Visit [facility] [address] Timo Hanna MD [facility], Suite [facility] [place] [address] 04/22/2025 10:30 AM BACK SIZER Office Visit [facility], [address] [address] Dione Duke PA 3 [facility] [address] [place] [address] 06/04/2025 4:20 PM BACK SIZER Office Visit [facility] [place] [address] [address] [place] [address] Shannon Melgar MD [address] [place] [address] documented as of this encounter Visit Diagnoses Not on filedocumented in this encounter Additional Health Concerns Assessment Noted Time PHQ-9 Depression Total Score: 2 06/04/19 25 5:17 PM BACK SIZER documented as of this encounter Care Teams Machine Heel Sprayer Relationship Specialty Start Date End Date Shannon Melgar MD [address] [address] PCP - General INTERNAL MEDICINE 08/01/23 El Cook MD [address] [phone] UNKNOWN PHYSICIAN SPECIALTY 01/15/24 documented as of this encounter
--- OUTSIDE RECORDS SUMMARY | 2025-01-06 19:27 | XMS_ITS | Encounter Summary ---
Author Organization [facility] Address [facility] [place] [address] Care Team Providers Care Cream Cheese Maker Name Role Phone Shannon Melgar MD Primary Care Provider [phone] El Cook MD Unavailable Encounter Details Date Type Department Care Team (Latest Contact Info) Description 10/18/2023 Flat.to Message Enc [facility] Medical Group Multispecialty Care - [address] [place] [address] Shannon Melgar MD [address] [facility] [address] [place] [address] Atrial fibulation Social History Tobacco [...] Sex Assigned at Male 05/02/2024 1:46 PM RESISTANCE WELDING MACHINE OPERATOR Legal Sex Male 2:51 PM RESISTANCE WELDING MACHINE OPERATOR Gender Identity Male 06/04/2024 4:19 PM RESISTANCE WELDING MACHINE OPERATOR Sexual Orientation Straight 06/04/2024 4: 19 PM RESISTANCE WELDING MACHINE OPERATOR documented as of this encounter Plan of Treatment Upcoming Encounters Date Type Department Care Team (Late st Contact Info) Description 01/09/2025 12:30 PM CDT [facility]phone [facility] [address] [address] Shannon Melgar MD [address] [place] [address] 03/04/2025 3:00 PM RESISTANCE WELDING MACHINE OPERATOR [facility] [place] [address] [address] [place] [address] Shannon Melgar MD [address] [place] [address] 04/21/2025 1:30 PM RESISTANCE WELDING MACHINE OPERATOR Office Visit [facility] [address] Timo Hanna MD [facility], Suite [facility] [place] [address] 04/22/2025 10:30 AM RESISTANCE WELDING MACHINE OPERATOR Office Visit [facility], [address] [address] Dione Duke PA 3 [facility] [address] [place] [address] 06/04/2025 4:20 PM RESISTANCE WELDING MACHINE OPERATOR [facility] [place] [address] [address] [place] [address] Shannon Melgar MD [address] [place] [address] documented as of this encounter Visit Diagnoses Not on filedocumented in this encounter Additional Health Concerns Assessment Noted Time PHQ-9 Depression Total Score: 6 08/01/19 24 4:28 PM CDT documented as of this encounter Care Teams Cream Cheese Maker Relationship Specialty Start Date End Date Shannon Melgar MD [address] [facility] [address] [place] [address] PCP - General INTERNAL MEDICINE 08/01/23 El Cook MD [address] [phone] UNKNOWN PHYSICIAN SPECIALTY 01/15/24 documented as of this encounter
--- OUTSIDE RECORDS SUMMARY | 2025-01-06 19:27 | XMS_ITS | Clinical Summary ---
Author Organization [facility] Address [address] [place] [address] Care Team Providers Care Summons Server Name Role Phone Shannon Melgar MD Unavailable Unknown, Provider Primary Care Provider Unavaila ble Source Comments [facility],non-owned Affiliates and Associated Physician Practices is amultiple site organization consisting of ambulatory clinics and hospital sitesin [place], [place], [place] and [place]. This disclosure is being madepursuant to the Care Everywhere program and may not contain all information available regarding this patient. Last updated 18.[facility] Encounters Date Type Department Care Team Description 11/27/2024 3:15 PM CDT - 11/27/2024 11:59 PM CDT Hospital Encounter [address] [phone] Shannon Melgar MD Discharge Disposition: Home or Self Care 11/27/2024 Travel from Last 3 Months Social History Tobacco Use Types Packs/Day Years Used Date Smoking Tobacco: Never Assessed Sex and Gender Information Value Date Recorded Sex Assigned at Male 06/18/2024 8:32 AM ORCHID HAND Legal Sex Male 8:32 AM ORCHID HAND Gender Identity Male 06/18/2024 8:32 AM ORCHID HAND Sexual Orientation Not on file Plan of [...] Ramírez 11/27/2024 4:47 PM > Dictated by Acoustics Teacher I, Bairon Matos have personally reviewed and interpreted this examination/study. > Interpreting Provider: Bairon Matos on 11/27/2024 8:35 PM Narrative 11/27/2024 8:35 PM CDT PROCEDURE: US ELASTOGRAPHY, DATE/TIME OF EXAM: 11/27/2024 3:59 PM, LOCATION [facility] INDICATION: K74.60: Cirrhosis of liver [...] DATE/TIME OF EXAM: 11/27/2024 3:59 PM, LOCATION [facility] INDICATION: K74.60: Cirrhosis of liver [...] Ramírez 11/27/2024 4:47 PM > Dictated by Acoustics Teacher I, Bairon Matos have personally reviewed and interpreted this examination/study. > Interpreting Provider: Bairon Matos on 11/27/2024 8:35 PM us Shannon Melgar MD ORDERABLES Final Result from Last 3 Months Insurance [facility] Care Teams Summons Server Relationship Specialty Start Date End Date Shannon Melgar MD [address] [address] PCP - Attributed-[facility] 05/18/24 Unknown, Provider PCP - General 07/09/24
--- OUTSIDE RECORDS SUMMARY | 2025-01-06 19:27 | XMS_ITS | Encounter Summary ---
Author Organization [facility] Address [facility] [place] [address] Care Team Providers Care High Risk Case Manager Name Role Phone Shannon Melgar MD Primary Care Provider [phone] El Cook MD Unavailable Encounter Details Date Type Department Care Team (Late st Contact Info) Description 06/21/2024 Eat Latin Message Enc [facility] Medical Group Multispecialty Care - [address] [place] [address] [facility], [facility] Provider lab results Social History Tobacco Use [...] Sex Assigned at Male 05/02/2024 1:46 PM TECHNICAL SUPPORT INTERN Legal Sex Male 2:51 PM TECHNICAL SUPPORT INTERN Gender Identity Male 06/04/2024 4:19 PM TECHNICAL SUPPORT INTERN Sexual Orientation Straight 06/04/2024 4: 19 PM TECHNICAL SUPPORT INTERN documented as of this encounter Plan of Treatment Upcoming Encounters Date Type Department Care Team (Late st Contact Info) Description 01/09/2025 12:30 PM CDT Telephone [facility] THREE [facility] [address] [place] [address] Shannon Melgar MD [address] [address] 03/04/2025 3:00 PM TECHNICAL SUPPORT INTERN [facility] [place] [address] [address] [place] [address] Shannon Melgar MD [facility] [address] [address] 04/21/2025 1:30 PM TECHNICAL SUPPORT INTERN Office Visit [facility] [address] Timo Hanna MD Three [facility] Suite [facility] [place] [address] 04/22/2025 10:30 AM TECHNICAL SUPPORT INTERN Office Visit [facility], [facility] [address] [place] [address] Dione Duke PA 3 [facility] Suite [facility] [place] [address] 06/04/2025 4:20 PM TECHNICAL SUPPORT INTERN [facility] [place] [address] [address] [place] [address] Shannon Melgar MD [facility] [address] [address] documented as of this encounter Visit Diagnoses Not on filedocumented in this encounter Additional Health Concerns Assessment Noted Time PHQ-9 Depression Total Score: 2 06/04/19 25 5:17 PM TECHNICAL SUPPORT INTERN documented as of this encounter Care Teams High Risk Case Manager Relationship Specialty Start Date End Date Shannon Melgar MD [address] [facility] [address] [place] [address] PCP - General INTERNAL MEDICINE 08/01/23 El Cook MD [address] [phone] UNKNOWN PHYSICIAN SPECIALTY 01/15/24 documented as of this encounter
--- OUTSIDE RECORDS SUMMARY | 2025-01-06 19:27 | XMS_ITS | Encounter Summary ---
Author Organization [facility] Address [facility] [place] [address] Care Team Providers Care Chemical Test Engineer Name Role Phone Shannon Melgar MD Primary Care Provider [phone] El Cook MD Unavailable Reason for Referral * Consultation (Urgent) - New Request Specialty Diagnoses / Procedures Referred By Contac t Referred To Contact Hepatology Diagnoses Cirrhosis of liver without ascites, unspecified hepatic cirrhosis type (CMS/HCC HHS/HCC) Procedures OFFICE/OUTPATIENT NEW LOW MDM 30-44 MINUTES OFFICE/OUTPT VISIT,NEW,LEVL IV OFFICE/OUTPT VISIT,NEW,LEVL V OFFICE/OUTPT VISIT,EST,LEVL III OFFICE/OUTPT VISIT,EST,LEVL IV OFFICE/OUTPT VISIT,EST,LEVL V Shannon Meglar MD [address] [address] Phone: tel: fax: Referral ID Status Reason Start Date Expiration Date Visits Requested Visits Authorized [id number] New Request Specialty Services 01/06/2025 01/06/2026 1 1 Encounter Details Date Type Department Care Team (Latest Contact Info) Description 01/06/2025 Results Follow-Up [facility] Medical Group Multispecialty Care - [place] [address] [address] [place] [address] Shannon Melgar MD [address] [address] ANTINUCLEAR ANTIBODY [place] RFX (AURA), MAGNESIUM, CBC W/DIFF AUTOMATED, COMPREHENSIVE METABOLIC PANEL Social History Tobacco Use Types Packs/Day Years [...] Sex Assigned at Male 05/02/2024 1:46 PM SENIOR COMMISSIONS ANALYST Legal Sex Male 2:51 PM SENIOR COMMISSIONS ANALYST Gender Identity Male 06/04/2024 4:19 PM SENIOR COMMISSIONS ANALYST Sexual Orientation Straight 06/04/2024 4: 19 PM SENIOR COMMISSIONS ANALYST documented as of this encounter Plan of Treatment Upcoming Encounters Date Type Department Care Team (Late st Contact Info) Description 01/09/2025 12:30 PM CDT Telephone [facility] [address] Shannon Melgar MD [address] [place] [address] 03/04/2025 3:00 PM SENIOR COMMISSIONS ANALYST Office Visit [facility] Medical Group Multispecialty Care - [place] [address] [address] [place] [address] Shannon Melgar MD [facility] [address] [address] 04/21/2025 1:30 PM SENIOR COMMISSIONS ANALYST Office Visit [facility] [address] Timo Hanna MD Three [facility] [address] [place] [address] 04/22/2025 10:30 AM SENIOR COMMISSIONS ANALYST Office Visit [facility] THREE [facility], [address] [place] [address] Dione Duke PA 3 [facility] [address] [place] [address] 06/04/2025 4:20 PM SENIOR COMMISSIONS ANALYST Office Visit [facility] Medical Group Multispecialty Care - [place] [address] [address] [place] [address] Shannon Melgar MD [address] [place] [address] Scheduled Referrals Name Type Priority Associated Diagnoses Orde r Schedule Ambulatory referral to Hepatology Referral Routine Cirrhosis of liver without ascites, unspecified hepatic cirrhosis type (CMS/HCC HHS/HCC) Ordered: 01/06/2025 documented as of this encounter Visit Diagnoses Diagnosis Cirrhosis of liver without ascites, unspecified hepatic cirrhosis type (CMS/HCC HHS/HCC)- Primary documented in this encounter Additional Health Concerns Assessment Noted Time PHQ-9 Depression Total Score: 7 12/04/19 25 4:17 PM CDT documented as of this encounter Care Teams Chemical Test Engineer Relationship Specialty Start Date End Date Shannon Melgar MD [address] [place] [address] PCP - General INTERNAL MEDICINE 08/01/23 El Cook MD [address] [phone] UNKNOWN PHYSICIAN SPECIALTY 01/15/24 documented as of this encounter
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
--- OUTSIDE RECORDS SUMMARY | 2025-01-06 19:27 | XMS_ITS | Clinical Summary ---
Author Organization [facility] Address [address] [place] [address] Phone Care Team Providers Care Application Release Manager Name Role Phone Unavailable Primary Care Provider Unavailabl e Encounters Date Type Department Care Team Description 01/02/2025 9:55 AM CDT - 01/02/2025 11:59 PM CDT Hospital Encounter [facility] [address] [address] Howard Huffman MD Arrived Discharge [...] Final Result from Last 3 Months Insurance [facility] [id number] OUT OF NETWORK [place] [id number]
[2025-01-06 20:16] VITALS: TEMP 36.6
[2025-01-06 20:21] VITALS: BP 130/87; PULSE 69; RESP 16; TEMP 36.7; O2SAT 100
== END 2025-01-06 20:22 | disposition home or self-care (01) ==
PROVIDERS: Emergency Provider Physician Assistant; PCP Internal Medicine
DX: S81.011A Laceration without foreign body, right knee, initial encounter (principal); Z23 Encounter for immunization; I10 Essential (primary) hypertension; I48.91 Unspecified atrial fibrillation; D68.01 Von Willebrand disease, type 1; E78.5 Hyperlipidemia, unspecified; E11.9 Type 2 diabetes mellitus without complications; G47.30 Sleep apnea, unspecified; Z87.442 Personal history of urinary calculi; F43.10 Post-traumatic stress disorder, unspecified; F32.A Depression, unspecified; F41.9 Anxiety disorder, unspecified; Z79.01 Long term (current) use of anticoagulants; Z79.899 Other long term (current) drug therapy; Z79.84 Long term (current) use of oral hypoglycemic drugs; Z79.85 Long-term (current) use of injectable non-insulin antidiabetic drugs; V18.4XXA Pedal cycle driver injured in noncollision transport accident in traffic accident, initial encounter; Y93.55 Activity, bike riding
CPT/HCPCS: 12002; 73564; 90471; 90715; 99283

== ENCOUNTER 2025-01-28 09:43 | Outpatient (CLI) | payer OTHER, SELFPAY ==
--- NOTE | ~2025-01-28 | MR_ITS ---
EXAMINATION: MR shoulder LT wo con DATE: 01/28/2025 10:26 INDICATION: Injury of the tendon of long head of biceps. TECHNIQUE: Magnetic resonance imaging (MRI) of the left shoulder was performed without intravenous contrast. Sequences included axial PD-weighted FS FSE, coronal oblique PD-weighted FS FSE, coronal oblique T2-weighted FS FSE, sagittal PD-weighted FS FSE, and sagittal T1-weighted SE. COMPARISON: None. FINDINGS: Coracoacromial arch: The acromion undersurface is curved in morphology (type II). The coracoacromial ligament is normal. Moderate acromioclavicular osteoarthritis with moderate sized predominantly cephalad directed osteophytes. Rotator cuff: Moderate supraspinatus and infraspinatus tendinopathy with full-thickness tear extending 2.2 cm AP and 1.5 cm medial to lateral along the superior and anterior third of the middle facet footplates of the supraspinatus tendon and conjoined portion of the supraspinatus and infraspinatus tendons. There is a small amount of residual frayed tendon material along the footplate of the tendon. The articular side of the tear margin is retracted an additional 1 cm medially. The teres minor tendon is normal. Mild subscapularis tendinopathy without tear. Normal rotator cuff muscle bulk and signal. Biceps tendon, glenoid labrum and glenohumeral cartilage: Severe tendinopathy and longitudinal split tearing of the intra-articular long head biceps tendon including less severe in the extra-articular portion of the tendon at the level of the intertubercular groove. Partial-thickness cartilage loss with smooth chondral surface along the cephalad half of the glenoid. There is degenerative tearing of the labrum. Additional chronic degeneration inferior glenoid labrum which is been largely replaced by small marginal osteophytes. There is deep chondral ulceration along the lateral margin of the cartilage at the cephalad aspect of the humeral head. Less severe partial thickness cartilage loss with smooth chondral surface along the inferomedial and superomedial aspect of the humeral head. Fluid: Small glenohumeral joint effusion with mild synovitis at the axillary and posterior recess of the joint space. Synovitis along the long head biceps tendon sheath. No loose osteochondral bodies. Moderate amount of fluid and tenosynovitis in the subacromial/subdeltoid and subcoracoid bursae likely due to combination of bursitis and decompression of joint fluid from the glenohumeral joint space through the full-thickness rotator cuff tear. Bones: No fracture or pathologic marrow replacing process. Mild cystic and hypertrophic changes along the lesser and greater tuberosities consistent with chronic rotator cuff disease. IMPRESSION: 1. Moderate supraspinatus and infraspinatus tendinopathy with moderate-sized full-thickness tear along the greater tuberosity involving the entire supraspinatus tendon including the conjoined portion of the supraspinatus and infraspinatus tendons. 2. Mild glenohumeral osteoarthritis with chronic labral degeneration and small likely reactive glenohumeral joint effusion. 3. Mild bicipital tenosynovitis with severe tendinopathy and longitudinal split tearing of the intra-articular long head biceps tendon. 4. Moderate acromioclavicular osteoarthritis. 5. Fluid and synovitis in the subacromial/subdeltoid and subcoracoid bursae consistent examination bursitis and decompression of the humeral joint fluid through the full-thickness rotator cuff tear. Reviewed, dictated and finalized at location A. IMPRESSION: 1. Moderate supraspinatus and infraspinatus tendinopathy with moderate-sized fu ll-thickness tear along the greater tuberosity involving the entire supraspinat us tendon including the conjoined portion of the supraspinatus and infraspinatu s tendons. 2. Mild glenohumeral osteoarthritis with chronic labral degeneration and small likely reactive glenohumeral joint effusion. 3. Mild bicipital tenosynovitis with severe tendinopathy and longitudinal split tearing of the intra-articular long head biceps tendon. 4. Moderate acromioclavicular osteoarthritis. 5. Fluid and synovitis in the subacromial/subdeltoid and subcoracoid bursae con sistent examination bursitis and decompression of the humeral joint fluid throu gh the full-thickness rotator cuff tear.
--- OUTSIDE RECORDS SUMMARY | 2025-01-28 11:03 | XMS_ITS | Clinical Summary ---
Author Organization [facility] Address [address] [place] [phone] Phone Care Team Providers Care Curator Of Manuscripts Name Role Phone Unavailable Primary Care Provider Unavailabl e Encounters Date Type Department Care Team Description 01/07/2025 External Device Data [facility] ABSTRACTION Provider, Abstract 01/07/2025 External Device Data [facility] ABSTRACTION Provider, Abstract 01/07/2025 External Device Data [facility] ABSTRACTION Provider, Abstract 01/02/2025 9:55 AM CDT - 01/02/2025 11:59 PM CDT Hospital Encounter [facility] [address] [address] Howard Huffman MD Discharge Disposition: Home or Self Care from [...] 07/31/2024 01/31/2024, 03/2023 INFLUENZA VACCINE (#1) 2024 3, 02/19/2022, 01/18/2020 COVID-19 Vaccine (2024-2 6 season) 2024 02/18/2024, 02/08/2024, 04/17/2022, Additional [...] Vascular calcification and phleboliths in the pelvis. us Howard Huffman MD DIAGNOSTIC IMAGING ORDERAB LES Final Result from Last 3 Months Insurance [facility] [id number] OUT OF NETWORK Member Subscriber Plan / Payer (Ef fective 2024-Present) Name:MinervaFloydTimo Relation to Subscriber:Self Name:Timo Palma Payer ID:[id number] (NAIC) Type:EPO Address: [place] [id number] [place] [id number]
--- OUTSIDE RECORDS SUMMARY | 2025-01-28 11:03 | XMS_ITS | Clinical Summary ---
Author Organization [facility] Address [address] [place] [address] Care Team Providers Care Desk Manager Name Role Phone Shannon Melgar MD Unavailable Unknown, Provider Primary Care Provider Unavaila ble Source Comments [facility],non-owned Affiliates and Associated Physician Practices is amultiple site organization consisting of ambulatory clinics and hospital sitesin [place], [place], [place] and [place]. This disclosure is being madepursuant to the Care Everywhere program and may not contain all information available regarding this patient. 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 > Interpreting Provider: Bairon Matos on 11/27/2024 8:35 PM Narrative 11/27/2024 8:35 PM CDT PROCEDURE: US ELASTOGRAPHY, DATE/TIME OF EXAM: 11/27/2024 3:59 PM, LOCATION [facility] INDICATION: K74.60: Cirrhosis of liver without [...] DATE/TIME OF EXAM: 11/27/2024 3:59 PM, LOCATION [facility] INDICATION: K74.60: Cirrhosis of liver without [...] Ramírez 11/27/2024 4:47 PM > Dictated by Graphics Edit Technician I, Bairon Matos have personally reviewed and interpreted this examination/study. > Interpreting Provider: Bairon Matos on 11/27/2024 8:35 PM us Shannon Melgar MD ORDERABLES Final Result from Last 3 Months Insurance [facility] [place] [address] Care Teams Desk Manager Relationship Specialty Start Date End Date Shannon Melgar MD [address] [address] PCP - Attributed-[facility] 05/18/24 Unknown, Provider PCP - General 07/09/24
== END 2025-01-28 09:44 | disposition home or self-care (01) ==
PROVIDERS: PCP Internal Medicine
DX: S46.102A Unspecified injury of muscle, fascia and tendon of long head of biceps, left arm, initial encounter (principal); X58.XXXA Exposure to other specified factors, initial encounter; M19.012 Primary osteoarthritis, left shoulder; M75.22 Bicipital tendinitis, left shoulder
CPT/HCPCS: 73221

== ENCOUNTER 2025-02-14 01:12 | Day surgery (SDC) | payer OTHER, SELFPAY ==
[2025-02-06 14:56] VITALS: BMI 27.5
--- NOTE | 2025-02-06 15:29 | PC.NURSE ---
Spoke with patient regarding medication Eliquis. Patient verbalizes understanding that the last dose is to be taken on 02/10/2025 and the Endoscopist will instruct them when to restart after the procedure.
--- OUTSIDE RECORDS SUMMARY | 2025-02-14 01:15 | XMS_ITS | Clinical Summary ---
Author Organization [facility] Address [address] [place] [phone] Phone Care Team Providers Care Webmethods Consultant Name Role Phone Unavailable Primary Care Provider Unavailabl e Encounters Date Type Department Care Team Description 02/12/2025 External Device Data [facility] ABSTRACTION Provider, Abstract 01/07/2025 External Device Data [facility] ABSTRACTION Provider, Abstract 01/07/2025 External Device Data [facility] ABSTRACTION Provider, Abstract 01/07/2025 External Device Data [facility] ABSTRACTION Provider, Abstract 01/02/2025 9:55 AM CDT - 01/02/2025 11:59 PM CDT Hospital Encounter [facility] [address] [phone] Howard Huffman MD Discharge Disposition: Home or [...] VACCINE (60+ or ) (1 - Risk 50-74 years 1-dose series) 2006 ZOSTER VACCINE (2 of 3) 06/13/2017 04/18/2017 DIABETES HBA1C Q 6 MONTHS 07/31/2024 01/31/2024, 03/2023 INFLUENZA VACCINE (#1) 2024 , 02/19/2022, 01/18/2020 COVID-19 Vaccine (2024-2 6 season) [...] Final Result from Last [address] [facility] [id number] OUT OF NETWORK Member Subscriber Plan / Payer (Ef fective 2024-Present) Name:Timo Palma Relation to Subscriber:Self Name:Timo Palma Payer ID:[id number] (NAIC) Type:EPO Address: [place] [id number] [place] [id number]
--- OUTSIDE RECORDS SUMMARY | 2025-02-14 01:15 | XMS_ITS | Encounter Summary ---
Author Organization [employer] Address [address] [place] [address] Care Team Providers Care Numerical Control Machine Operator Name Role Phone Unavailable Primary Care Provider Unavailabl e Encounter Details Date Type Department Care Team (Late st Contact Info) Description 02/12/2025 External Device Data [facility] ABSTRACTION Provider, Abstract NO ADDRESS ON FILE Social History Tobacco Use Types Packs/Day Years Used Date Smoking Tobacco: Never Assessed Sex and Gender Information Value Date Recorded Sex Assigned at Not on file Legal Sex Male 9:48 AM CDT Gender Identity Not on file Sexual Orientation Not on file documented as of this encounter Plan of Treatment Not on file documented as of this encounter Visit Diagnoses Not on filedocumented in this encounter
--- OUTSIDE RECORDS SUMMARY | 2025-02-14 01:15 | XMS_ITS | Encounter Summary ---
Author Organization [facility] Address [facility] [place] [address] Care Team Providers Care Legal Practice Manager Name Role Phone Shannon Melgar MD Primary Care Provider [phone] El Cook MD Unavailable Luh Santoyo DO Primary Care Provider [phone] Encounter Details Date Type Department Care Team (Late st Contact Info) Description 07/03/2024 Therapy Plan [facility] Physical Therapy [address] [place] [address] Anila Gibbons, PT [facility] [place] [address] Social History Tobacco Use Types Packs/Day Years [...] Sex Assigned at Male 05/02/2024 1:46 PM BEST SECOND JOBS Legal Sex Male 2:51 PM BEST SECOND JOBS Gender Identity Male 06/04/2024 4:19 PM BEST SECOND JOBS Sexual Orientation Straight 06/04/2024 4: 19 PM BEST SECOND JOBS documented as of this encounter Plan of Treatment Upcoming Encounters Date Type Department Care Team (Late st Contact Info) Description 03/17/2025 8:00 AM BEST SECOND JOBS Office Visit [facility] [id number] [place] [address] Luh Santoyo, DO 3 [facility]. [address] [place] [address] 04/21/2025 1:30 PM BEST SECOND JOBS Office Visit [facility] [address] [place] [address] Timo Hanna MD Three [facility] [address] [place] [address] 04/22/2025 10:30 AM BEST SECOND JOBS Office Visit [facility] [address] [facility] [address] [place] [address] Dione Duke PA 3 [facility] [address] [place] [address] 08/04/2025 3:00 PM CDT Office Visit [facility] Internal [address] [place] [address] Luh Santoyo, DO 3 [facility] [place] [address] documented as of this encounter Visit Diagnoses Not on filedocumented in this encounter Additional Health Concerns Assessment Noted Time PHQ-9 Depression Total Score: 2 06/04/19 25 5:17 PM BEST SECOND JOBS documented as of this encounter Care Teams Legal Practice Manager Relationship Specialty Start Date End Date Shannon Melgar MD [address] [address] PCP - General INTERNAL MEDICINE 08/01/23 02/02/25 Luh Santoyo DO [address] [place], [place] [phone] PCP - General FAMILY PRACTICE 02/03/25 El Cook MD [address] [phone] UNKNOWN PHYSICIAN SPECIALTY 01/15/24 documented as of this encounter
--- OUTSIDE RECORDS SUMMARY | 2025-02-14 01:15 | XMS_ITS | Encounter Summary ---
Author Organization [facility] Address [facility] [place] [address] Care Team Providers Care Teenage Babysitter Name Role Phone Shannon Melgar MD Primary Care Provider [phone] El Cook MD Unavailable Luh Santoyo DO Primary Care Provider [phone] Encounter Details Date Type Department Care Team (Latest Contact Info) Description 10/18/2023 Nazart Message Enc [facility] Medical Group Multispecialty Care [place] [address] [place] [address] [address] [place] [address] Shannon Melgar MD [address] [facility] [address] [place] [address] Atrial fibulation Social History Tobacco [...] Sex Assigned at Male 05/02/2024 1:46 PM SPECIAL EDUCATION DIRECTOR Legal Sex Male 2:51 PM SPECIAL EDUCATION DIRECTOR Gender Identity Male 06/04/2024 4:19 PM SPECIAL EDUCATION DIRECTOR Sexual Orientation Straight 06/04/2024 4: 19 PM SPECIAL EDUCATION DIRECTOR documented as of this encounter Plan of Treatment Upcoming Encounters Date Type Department Care Team (Late st Contact Info) Description 03/17/2025 8:00 AM SPECIAL EDUCATION DIRECTOR Office Visit [facility] [address] [place] [address] Luh Santoyo, DO 3 [facility] [place] [address] 04/21/2025 1:30 PM SPECIAL EDUCATION DIRECTOR Office Visit [facility] [address] [facility] [address] [place] [address] Timo Hanna MD Three [facility] [address] [place] [address] 04/22/2025 10:30 AM SPECIAL EDUCATION DIRECTOR Office Visit [facility] THREE [facility] [place] [address] Dione Duke PA 3 [facility] [address] [place] [address] 08/04/2025 3:00 PM CDT Office Visit [facility] [address] [place] [address] Luh Santoyo, DO 3 [facility]. [address] [place] [address] documented as of this encounter Visit Diagnoses Not on filedocumented in this encounter Additional Health Concerns Assessment Noted Time PHQ-9 Depression Total Score: 6 08/01/19 24 4:28 PM CDT documented as of this encounter Care Teams Teenage Babysitter Relationship Specialty Start Date End Date Shannon Melgar MD [address] [address] PCP - General INTERNAL MEDICINE 08/01/23 02/02/25 Luh Santoyo DO [address] [place], [place] [phone] PCP - General FAMILY PRACTICE 02/03/25 El Cook MD [address] [phone] UNKNOWN PHYSICIAN SPECIALTY 01/15/24 documented as of this encounter
--- OUTSIDE RECORDS SUMMARY | 2025-02-14 01:15 | XMS_ITS | Encounter Summary ---
Author Organization [facility] Address [facility] [place] [address] Care Team Providers Care Dining Room Coordinator Name Role Phone Shannon Melgar MD Primary Care Provider [phone] El Cook MD Unavailable Luh Santoyo DO Primary Care Provider [phone] Reason for Referral * Consultation (Urgent) - Authorized Specialty Diagnoses / Procedures Referred By Naldo avila Referred To Contact Hepatology Diagnoses Cirrhosis of liver without ascites, unspecified hepatic cirrhosis type (CMS/HCC HHS/HCC) Procedures OFFICE/OUTPATIENT NEW LOW MDM 30-44 MINUTES OFFICE/OUTPT VISIT,NEW,LEVL IV OFFICE/OUTPT VISIT,NEW,LEVL V OFFICE/OUTPT VISIT,EST,LEVL III OFFICE/OUTPT VISIT,EST,LEVL IV OFFICE/OUTPT VISIT,EST,LEVL V Shannon Melgar MD [address] [facility] [address] [place] [address] Phone: tel: fax: [facility] - Gastroenterology [address] [facility] [address] [place] [address] Phone: tel: fax: Referral ID Status Reason Start Date Expiration Date Visits Requested Visits Authorized [id number] Authorized Specialty Services 01/06/2025 01/06/2026 99 99 Encounter Details Date Type Department Care Team (Latest Contact Info) Description 01/06/2025 Results Follow-Up [facility] Medical Group Multispecialty Care - [place] [address] [place] [address] [address] [address] [place] [address] Shannon Melgar MD [address] [facility] [address] [place], [place] [phone] ANTINUCLEAR ANTIBODY WI RFX (AURA), MAGNESIUM, CBC [...] Sex Assigned at Male 05/02/2024 1:46 PM MUD ENGINEER Legal Sex Male 2:51 PM MUD ENGINEER Gender Identity Male 06/04/2024 4:19 PM MUD ENGINEER Sexual Orientation Straight 06/04/2024 4: 19 PM MUD ENGINEER documented as of this encounter Progress Notes * Prachi Malloy MA - 01/07/2025 1:49 PM CDT ----- Message from Dr. Shannon Melgar sent at 01/06/2025 6:30 PM CDT ----- Kindly reach out to this patient. Kidney function has not shown any improvement. This will need to be closely monitored though his numbers remain stable. His liver numbers however still elevated. I would recommend following very closely with his liver doctor for the cirrhosis of the liver. I have placed a referral for him to establish with a honeycomb blanket maker if he does not currently have one. It is very important that we have a specialist on board to help with his cirrhosis of the liver. Please provide him with a referral number. Thanks. ----- Message ----- From: User, [email or web address] Sent: 01/03/2025 7:49 PM CDT To: Shannon Melgar MD documented in this encounter Plan of Treatment Upcoming Encounters Date Type Department Care Team (Late st Contact Info) Description 03/17/2025 8:00 AM MUD ENGINEER Office Visit [facility] Family [facility] Internal Medicine [address] [phone] Luh Santoyo, DO 3 [facility] [address] [place], [place] [address] 04/21/2025 1:30 PM MUD ENGINEER Office Visit [facility] [phone] [facility] [address] [place] [address] Timo Hanna MD Three [facility] [address] [place], [place] [id number] 04/22/2025 10:30 AM MUD ENGINEER [facility] THREE [facility], [address] [place], [place] [address] Dione Duke PA 3 [facility] [address] [place] [address] 08/04/2025 3:00 PM CDT Office Visit [facility] Family & Internal [address] [phone] Luh Santoyo, DO 3 [facility] [place], [place] [phone] Scheduled Referrals Name Type Priority Associated Diagnoses [...] documented as of this encounter Care Teams Dining Room Coordinator Relationship Specialty Start Date End Date Shannon Melgar MD [address] [address] PCP - General INTERNAL MEDICINE 08/01/23 02/02/25 Luh Santoyo DO [address] [place] [address] PCP - General FAMILY PRACTICE 02/03/25 El Cook MD [address] [place] [address] UNKNOWN PHYSICIAN SPECIALTY 01/15/24 documented as of this encounter
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
--- OUTSIDE RECORDS SUMMARY | 2025-02-14 01:15 | XMS_ITS | Encounter Summary ---
Author Organization [facility] Address On license of [facility] [place] [address] Care Team Providers Care Water Reuse Program Manager Name Role Phone Shannon Melgar MD Primary Care Provider [phone] El Cook MD Unavailable Luh Santoyo DO Primary Care Provider Encounter Details Date Type Department Care Team (Late st Contact Info) Description 06/21/2024 TASS Message Enc [facility] Medical Group Multispecialty Care - [address] [place] [address] [employer], [facility] Provider lab results Social History Tobacco [...] Sex Assigned at Male 05/02/2024 1:46 PM ADULT NEUROLOGIST Legal Sex Male 2:51 PM ADULT NEUROLOGIST Gender Identity Male 06/04/2024 4:19 PM ADULT NEUROLOGIST Sexual Orientation Straight 06/04/2024 4: 19 PM ADULT NEUROLOGIST documented as of this encounter Plan of Treatment Upcoming Encounters Date Type Department Care Team (Late st Contact Info) Description 03/17/2025 8:00 AM ADULT NEUROLOGIST Office Visit [facility] Family & Internal Medicine [address] [address] Luh Santoyo, DO 3 [facility]. [address] [place], [place] [address] 04/21/2025 1:30 PM ADULT NEUROLOGIST Office Visit [facility] [address] [address] Timo Hanna MD Three [facility] [address] [place], [place] [phone] 04/22/2025 10:30 AM ADULT NEUROLOGIST Office Visit [facility] [address] [place], [place] [address] Dione Duke PA 3 Health system [address] [place], [place] [address] 08/04/2025 3:00 PM CDT Office Visit [facility] Family & Internal [address] [address] Luh Santoyo, DO 3 [facility]. [address] [place], [place] [address] documented as of this encounter Visit Diagnoses Not on filedocumented in this encounter Additional Health Concerns Assessment Noted Time PHQ-9 Depression Total Score: 2 06/04/19 25 5:17 PM ADULT NEUROLOGIST documented as of this encounter Care Teams Water Reuse Program Manager Relationship Specialty Start Date End Date Shannon Melgar MD [address] [address] PCP - General INTERNAL MEDICINE 08/01/23 02/02/25 Luh Santoyo DO [address] [place] [address] PCP - General FAMILY PRACTICE 02/03/25 El Cook MD [address] [phone] UNKNOWN PHYSICIAN SPECIALTY 01/15/24 documented as of this encounter
--- OUTSIDE RECORDS SUMMARY | 2025-02-14 01:15 | XMS_ITS | Clinical Summary ---
Author Organization [facility] Address [address], [facility] [address] [place] [address] Phone Care Team Providers Care Finisher Cold Rolling Name Role Phone Luh Santoyo DO Primary Care Provider [phone] López Lind MD Unavailable [phone] Social History Tobacco Use Types Packs/Day Years Used Date Smoking Tobacco: Never Assessed Sex and Gender Information Value Date Recorded Sex Assigned at Not on file Legal Sex Male 12:21 PM CDT Gender Identity Not on file Sexual Orientation Not on file Plan of Treatment Upcoming Encounters Date Type Department Care Team (Late st Contact Info) Description 02/17/2025 1:30 PM RADIO BROADCASTER Office Visit [facility] [address] [address] López Lind MD [address] [facility] [place] [address] Insurance MEDICA Care Teams Finisher Cold Rolling Relationship Specialty Start Date End Date Luh Santoyo DO [address] [address] PCP - General Family Medicine 02/07/25 López Lind MD [address] [place] [phone] Consulting Physician Oncology 02/07/25
--- OUTSIDE RECORDS SUMMARY | 2025-02-14 01:15 | XMS_ITS | Clinical Summary ---
Author Organization [facility] Address [address] [place] [address] Care Team Providers Care Inspector Clip On Sunglasses Name Role Phone Shannon Melgar MD Unavailable Unknown, Provider Primary Care Provider Unavaila ble Source Comments [facility],non-owned Affiliates and Associated Physician Practices is amultiple site organization consisting of ambulatory clinics and hospital sitesin [place], [place], [place] and [place]. This disclosure is being madepursuant to the Care Everywhere program and may not contain all information available regarding this patient. Last updated 18.[facility] Encounters Date Type Department Care Team Description 11/27/2024 3:15 PM CDT - 11/27/2024 11:59 PM CDT Hospital Encounter [address] [address] Shannon Melgar MD Discharge Disposition: Home or Self Care 11/27/2024 Travel from Last 3 Months Social History Tobacco Use Types Packs/Day Years Used Date Smoking Tobacco: Never Assessed Sex and Gender Information Value Date Recorded Sex Assigned at Male 06/18/2024 8:32 AM CORPORATE GENERAL MANAGER Legal Sex Male 8:32 AM CORPORATE GENERAL MANAGER Gender Identity Male 06/18/2024 8:32 AM CORPORATE GENERAL MANAGER Sexual Orientation Not on file Plan of [...] Ramírez 11/27/2024 4:47 PM > Dictated by Radio Station Engineer I, Bairon Matos have personally reviewed and interpreted this examination/study. > Interpreting Provider: Bairon Matos on 11/27/2024 8:35 PM Narrative 11/27/2024 8:35 PM CDT PROCEDURE: US ELASTOGRAPHY, DATE/TIME OF EXAM: 11/27/2024 3:59 PM, LOCATION [facility] INDICATION: K74.60: Cirrhosis of liver without [...] EXAM: 11/27/2024 3:59 PM, LOCATION [facility] INDICATION: K74.60: Cirrhosis of liver without [...] Ramírez 11/27/2024 4:47 PM > Dictated by Radio Station Engineer I, Bairon Matos have personally reviewed and interpreted this examination/study. > Interpreting Provider: Bairon Matos on 11/27/2024 8:35 PM us Shannon Melgar MD ORDERABLES Final Result from Last 3 Months Insurance [facility] Care Teams Inspector Clip On Sunglasses Relationship Specialty Start Date End Date Shannon Melgar MD [address] [address] PCP - Attributed-[facility] EHP STL 05/18/24 Unknown, Provider PCP - General 07/09/24
[2025-02-14 09:06] VITALS: BP 133/100; PULSE 103; RESP 20; TEMP 36.2; O2SAT 99
[2025-02-14] MEDS: LACTATED RINGERS 1,000 ML 150 ML IV CONT (09:24)
--- NOTE | 2025-02-14 09:30 | PM.IMHP ---
H&P: HPI History of Present Illness Date/Time: 02/14/25 09:30 Chief Complaint: History of colon polyps-dyspepsia Narrative: Patient referred for EGD and colonoscopy. He has transient intermittent dyspepsia for several months. In addition, he has a history of colon polyps, last colonoscopy 7 years ago. Review of Systems Review of Systems: All systems reviewed & are unremarkable except as noted in HPI and below PMFSH Past Medical History Medical History Von willebrand disease, type 1 PTSD (post-traumatic stress disorder) Depression Anxiety Type 2 diabetes mellitus Anemia Kidney stones Diverticulitis Sleep apnea HTN (hypertension) HLD (hyperlipidemia) Atrial fibrillation Surgical History Surgical History History of cardiac ablation for atrial fibrillation Social History Social History Smoking status: Never smoker Alcohol intake: current Drinks per week: 1 Substance use: never Substance use type: does not use Lack of Transportation: No Lack of Food: Never True Current Housing: I Have Housing Concerned About Future Housing: No Difficulty Paying Gas/Electric Bills: No Difficulty Paying for Meds: No Currently Unemployed: No Education: Master's Degree or Higher Difficulty w/ Childcare or Family Care: No Living arrangements: with family Spiritual care concerns: No Meds Home Medications and Allergies Home Medications ?Medication ?Instructions ?Recorded ?Confirmed ?Type apixaban 5 mg tablet (Eliquis) 5 mg PO Q12H 12/18/24 02/14/25 History carvedilol 6.25 mg tablet 6.25 mg PO Q12H 12/18/24 02/14/25 History ergocalciferol (vitamin D2) 1,250 1,250 mcg PO DAILY 12/18/24 02/14/25 History mcg (50,000 unit) capsule lactulose 10 gram/15 mL oral 30 ml PO HS PRN constipation 12/18/24 02/06/25 History solution (Constulose) lisinopril 10 mg tablet 10 mg PO DAILY 12/18/24 02/06/25 History magnesium glycinate 100 mg (as 100 mg PO DAILY 12/18/24 02/14/25 History glycinate) tablet (Mag Glycinate) metformin 500 mg tablet 500 mg PO HS 12/18/24 02/06/25 History multivitamin (Daily Multi-Vitamin 1 tablet PO DAILY 12/18/24 02/14/25 History tablet) rosuvastatin 20 mg tablet 20 mg PO HS 12/18/24 02/14/25 History tirzepatide 10 mg/0.5 mL 12.5 mg subcut WEEKLY 12/18/24 02/14/25 History subcutaneous pen injector (Mounjaro) tramadol 50 mg tablet 50 mg PO DAILY PRN pain 12/18/24 02/06/25 History venlafaxine 150 mg 75 mg PO BID 12/18/24 02/06/25 History capsule,extended release 24 hr finerenone 10 mg tablet (Kerendia) 10 mg PO DAILY 02/06/25 02/14/25 History lisinopril 5 mg tablet 5 mg PO DAILY 02/06/25 02/14/25 History venlafaxine 75 mg capsule,extended 75 mg PO BID 02/06/25 02/14/25 History release 24 hr Allergies Allergy/AdvReac Type Severity Reaction Status Date / Time Sulfa (Sulfonamide Allergy Mild rash Verified 02/14/25 09:03 Antibiotics) Vital Signs Vital Signs - 24 hr 02/14/25 09:06 Temperature 97.2 F L Pulse Rate 103 H Respiratory Rate 20 Blood Pressure 133/100 H Pulse Oximetry 99 Oxygen Delivery Room Air Exam Const: General: cooperative and healthy appearing Resp: Effort & Inspection: normal respiratory effort and able to speak in complete sentences Auscultation: clear to auscultation bilaterally Cardio: Rate: regular rate Rhythm: regular rhythm GI: Inspection: normal to inspection GI Palp: No No hepatosplenomegaly present Auscultation: normal bowel sounds Rectal Exam: deferred Skin: General skin exam: normal color Psych: Appearance: grossly normal Mental Status: mental status grossly normal Assessment and Plan Assessment and plan (1) History of colonic polyps: Code(s): Z86.0100 - Personal history of colon polyps, unspecified Status: Acute Assessment and Plan: The patient is deemed a good candidate for the procedures. Consent signed. Will proceed.
--- NOTE | 2025-02-14 09:38 | WPDANESEPPF ---
Anes - Initial Pre Proc Eval Procedure: Operation Date: 02/14/25 10:00 Proposed Procedures p EGD & Screening Colonoscopy - Yohannes Victor MD Date/Time: 02/14/25 09:38 Surgeon: Yohannes Victor MD Pre Op Diagnosis: Unspecified cirrhosis of liver,screening Patient Data Age: 69 Gender: M Height: 1.78 m Weight: 86.2 kg Last Vital Signs Temp 97.2 F L 02/14/25 09:06 Pulse 103 H 02/14/25 09:06 Resp 20 02/14/25 09:06 BP 133/100 H 02/14/25 09:06 Pulse Ox 99 02/14/25 09:06 O2 Del Method Room Air 02/14/25 09:06 Allergies Allergy/AdvReac Type Severity Reaction Status Date / Time Sulfa (Sulfonamide Allergy Mild rash Verified 02/14/25 09:03 Antibiotics) Home Medications ?Medication ?Instructions ?Recorded ?Confirmed ?Type apixaban 5 mg tablet (Eliquis) 5 mg PO Q12H 12/18/24 02/14/25 History carvedilol 6.25 mg tablet 6.25 mg PO Q12H 12/18/24 02/14/25 History ergocalciferol (vitamin D2) 1,250 1,250 mcg PO DAILY 12/18/24 02/14/25 History mcg (50,000 unit) capsule lactulose 10 gram/15 mL oral 30 ml PO HS PRN constipation 12/18/24 02/06/25 History solution (Constulose) lisinopril 10 mg tablet 10 mg PO DAILY 12/18/24 02/06/25 History magnesium glycinate 100 mg (as 100 mg PO DAILY 12/18/24 02/14/25 History glycinate) tablet (Mag Glycinate) metformin 500 mg tablet 500 mg PO HS 12/18/24 02/06/25 History multivitamin (Daily Multi-Vitamin 1 tablet PO DAILY 12/18/24 02/14/25 History tablet) rosuvastatin 20 mg tablet 20 mg PO HS 12/18/24 02/14/25 History tirzepatide 10 mg/0.5 mL 12.5 mg subcut WEEKLY 12/18/24 02/14/25 History subcutaneous pen injector (Mounjaro) tramadol 50 mg tablet 50 mg PO DAILY PRN pain 12/18/24 02/06/25 History venlafaxine 150 mg 75 mg PO BID 12/18/24 02/06/25 History capsule,extended release 24 hr finerenone 10 mg tablet (Kerendia) 10 mg PO DAILY 02/06/25 02/14/25 History lisinopril 5 mg tablet 5 mg PO DAILY 02/06/25 02/14/25 History venlafaxine 75 mg capsule,extended 75 mg PO BID 02/06/25 02/14/25 History release 24 hr Laboratory Tests 02/14/25 09:15 POC Capillary Glucose 154 H mg/dl (65-105) Patient hx anesthesia problems: none Family hx anesthesia problems: none Results Review: All pre-operative results and documents have been reviewed as part of the pre-operative evaluation. [facility] Past Medical History Medical History Von willebrand disease, type 1 PTSD (post-traumatic stress disorder) Depression Anxiety Type 2 diabetes mellitus Anemia Kidney stones Diverticulitis Sleep apnea HTN (hypertension) HLD (hyperlipidemia) Atrial fibrillation Surgical History Surgical History History of cardiac ablation for atrial fibrillation Social History Social History Smoking status: Never smoker Alcohol intake: current Drinks per week: 1 Substance use: never Substance use type: does not use Lack of Transportation: No Lack of Food: Never True Current Housing: I Have Housing Concerned About Future Housing: No Difficulty Paying Gas/Electric Bills: No Difficulty Paying for Meds: No Currently Unemployed: No Education: Master's Degree or Higher Difficulty w/ Childcare or Family Care: No Living arrangements: with family Spiritual care concerns: No Anes - Eval Final PreProcedure Day of Procedure 02/14/25 09:38 Patient weight: normal Lungs: normal air movement Airway: Mallampati scale class II Neurological: alert and oriented Last oral intake: >/= 8 hours ASA classification: III Emergent: no Anesthetic plan: proceed Anesthesia type and monitoring: general GIVS and standard monitoring Results Review: All pre-operative results and documents have been reviewed as part of the pre-operative evaluation. Pt w hx of afib, s/p ablation w success, now NSR, von will type 1, HTN, hyperlipdemia, EDDI. Active, no cp or sob w 4 METS. ECHO 2024 w nml LVEF, no . Informed Consent: The patient's anesthetic plan and its attendant risks and benefits were discussed with the patient/family/POA. Questions were solicited and answers provided to the satisfaction of the patient/family/POA.
--- NOTE | 2025-02-14 09:57 | S_PTH ---
PATIENT: Timo Palma LOC: JIMMY #:[id number] AGE/SX: 69/M ROOM: RE02/14/[address]: Yohannes Victor MD : [id number] BED: DIS: 02/14/2025 SPEC #: [id number] RECD: 02/14/25 11:23 STATUS: SUZETTE REQ #: [id number] WINSOME: 02/14/25 09:[address]: Yohannes Victor DEPT: [facility] Surgical RECD BY: Kamila Prieto Tissues: A - Gastric Biopsy B - Gastric Biopsy C - Colon Polypectomy Procedures: Hematoxylin and Eosin Stain Gross and Microscopic Level 4
--- NOTE | 2025-02-14 09:58 | SUR.OPER ---
EGD ended at 956. Colonoscopy started at 1004.
[2025-02-14 10:29] VITALS: BP 98/65; PULSE 90; RESP 22; O2SAT 98
[2025-02-14 10:39] VITALS: BP 99/65; PULSE 90; RESP 14; O2SAT 99
[2025-02-14 10:49] VITALS: BP 107/82; PULSE 80; RESP 20; O2SAT 97
== END 2025-02-14 11:38 | disposition home or self-care (01) ==
PROVIDERS: Referring Provider Internal Medicine; Visit Provider Internal Medicine Gastroenterology
PROC: 0DJ08ZZ Inspection of Upper Intestinal Tract, Via Natural or Artificial Opening Endoscopic (ICD-10-PCS; CPT 45378; principal; 2025-02-14 10:00)
DX: Z12.11 Encounter for screening for malignant neoplasm of colon (principal); D12.2 Benign neoplasm of ascending colon; K57.30 Diverticulosis of large intestine without perforation or abscess without bleeding; K29.70 Gastritis, unspecified, without bleeding; K44.9 Diaphragmatic hernia without obstruction or gangrene
CPT/HCPCS: 45385; 43239; 82948; 88305; J2003; J2704; J7120

== ENCOUNTER 2025-02-28 09:00 | Outpatient (CLI) | payer OTHER, SELFPAY ==
--- OUTSIDE RECORDS SUMMARY | 2025-02-27 14:30 | XMS_ITS | Encounter Summary ---
Author Organization [facility] Address [address] [place] [address] Phone Care Team Providers Care Compressed Yeast Supervisor Name Role Phone Luh Santoyo DO Primary Care Provider [phone] López Lind MD Unavailable [phone] Reason for Visit * Reason Comments New Patient * Consultation (Routine) - Open Specialty Diagnoses / Procedures Referred By Naldo t Referred To Contact Oncology Diagnoses VWD (acquired von Willebrand's disease) Luh Santoyo DO [address] [address] Phone: tel: fax: López Lind MD [address] [place] [phone] Phone: tel: fax: Referral ID Status Reason Start Date Expiration Date Visits Re quested Visits Authorized [id number] Open 1 1 Encounter Details Date Type Department Care Team (Late st Contact Info) Description 02/27/2025 2:30 PM LEGAL RESEARCH ANALYST Office Visit [facility] [address] [address] López Lind MD [address] [facility] 2 [place] [address] Von Willebrand disease (Primary Dx) Social History Tobacco Use Types Packs/Day Years Used Date Smoking Tobacco: Never Smokeless Tobacco: Never Tobacco Cessation:Counseling Given: Not Answered Alcohol Use Standard Drinks/Week Comments Yes 0 (1 standard drink = 0.6 oz pur e alcohol) socially Sex and Gender Information Value Date Recorded Sex Assigned at Not on file Legal Sex Male 12:21 PM CDT Gender Identity Not on file Sexual Orientation Not on file documented as of this encounter Last Filed Vital Signs Vital Sign Reading Time Taken Comments Blood Pressure 125/70 02/27/2025 3:19 PM LEGAL RESEARCH ANALYST Pulse 66 02/27/2025 3:19 PM LEGAL RESEARCH ANALYST Temperature 36.8 C (98.3 F) 02/27/2025 3:19 PM LEGAL RESEARCH ANALYST Respiratory Rate - - Oxygen Saturation 98% 02/27/2025 3:19 PM LEGAL RESEARCH ANALYST Inhaled Oxygen Concentration - - Weight 86.9 kg (191 lb 9.6 oz) 02/27/2025 3:19 P M LEGAL RESEARCH ANALYST Height 177.8 cm (5' 10) 02/27/2025 3:19 PM LEGAL RESEARCH ANALYST Body Mass Index 27.49 02/27/2025 3:19 PM LEGAL RESEARCH ANALYST documented in this encounter Plan of Treatment Upcoming Encounters Date Type Department Care Team (Late st Contact Info) Description 03/20/2025 2:00 PM LEGAL RESEARCH ANALYST Office [facility] [address] [address] López Lind MD [address] [facility] [address] [address] [place] [address] Pending Results Name Type Priority Associated Diagnoses Date /Time COMPLETE BLOOD COUNT (CBC) WITH DIFF Lab Routine Von Willebrand disease 02/27/2025 3:48 PM LEGAL RESEARCH ANALYST [place] [address] Lab Routine Von Willebrand disease 02/27/2025 3:48 PM LEGAL RESEARCH ANALYST Scheduled Orders Name Type Priority Associated Diagnoses Orde r [place] [address] Lab Routine Von Willebrand disease Expected: 02/27/2025, Expires: 03/29/2025 documented as of this encounter Results * LACTATE DEHYDROGENASE (LD) (02/27/2025 3:48 PM LEGAL RESEARCH ANALYST) LDH 199 140 - 271 U/L [facility] Blood 02/27/2025 3:48 PM LEGAL RESEARCH ANALYST [facility] - 02/28/2025 8:51 AM LEGAL RESEARCH ANALYST Release to patient->Immediate López Lind MD CHEMISTRY ORDERABLES Final R esult [facility] [address] [place] [address], * APTT (PTT) (02/27/2025 3:48 PM LEGAL RESEARCH ANALYST) APTT 26 24 - 33 SEC [facility] Comment: THIS TEST HAS NOT BEEN VALIDATED FOR MONITORING UNFRACTIONATED HEPARIN THERAPY. APTT-BASED THERAPEUTIC RANGES FOR UNFRACTIONATED HEPARIN THERAPY HAVE NOT BEEN ESTABLISHED. FOR GENERAL GUIDELINES ON HEPARIN MONITORING, REFER TO THE [facility] DIRECT[facility] SERVICES. Blood 02/27/2025 3:48 PM LEGAL RESEARCH ANALYST [facility] - 02/28/2025 8:08 AM LEGAL RESEARCH ANALYST TESTING PERFORMED AT: [] [facility], [address] [place] [address], [place], [address], PHONE: [phone], LOGGING SHOVEL OPERATOR: HOLGER PINEDA, PHD Release to patient->Immediate us López Lind MD HEMATOLOGY ORDERABLES Final Result Performing Organization Address City/[facility]/ZIP Co de Phone Number [facility] [place] [address] [place] [address], [place] [phone] documented in this encounter Visit Diagnoses Diagnosis Von Willebrand disease- Primary Von Willebrand's disease Von Willebrand disease Von Willebrand's disease documented in this encounter Care Teams Compressed Yeast Supervisor Relationship Specialty Start Date End Date Luh Santoyo DO 3 [facility], [address] [address] PCP - General Family Medicine 02/07/25 López Lind MD [address] [place] [phone] Consulting Physician Oncology 02/07/25 documented as of this encounter
--- OUTSIDE RECORDS SUMMARY | 2025-02-27 14:45 | XMS_ITS | Encounter Summary ---
Author Organization [facility] Address [address] [place] [address] Phone Care Team Providers Care Tobacco Stripper Hand Name Role Phone Luh Santoyo Primary Care Provider [phone] López Lind MD Unavailable [phone] Encounter Details Date Type Department Care Team (Late st Contact Info) Description 02/27/2025 2:45 PM PHYSICAL THERAPY MANAGER Lab [facility] [address] [address] Lab, [facility] Von Willebrand disease Social History Tobacco Use Types Packs/Day Years Used Date Smoking Tobacco: Never Smokeless Tobacco: Never Alcohol Use Standard Drinks/Week Comments Yes 0 [...] st Contact Info) Description 03/20/2025 2:00 PM PHYSICAL THERAPY MANAGER Office Visit [facility] [address] [address] López Lind MD [address] [address] Pending Results Name Type Priority Associated Diagnoses Date /[place] [address] Lab Routine Von Willebrand disease 02/27/2025 3:48 PM PHYSICAL THERAPY MANAGER COMPLETE BLOOD COUNT (CBC) WITH DIFF Lab Routine Von Willebrand disease 02/27/2025 3:48 PM PHYSICAL THERAPY MANAGER documented as of this encounter Procedures Procedure Name Priority Date/Time Associated Diagnosis Comments APTT (PTT) Routine 02/27/2025 3:48 PM PHYSICAL THERAPY MANAGER Von Willebrand disease LACTATE DEHYDROGENASE (LD) Routine 02/27/2025 3:48 PM PHYSICAL THERAPY MANAGER Von Willebrand disease COMPLETE BLOOD COUNT (CBC) WITH DIFF Routine 02/27/2025 3:48 PM PHYSICAL THERAPY MANAGER Von Willebrand disease documented in this encounter Results * APTT (PTT) (02/27/2025 3:48 PM PHYSICAL THERAPY MANAGER) APTT 26 24 - 33 SEC [facility] ADVIS[facility] Comment: THIS TEST HAS NOT BEEN VALIDATED FOR MONITORING UNFRACTIONATED HEPARIN THERAPY. APTT-BASED THERAPEUTIC RANGES FOR UNFRACTIONATED HEPARIN THERAPY HAVE NOT BEEN ESTABLISHED. FOR GENERAL GUIDELINES ON HEPARIN MONITORING, REFER TO THE [facility] DIRECTORY OF SERVICES. Blood 02/27/2025 3:48 PM PHYSICAL THERAPY MANAGER [facility] - 02/28/2025 8:08 AM PHYSICAL THERAPY MANAGER TESTING PERFORMED AT: [] [facility], [address] [place] [address], [address], PHONE: [phone], EXECUTIVE SERVICES ADMINISTRATOR: HOLGER PINEDA, PHD Release to patient->Immediate López Lind MD HEMATOLOGY ORDERABLES Final Result [facility] ADVIS[facility] [place] [address], * LACTATE DEHYDROGENASE (LD) (02/27/2025 3:48 PM PHYSICAL THERAPY MANAGER) LDH 199 140 - 271 U/L [facility]FORMAT[facility] ADVIS[facility] Blood 02/27/2025 3:48 PM PHYSICAL THERAPY MANAGER [facility] HEALTH INFORMATICS ADVISOR [facility] - 02/28/2025 8:51 AM PHYSICAL THERAPY MANAGER Release to patient->Immediate us López Lind MD CHEMISTRY ORDERABLES Final R esult [facility] [place] [address], documented in this encounter Visit Diagnoses Diagnosis Von Willebrand disease Von Willebrand's disease documented in this encounter Care Teams Tobacco Stripper Hand Relationship Specialty Start Date End Date Luh Santoyo DO [address] [address] PCP - General Family Medicine 02/07/25 López Lind MD [address] [place] [phone] Consulting Physician Oncology 02/07/25 documented as of this encounter
--- OUTSIDE RECORDS SUMMARY | 2025-02-28 09:33 | XMS_ITS | Encounter Summary ---
Author Organization [facility] Care Team Providers Care Baseball Umpire [employer] Little [employer] Name Role Phone Luh Santoyo DO Primary Care Provider [phone] López Lind MD Unavailable [phone] Encounter Details Date Type Department Care Team (Latest Contact Info) Description 02/27/2025 Travel Social History Tobacco Use Types Packs/Day Years [...] st Contact Info) Description 03/20/2025 2:00 PM MANAGER TITLE Office Visit [facility] [address] [address] López Lind MD [facility] 2 [place], [place] [address] documented as of this encounter Visit Diagnoses Not on filedocumented in this encounter Care Teams Baseball [employer] Relationship Specialty Start Date End Date Luh Santoyo DO [address] [place] [address] PCP - General Family Medicine 02/07/25 López Lind MD [address] [place] [phone] Consulting Physician Oncology 02/07/25 documented as of this encounter
--- OUTSIDE RECORDS SUMMARY | 2025-02-28 09:33 | XMS_ITS | Clinical Summary ---
Author Organization [facility] Address [address] [facility] [place] [address] Care Team Providers Care Clinical Genetics Laboratory Chief Name Role Phone Shannon Melgar MD Unavailable Unknown, Provider Primary Care Provider Unavaila ble Source Comments [facility],non-owned Affiliates and Associated Physician Practices is amultiple site organization consisting of ambulatory clinics and hospital sitesin [place], [place], [place] and [place]. This disclosure is being madepursuant to the Care Everywhere program and may not contain all information available regarding this patient. Last updated 18.[facility] [employer] Social History Tobacco Use Types Packs/Day Years Used Date Smoking Tobacco: Never Assessed Sex and Gender Information Value Date Recorded Sex Assigned at Male 06/18/2024 8:32 AM IS/IT PROJECT MANAGER Legal Sex Male 8:32 AM IS/IT PROJECT MANAGER Gender Identity Male 06/18/2024 8:32 AM IS/IT PROJECT MANAGER Sexual Orientation Not on file Plan [...] on patient's age to complete this topic Insurance [facility] Care Teams Clinical Genetics Laboratory Chief Relationship Specialty Start Date End Date Shannon Melgar MD [address] [facility] [address] [place] [address] PCP - Attributed-[facility] EHP STL 05/18/24 Unknown, Provider PCP - General 07/09/24
--- OUTSIDE RECORDS SUMMARY | 2025-02-28 09:33 | XMS_ITS | Clinical Summary ---
Author Organization [facility] Address [address] [place] [address] Phone Care Team Providers Care Water Control Station Engineer Name Role Phone Unavailable Primary Care Provider Unavailabl e Encounters Date Type Department Care Team Description 02/12/2025 External Device Data STL ABSTRACTION Provider, Abstract 02/12/2025 External Device Data STL ABSTRACTION Provider, Abstract 01/07/2025 External Device Data STL ABSTRACTION Provider, Abstract 01/07/2025 External Device Data STL ABSTRACTION Provider, Abstract 01/07/2025 External Device Data STL ABSTRACTION Provider, Abstract 01/02/2025 9:55 AM CDT - 01/02/2025 11:59 PM CDT Hospital Encounter [facility] Services [address] [phone] Howard Huffman MD Discharge Disposition: Home or [...] Final Result from Last 3 Months Insurance [facility] [id number] OUT OF NETWORK Member Subscriber Plan / Payer (Ef fective 2024-Present) Name:Timo Palma Relation to Subscriber:Self Name:Timo Palma Payer ID:[id number] (NAIC) Type:EPO Address: [place] [id number] [place] [id number]
--- OUTSIDE RECORDS SUMMARY | 2025-02-28 09:33 | XMS_ITS | Clinical Summary ---
Author Organization [facility] Address [address], [facility] [address] [place] [address] Phone Care Team Providers Care Bending Frame Operator Name Role Phone Luh Santoyo Radha BURDICK Primary Care Provider [phone] López Lind MD Unavailable [phone] Allergies Active Allergy Reactions Criticality Noted Date Comments Sulfa Antibiotics Hives 01/13/2021 Other reaction(s): Unknown Medications Eliquis 5 MG Tablet Take 5 mg by mouth 2 times daily. 5 Active carvedilol (COREG) 6.25 MG Tablet Take 6.25 mg by mouth. 4 Active coenzyme q10 30 MG Capsule Take by mouth. Acti ve cyclobenzaprine (FLEXERIL) 10 MG Tablet Take 10 mg by mouth. 3 Active Farxiga 5 MG Tablet Take 5 mg by mouth daily. Active ergocalciferol (VITAMIN D) 32334 UNIT Capsule Take 1.25 mg by mouth once a week. 5 Active Kerendia 10 MG Tablet Take 10 mg by mouth daily. 5 Active hydrOXYzine (ATARAX) 25 MG Tablet Take 25 mg by mouth. 5 Active Constulose 10 GM/15ML Solution TAKE 30MLS BY MOUTH ONCE NIGHTLY NEEDED 5 Active lisinopril (PRINIVIL, ZESTRIL) 5 MG Tablet Take 5 mg by mouth daily. 5 Active magnesium oxide 420 MG Tablet Take by mouth. A ctive Multi Vitamin/Mineral s Tablet Take 1 Tablet by mouth daily. Active fish oil-omega-3 fatty acids 1000 MG Capsule Take 1,000 mg by mouth. Active rosuvastatin (CRESTOR) 20 MG Tablet Take 20 mg by mouth. 3 Active sildenafil citrate (VIAGRA) 100 MG Tablet Take 100 mg by mouth as needed. 5 Active Testosterone 1.62 % Gel 1 Application by Other route. 4 Active Mounjaro 12.5 MG/0.5ML Solution Auto-injector 12.5 mg by Subcutaneous route once a week. 5 Active traMADol (ULTRAM) 50 MG Tablet Take 50 mg by mouth. 5 Active venlafaxine (EFFEXOR-XR) 75 MG CAPSULE SR 24 HR TAKE TWO CAPSULES (150MG TOTAL) BY MOUTH ONE TIME EACH DAY. 4 Active Active Problems Problem Noted Date Diagnosed Date Von Willebrand disease Encounters Date Type Department Care Team Description 02/27/2025 2:45 PM DIRECTOR OF PLAYER PERSONNEL Lab [facility] [address] [address] Lab, [facility] Willebrand disease 02/27/2025 2:30 PM DIRECTOR OF PLAYER PERSONNEL Office Visit [facility] [address] [address] López Lind MD Von Willebrand disease (Primary Dx) 02/27/2025 Travel from Last 3 Months Family History Medical History Relation Name Comments Diabetes Father Heart Attack Father Hypertension Father Diabetes Mother Hypertension Mother Rashes/Skin Problems Sister briggs Sister Relation Name Status Comments Father Mother Sister Social History [...] on file Sexual Orientation Not on file Last Filed Vital Signs Vital Sign Reading Time Taken Comments Blood Pressure 125/70 02/27/2025 3:19 PM DIRECTOR OF PLAYER PERSONNEL Pulse 66 02/27/2025 3:19 PM DIRECTOR OF PLAYER PERSONNEL Temperature 36.8 C (98.3 F) 02/27/2025 3:19 PM DIRECTOR OF PLAYER PERSONNEL Respiratory Rate - - Oxygen Saturation 98% 02/27/2025 3:19 PM DIRECTOR OF PLAYER PERSONNEL Inhaled Oxygen Concentration - - Weight 86.9 kg (191 lb 9.6 oz) 02/27/2025 3:19 P M DIRECTOR OF PLAYER PERSONNEL Height 177.8 cm (5' 10) 02/27/2025 3:19 PM DIRECTOR OF PLAYER PERSONNEL Body Mass Index 27.49 02/27/2025 3:19 PM DIRECTOR OF PLAYER PERSONNEL Plan of Treatment Upcoming Encounters Date Type Department Care Team (Late st Contact Info) Description 03/20/2025 2:00 PM DIRECTOR OF PLAYER PERSONNEL Office Visit [facility] [address] [address] López Lind MD [address] [place] [address] [place], [place] [address] Health Maintenance Due Date Last Done Comments Cologuard 2001 Colonoscopy 2001 Colorectal Cancer Screening 2001 Immunochemical Fecal Occult Blood 2001 PSA Discussion 12/14/2011 Zoster Immunization (2 of 3) 06/13/2017 04/18/2017 SARS-COV-2 Immunization ( season) 2024 02/08/2024 TdaP Immunization Completed 12/24/2018, 06/15/2008 Hepatitis C Virus (HCV) Screening Completed 01/31/2024 Respiratory Syncytial Virus (RSV) Immunization (Adult) Completed 02/08/2024 Pneumococcal Immunization (5 0+ years) Completed 06/04/2024, 06/02/2021 Influenza Immunization Completed , 01/25/2024 Hepatitis B Immunization Aged Out No longer eligible based on patient's age to complete this topic Human Papillomavirus (HPV) Immunization Aged Out No longer eligible b ased on patient's age to complete this topic Meningococcal Immunization (ACWY) Aged Out No longer eligible b ased on patient's age to complete this topic Rotavirus Immunization Aged Out No lo nger eligible based on patient's age to complete this topic Procedures Procedure Name Priority Date/Time Associated Diagnosis Comments COMPLETE BLOOD COUNT (CBC) WITH DIFF Routine 02/27/2025 3:48 PM DIRECTOR OF PLAYER PERSONNEL Von Willebrand disease APTT (PTT) Routine 02/27/2025 3:48 PM DIRECTOR OF PLAYER PERSONNEL Von Willebrand disease LACTATE DEHYDROGENASE (LD) Routine 02/27/2025 3:48 PM DIRECTOR OF PLAYER PERSONNEL Von Willebrand disease from Last 3 Months Results * APTT (PTT) (02/27/2025 3:48 PM DIRECTOR OF PLAYER PERSONNEL) APTT 26 24 - 33 SEC [facility] Comment: THIS TEST HAS NOT BEEN VALIDATED FOR MONITORING UNFRACTIONATED HEPARIN THERAPY. APTT-BASED THERAPEUTIC RANGES FOR UNFRACTIONATED HEPARIN THERAPY HAVE NOT BEEN ESTABLISHED. FOR GENERAL GUIDELINES ON HEPARIN MONITORING, REFER TO THE [facility] DIRECT[facility] SERVICES. Blood 02/27/2025 3:48 PM DIRECTOR OF PLAYER PERSONNEL [facility] - 02/28/2025 8:08 AM DIRECTOR OF PLAYER PERSONNEL TESTING PERFORMED AT: [] [address], [address], PHONE: [phone], COLLOID MILL OPERATOR: HOLGER PINEDA, PHD Release to patient->Immediate López Lind MD HEMATOLOGY ORDERABLES Final Result Performing Organization Address City/[facility]/ZIP Co de Phone Number [address] [place] [address], [place] [phone] * LACTATE DEHYDROGENASE (LD) (02/27/2025 3:48 PM DIRECTOR OF PLAYER PERSONNEL) LDH 199 140 - 271 U/L [facility] Blood 02/27/2025 3:48 PM DIRECTOR OF PLAYER PERSONNEL [facility] - 02/28/2025 8:51 AM DIRECTOR OF PLAYER PERSONNEL Release to patient->Immediate us López Lind MD CHEMISTRY ORDERABLES Final R esult Performing Organization Address City/[facility]/ZIP Co de Phone Number [facility] Cancer [address] [place] [address], [place] [phone] from Last 3 Months Insurance MEDICA Care Teams Bending Frame Operator Relationship Specialty Start Date End Date Luh Santoyo DO [address] [address] PCP - General Family Medicine 02/07/25 López Lind MD [address] [place] [phone] Consulting Physician Oncology 02/07/25
[2025-02-28 09:41] LABS: Hematocrit 47.9 % (42.0-52.0); Hemoglobin 14.9 g/dL (14.0-18.0); Mean Corpuscular HGB Conc 31.1 g/dl (32-36); Mean Corpuscular Hemoglobin 29.3 pg (26-34); Mean Corpuscular Volume 94.1 fl (80-100); Platelet Count Result 162 k/mm3 (150-375); Red Blood Count 5.09 M/mm3 (4.6-6.20); White Blood Count 6.5 K/mm3 (4.5-10.0)
[2025-02-28 09:52] LABS: INR 1.3; Prothrombin Time 15.6 Seconds (11.1-14.7)
[2025-02-28 10:04] LABS: Iron 109 ug/dL (49-181)
[2025-02-28 10:17] LABS: Immunoglobulin G 1258 mg/dL (700-1600)
[2025-02-28 10:21] LABS: Percent Iron Saturation 33 % (20-50)
[2025-02-28 10:46] LABS: Ferritin 67.40 ng/mL (11.1-264)
[2025-02-28 11:14] LABS: Alanine Aminotransferase 136 U/L (6-50); Albumin Level 4.2 g/dL (3.5-5.1); Alkaline Phosphatase 209 U/L (38-126); Anion Gap 10 mmol/L (4-12); Aspartate Amino Transferase 87 U/L (17-59); Bilirubin,Total 0.6 mg/dL (0.2-1.3); Blood Urea Nitrogen 28 mg/dL (9-20); Calcium 9.1 mg/dL (8.4-10.2); Carbon Dioxide 21 mmol/L (22-30); Chloride 106 mmol/L (98-107); Estimated Glomerular Filt Rate 50; Glucose 120 mg/dL (65-110); Potassium 4.6 mmol/L (3.4-5.0); Sodium 137 mmol/L (137-145); Total Protein 7.1 g/dL (6.3-8.2)
[2025-03-01 07:09] LABS: GGT 264 IU/L (0-65)
== END 2025-02-28 09:01 | disposition home or self-care (01) ==
PROVIDERS: PCP Internal Medicine; Visit Provider Nurse Practitioner
DX: R79.89 Other specified abnormal findings of blood chemistry (principal); K74.60 Unspecified cirrhosis of liver
CPT/HCPCS: 36415; 80053; 82105; 82390; 82728; 82784; 82977; 83540; 83550; 85027; 85610; 86015; 86376; 86381